=== PATIENT | female | born 1955 | race Caucasian/White ===

== ENCOUNTER → 2019-09-13 09:25 | Outpatient (BNVA) | payer MEDICARE, OTHER, SELFPAY | PROVIDERS: Family Provider Physician Assistant Medical; PCP Physician Assistant Medical; Visit Provider Internal Medicine Rheumatology | DX: M47.814 Spondylosis without myelopathy or radiculopathy, thoracic region (principal); M18.11 Unilateral primary osteoarthritis of first carpometacarpal joint, right hand; Z79.899 Other long term (current) drug therapy; I83.93 Asymptomatic varicose veins of bilateral lower extremities | CPT/HCPCS: 36415; 84550; 85651; 86140; 99213 ==

== ENCOUNTER → 2020-02-20 08:38 | Outpatient (BNVA) | payer MEDICARE, OTHER, SELFPAY | PROVIDERS: Family Provider Physician Assistant Medical; PCP Family Medicine; Visit Provider Dermatology | DX: L21.9 Seborrheic dermatitis, unspecified (principal); L82.0 Inflamed seborrheic keratosis; D18.01 Hemangioma of skin and subcutaneous tissue; L81.4 Other melanin hyperpigmentation; B35.1 Tinea unguium; I78.1 Nevus, non-neoplastic; Z12.83 Encounter for screening for malignant neoplasm of skin | CPT/HCPCS: 17000; 17110; 99203; 99204 ==

== ENCOUNTER → 2020-05-21 14:18 | Outpatient (BNVA) | payer MEDICARE, OTHER, SELFPAY | PROVIDERS: Family Provider Physician Assistant Medical; PCP Family Medicine; Visit Provider Internal Medicine Rheumatology | DX: M47.814 Spondylosis without myelopathy or radiculopathy, thoracic region (principal); M18.11 Unilateral primary osteoarthritis of first carpometacarpal joint, right hand; Z79.899 Other long term (current) drug therapy; I73.00 Raynaud's syndrome without gangrene; I83.93 Asymptomatic varicose veins of bilateral lower extremities | CPT/HCPCS: 99213 ==

== ENCOUNTER 2020-05-21 15:29 | Outpatient (CLI) | payer MEDICARE, OTHER, SELFPAY ==
[2020-05-21 15:54] LABS: Basophils # 0.1 10^3/uL (0.0-0.1); Basophils % 0.8 %; Eosinophils # 0.2 10^3/uL (0.0-0.8); Hemoglobin 13.7 g/dL (11.5-15.3); Lymphocytes # 1.8 10^3/uL (0.8-4.8); Lymphocytes % 18.7 %; Mean Corpuscular HGB Conc 32.6 g/dL (30.0-36.0); Mean Corpuscular Hemoglobin 29.3 pg (28.0-34.0); Mean Corpuscular Volume 89.9 fL (81-99); Mean Platelet Volume 9.7 fL (7.4-10.4); Monocytes # 0.8 10^3/uL (0.2-0.9); Monocytes % 8.5 %; Neutrophils # 6.84 10^3/uL (1.8-7.7); Neutrophils % 69.7 %; Nucleated Red Blood Cells % 0 %; Platelet Count 275 10^3/cmm (130-400); Red Blood Count 4.67 10^6/uL (4.1-5.3); Red Cell Distribution Width 13.2 % (12.1-15.1); White Blood Count 9.8 10^3/uL (4.0-10.0)
--- NOTE | 2020-05-21 15:54 | XRR_ITS ---
PROCEDURE INFORMATION: Exam: XR Pelvis Exam date and time: 05/21/2020 4:10 PM Age: 65 years old Clinical indication: Other: Low back pain TECHNIQUE: Imaging protocol: XR pelvis. Views: 1 or 2 view. COMPARISON: No relevant prior studies available. FINDINGS: Bones/joints: There are moderate to severe degenerative changes in the lower lumbar spine and moderate degenerative changes in both sacroiliac joints and hip joints. There is chondrocalcinosis in both hips. No acute fracture, bony destruction or avascular necrosis. No evidence of sacroiliitis. Soft tissues: Unremarkable. XR/XR pelvis 1-2V* [id number] IMPRESSION: Degenerative changes greatest in the lumbar spine. No acute bony abnormality. Calcific tendinopathy in the hips is noted.
--- NOTE | 2020-05-21 15:54 | XRR_ITS ---
PROCEDURE INFORMATION: Exam: XR Lumbosacral Spine, 2 or 3 Views Exam date and time: 05/21/2020 4:10 PM Age: 65 years old Clinical indication: Low back pain; Prior surgery; Surgery type: L4/l5 disc replacment TECHNIQUE: Imaging protocol: XR of the lumbosacral spine, 2 or 3 views. COMPARISON: No relevant prior studies available. FINDINGS: Vertebrae: There is a probable old fracture of the superior endplate of L2 involving the superior endplate without significant retropulsed bone. There are marginal osteophytes and sclerosis Severe disc space narrowing and endplate degenerative changes are noted at L4-L5 and L5-S1. There is no subluxation. Vacuum discs are noted at L4-L5 and L5-S1. Soft tissues: Unremarkable. XR/XR lumbar spine 2-3V* [id number] IMPRESSION: Probable old anterior column fracture of L2 without definite retropulsed bone. No acute fracture or subluxation. Severe degenerative changes in the lower lumbar spine are noted.
[2020-05-21 16:47] LABS: Alanine Aminotransferase 22 U/L (0-33); Albumin Level 4.4 g/dL (3.5-5.2); Aspartate Amino Transferase 22 U/L (0-32); Total Bilirubin 0.2 mg/dL (0.15-1.2); Total Protein 7.4 g/dL (6.6-8.7)
[2020-05-21 16:52] LABS: Erythrocyte Sedimentation Rate 32 mm/hr (0-15)
[2020-05-21 17:40] LABS: C Reactive Protein 6.6 mg/L (0.0-4.9)
[2020-05-21 17:57] LABS: Alkaline Phosphatase 120 IU/L (35-105); Uric Acid 6.7 mg/dL (2.4-5.7)
[2020-05-22 14:28] LABS: Anti-Nuclear Antibody Screen NEGATIVE (NEGATIVE)
== END 2020-05-21 15:30 | disposition home or self-care (01) ==
LOC: LAB 15:37
PROVIDERS: PCP Family Medicine; Visit Provider Internal Medicine Rheumatology
DX: Z79.899 Other long term (current) drug therapy (principal); M54.5 Low back pain
CPT/HCPCS: 36415; 72100; 72170; 80076; 82565; 84550; 85025; 85651; 86038; 86140

== ENCOUNTER 2020-06-16 12:21 | Outpatient (CLI) | payer MEDICARE, OTHER, SELFPAY ==
--- NOTE | 2020-06-16 12:45 | XR_ITS ---
WS: [id number] Bone mineral density performed on a [employer], 06/16/2020 Clinical data: osteoporosis screening Findings: The first 4 lumbar vertebral bodies demonstrated the bone mineral density of 1.099 g/cm2 for a young adult T score of -0.7. Measurement of the left hip reveals a bone mineral density of 0.923 g/cm2 with a young adult T score of -0.7. Measurement of the right hip reveals the bone mineral density of 0.848 g/cm2 for young adult T score of -1.3. XR/XR DEXA axial skeleton* [id number] Impression: 1. Normal bone mineral density of the lumbar spine and left hip. 2. Osteopenia of the right hip.
== END 2020-06-16 12:22 | disposition home or self-care (01) ==
LOC: RADWPI 12:24
PROVIDERS: PCP Family Medicine; Visit Provider Internal Medicine Rheumatology
DX: M81.0 Age-related osteoporosis without current pathological fracture (principal); M85.88 Other specified disorders of bone density and structure, other site
CPT/HCPCS: 77080

== ENCOUNTER → 2022-02-02 10:32 | Outpatient (BNVA) | payer MEDICARE, SELFPAY | PROVIDERS: PCP Family Medicine; Visit Provider Internal Medicine | DX: M18.11 Unilateral primary osteoarthritis of first carpometacarpal joint, right hand (principal); M47.814 Spondylosis without myelopathy or radiculopathy, thoracic region; M54.2 Cervicalgia; N18.9 Chronic kidney disease, unspecified; I73.00 Raynaud's syndrome without gangrene; R79.82 Elevated C-reactive protein (CRP); Z90.5 Acquired absence of kidney | CPT/HCPCS: 72040; 72072; 73030; 73120; 99214 ==

== ENCOUNTER → 2022-02-25 10:15 | Outpatient (BNVA) | payer MEDICARE, SELFPAY | PROVIDERS: PCP Family Medicine; Visit Provider Internal Medicine | DX: M18.11 Unilateral primary osteoarthritis of first carpometacarpal joint, right hand (principal); M47.814 Spondylosis without myelopathy or radiculopathy, thoracic region; I73.00 Raynaud's syndrome without gangrene; R79.82 Elevated C-reactive protein (CRP); I10 Essential (primary) hypertension; I83.93 Asymptomatic varicose veins of bilateral lower extremities; Z87.891 Personal history of nicotine dependence | CPT/HCPCS: 20600; 36415; 80053; 84550; 85025; 85651; 86140; 86200; 86431; 99214 ==

== ENCOUNTER 2022-03-26 11:45 | Outpatient (CLI) | payer MEDICARE, OTHER, SELFPAY ==
--- NOTE | 2022-03-26 12:00 | USCV_ITS ---
Nanette Gao Age: 67 Gender: F : 1955 Exam Date: 03/26/2022 12:26 Ordering Phys: Jack Grimaldo M.D ([email or web address]) Technologist: Mine Aceves [place]am [place] [facility] [place]: leg pain Risk Factors: previous smoker. Previous Vascular Surgery: None RIGHT LEFT BP: 135.0 / 7.00 BP: 120.0/ 70.00 0 0 Waveform Velocity (cm/s) Velocity (cm/s) Waveform Triphasic 97.4 Iliac Prox 88.0 Triphasic Triphasic 99.1 Iliac Mid 78.6 Triphasic Triphasic 70.9 Iliac Distal 74.3 Triphasic Triphasic 53.6 PHARMACOGENETICIST 73.5 Triphasic Biphasic 52.0 SFA Prox 68.4 Biphasic Biphasic SFA Mid Biphasic 50.2 51.3 Biphasic 172.5 SFA Dist 123.5 Monophasic Monophasic 32.0 POP 38.1 Biphasic Biphasic 22.7 DOCUMENT IMAGE TECHNICIAN 26.2 Monophasic Biphasic 29.5 DPA 39.4 Monophasic 0.6 AJAY 0.7 FINDINGS RT DPA- 82, RT DOCUMENT IMAGE TECHNICIAN- 82 - RT femoral artery mid/distal segments exhibit flow changes with vessel narrowing LT DPA - 88, LT DOCUMENT IMAGE TECHNICIAN- 84 - Left femoral artery mid/distal segments exhibit flow changees with vessel narrowing. A possible AV fistula noted in the mid segment of the femoral artery. Moderate dense diffuse plaques in the superficial femoral artery on both sides. CONCLUSIONS Abnormal resting AJAY of 0.6 , suggesting moderately severe peripheral artery disease involving the distal superficial femoral artery on the right side. Abnormal resting AJAY of 0.7 suggesting moderate peripheral artery disease involving the distal superficial femoral artery on the left side. Dr Sawyer Garvin MD [facility] (Electronically Signed) Final Date: 28 March 2022 18:12 S
== END 2022-03-26 11:46 | disposition home or self-care (01) ==
LOC: RAD 11:48
PROVIDERS: PCP Family Medicine; Visit Provider Internal Medicine
DX: M79.606 Pain in leg, unspecified (principal); I73.00 Raynaud's syndrome without gangrene
CPT/HCPCS: 93925

== ENCOUNTER 2022-04-23 08:19 | Outpatient (CLI) | payer MEDICARE, OTHER, SELFPAY ==
--- NOTE | 2022-04-23 08:25 | MM_ITS ---
WS: [id number] Bilateral screening 3D tomosynthesis digital mammogram, 04/23/2022 Clinical Data: SCREENING Comparison: 11/06/2020, 06/27/2019, 06/23/2018, 12/16/2016, 06/19/2015, 05/09/2014, 10/10/2012. Findings: The breast parenchymal pattern shows fat replacement. No spiculated masses or clustered calcification s are seen. There are no secondary signs of carcinoma. Mole markers are on both breasts. MM/[place] [id number] Impression: 1. Negative bilateral mammogram unchanged. 2. Recommend annual screening mammograms. BIRADS: 1-Negative FOLLOW UP: 1 Year Follow-up The CAD mold checker was used.
== END 2022-04-23 08:20 | disposition home or self-care (01) ==
LOC: RAD 08:20
PROVIDERS: PCP Family Medicine; Visit Provider Family Medicine
DX: Z12.31 Encounter for screening mammogram for malignant neoplasm of breast (principal)
CPT/HCPCS: 77063; 77067

== ENCOUNTER 2022-04-27 13:07 | Outpatient (CLI) | payer MEDICARE, OTHER, SELFPAY ==
--- NOTE | 2022-04-27 13:30 | USCV_ITS ---
Nanette Gao Age: 67 Gender: F : 1955 Exam Date: 04/27/2022 13:26 Ordering Phys: Jack Grimaldo M.D ([email or web address]) Technologist: Joe Stringer Exam Location: [facility] – [place] Indication: HISTORY: PROCEDURES: Bilateral duplex Venous Insufficiency study of the Deep and Superficial systems was carried out according to normal protocol with the patient in supine positon for deep system and dependent position for the superficial system. FINDINGS: All deep veins demonstrated compressibility without evidence of intraluminal thrombus or increased echogenicity. Spectral analysis of Doppler signals demonstrates normal response to compression maneuvers indicating patency without obstruction. Reflux determinations were made with the patient in the dependent position, the weight being on the contralateral leg. There is sinificant reflux in both leg the great saph on the lt is very shallow CONCLUSIONS 1. No evidence of DVT in the above-mentioned identifiable veins. 2. On the right side significant venous reflux of greater than 500 milliseconds were noted at the proximal, mid, distal and below-knee segments of the greater saphenous vein. The proximal, distal and below-knee segments of the greater saphenous vein were found to be less than 1 cm deep from the surface. The venous segments are of normal caliber 3. On the left side, significant venous reflux of greater than 500 ms were noted at the proximal, mid and distal segments of the greater saphenous vein. These venous segments were found to be very superficial. Proximal segment of the small saphenous vein was not visualized. No other significant reflexes were noted Dr Sawyer Garvin MD [facility] (Electronically Signed) Final Date: 01 May 2022 15:44 S
== END 2022-04-27 13:08 | disposition home or self-care (01) ==
LOC: RAD 13:07
PROVIDERS: PCP Family Medicine; Visit Provider Internal Medicine
DX: I83.93 Asymptomatic varicose veins of bilateral lower extremities (principal); I87.2 Venous insufficiency (chronic) (peripheral)
CPT/HCPCS: 93970

== ENCOUNTER → 2022-05-06 15:06 | Outpatient (BNVA) | payer MEDICARE, OTHER, SELFPAY | PROVIDERS: PCP Family Medicine; Visit Provider Internal Medicine | DX: I12.9 Hypertensive chronic kidney disease with stage 1 through stage 4 chronic kidney disease, or unspecified chronic kidney disease (principal); N18.9 Chronic kidney disease, unspecified; I73.9 Peripheral vascular disease, unspecified; Z87.891 Personal history of nicotine dependence | CPT/HCPCS: 99214 ==

== ENCOUNTER 2022-08-01 22:59 | Inpatient (IN) | payer MEDICARE, OTHER, SELFPAY ==
[2022-08-01 23:02] VITALS: BP 146/114; PULSE 159; RESP 25; TEMP 36.8; O2SAT 97; BMI 31.8
--- NOTE | 2022-08-01 23:15 | XRR_ITS ---
PROCEDURE INFORMATION: Exam: XR Chest Exam date and time: 08/01/2022 11:42 PM Age: 67 years old Clinical indication: Dyspnea and other: Tachycardia; Additional info: Palpitations TECHNIQUE: Imaging protocol: Radiologic exam of the chest. Views: 1 view. COMPARISON: CR XR chest 1V [id number] 03/14/2019 6:16 AM FINDINGS: Lungs: Unremarkable. No consolidation. Pleural spaces: Unremarkable. No pleural effusion. No pneumothorax. Heart/Mediastinum: Unremarkable. No cardiomegaly. Bones/joints: Unremarkable. XR/XR chest 1V portable [id number] IMPRESSION: No acute findings.
[2022-08-01 23:16] VITALS: BP 142/116; PULSE 162; RESP 24; O2SAT 97
--- NOTE | 2022-08-01 23:16 | ECG_ITS ---
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 Measurements Intervals [place] Rate: 159 P: 0 MD: 0 QRS: -6 QRSD: 83 T: 51 QT: 279 QTc: 454 Interpretive Statements ATRIAL FIBRILLATION WITH RAPID VENTRICULAR RESPONSE POSSIBLE RIGHT VENTRICULAR CONDUCTION DELAY [RSR (QR) IN V1/V2] PROBABLE SEPTAL MYOCARDIAL INFARCTION , OF INDETERMINATE AGE [35 ms Q WAVE IN V1/V2] ST DEPRESSION, CONSIDER SUBENDOCARDIAL INJURY Compared to ECG 03/14/2019 05:49:27 ST (T wave) deviation now present Sinus bradycardia no longer present Myocardial infarct finding still present Electronically Signed On 08-02-2022 5:52:51 HOGSHEAD FILLER by Mel Briseno M.D. [id number]
[2022-08-01 23:27] LABS: Basophils # 0.1 10^3/uL (0.0-0.1); Basophils % 0.7 %; Eosinophils # 0.4 10^3/uL (0.0-0.8); Eosinophils % 4.1 %; Hematocrit 41.9 % (37.0-47.0); Hemoglobin 13.9 g/dL (11.5-15.3); Lymphocytes # 2.5 10^3/uL (0.8-4.8); Lymphocytes % 28.9 %; Mean Corpuscular HGB Conc 33.2 g/dL (30.0-36.0); Mean Corpuscular Hemoglobin 28.8 pg (28.0-34.0); Mean Corpuscular Volume 86.9 fl (81-99); Mean Platelet Volume 10.6 fL (7.4-10.4); Monocytes # 0.9 10^3/uL (0.2-0.9); Monocytes % 10.1 %; Nucleated Red Blood Cells % 0 %; Platelet Count 243 10^3/cmm (130-400); Red Blood Count 4.82 10^6/uL (4.1-5.3); Red Cell Distribution Width 13.5 % (12.1-15.1); White Blood Count 8.8 10^3/uL (4.0-10.0)
[2022-08-01] MEDS: dilTIAZem 5 mg/mL SDV 5 mL 20 MG IVP (23:44)
[2022-08-01 23:45] VITALS: BP 131/100; PULSE 154; RESP 17; O2SAT 95
[2022-08-01] MEDS: sodium chloride 0.9% 1,000 ML 200 ML IV (23:49)
[2022-08-01 23:51] LABS: Troponin(5th) Baseline 7 ng/L (0-10)
[2022-08-01] MEDS: dilTIAZem 100 MG in sodium chloride 0.9% (add-van) 100 ML IV (23:51)
[2022-08-01 23:55] VITALS: BP 129/89; PULSE 129; RESP 17; O2SAT 95
[2022-08-02] VITALS (63 sets, daily range): BP systolic 95–132; BP diastolic 65–99; PULSE 82–147; RESP 13–34; TEMP 36.3–36.6; O2SAT 83–98; BMI 32.8
[2022-08-02 00:01] LABS: Alanine Aminotransferase 20 U/L (0-33); Albumin Level 4.2 g/dL (3.5-5.2); Alkaline Phosphatase 103 U/L (35-105); Anion Gap 14.8 (5-19); Aspartate Amino Transferase 19 U/L (0-32); Blood Urea Nitrogen 17 mg/dL (8-23); Calcium 9.8 mg/dL (8.5-10.5); Carbon Dioxide 27 mmol/L (22-29); Chloride 97 mmol/L (98-107); Creatine Phosphokinase 105 U/L (26-192); Globulin 3.3 g/dL (1.3-4.6); Glucose 136 mg/dL (65-115); NT Pro B Type Natriuretic Pept 55 pg/mL (0-125); Osmolality Calculated 286 mOsm/kg (285-295); Sodium 136 mmol/L (136-145); Thyroid Stimulating Hormone 2.11 uIU/mL (0.27-4.20); Total Bilirubin 0.2 mg/dL (0.15-1.2); Total Protein 7.5 g/dL (6.6-8.7)
[2022-08-02 00:04] LABS: Potassium 2.8 mmol/L (3.5-5.1)
--- NOTE | 2022-08-02 00:04 | ED_ITS ---
HPI - Arrhythmia/Palpitations General: Chief Complaint: ER Hold Stated Complaint: CP Time Seen by Provider: 08/01/22 23:08 Source: patient History of Present Illness: 48yo female. She presents with chest discomfort, and shortness of breath. She has had palpitations this evening as well. She has no history of atrial fibrillation. MD complaint: rapid heart beat and heart racing Onset (ago): hour(s) Duration: constant Severity: moderate Associated symptoms: Reports anxiety, nausea and short of breath; Deny vomiting Review of Systems Const: Denies: fever(s) Eyes: Denies: change in vision ENMT: Denies: throat pain Card: Reports: chest pain and palpitations Resp: Reports: dyspnea GI: Reports: nausea; Denies: vomiting Neuro: Denies: headache(s) Psych: Reports: anxiety PFSH ED PFSH: Medical History Arthritis of carpometacarpal (CMC) joint of right thumb Back pain with history of spinal surgery Cervicalgia CKD (chronic kidney disease) CRP elevated DJD (degenerative joint disease) of thoracic spine Essential hypertension Inflammatory arthritis Osteoarthritis Raynaud phenomenon Raynauds disease Varicose veins of both lower extremities Surgical History History of appendectomy History of cholecystectomy Family History Grandmother Diabetes Father Family history of CABG Denies family history of Rheumatoid arthritis Lupus Social History Smoking and tobacco status: former smoker Alcohol intake: never Physical Exam Const: GENERAL APPEARANCE: cooperative and ill appearing (mild) HENMT: COMMON NORMALS: normocephalic and Normal external nose present HEAD & SCALP: normocephalic FACE & SINUS: normal facial exam and face symmetric NOSE: Normal external nose present Eye: COMMON NORMALS: Equal, round and reactive pupils present and EOMs intact bilaterally PUPIL: Yes Equal, round and reactive pupils present Neck/C-Spine: GENERAL: Yes trachea midline Chest: CHEST: Yes Symmetrical chest wall rise Resp: COMMON NORMALS: normal respiratory effort, No use of accessory muscles and clear to auscultation bilaterally AUSCULTATION: clear to auscultation bilaterally Cardio: RATE: tachycardic RHYTHM: abnormal rhythm GI: COMMON NORMALS: Normal to inspection, nondistended, normoactive bowel sounds present and Soft to palpation PALPATION: Yes Soft to palpation Extremity: COMMON NORMALS: no pedal edema Neuro: TIAN COMA SCALE: document GCS findings Tian coma scale eye opening: Spontaneous Carver coma scale verbal response: Orientated Tian coma scale motor response: Obey commands Tian coma scale total score: 15 SPEECH: speech normal Skin: COMMON NORMALS: no rashes or lesions noted GENERAL SKIN EXAM: no rashes or lesions noted Course Vital Signs: Vital signs: Vital Signs Temperature 98.4 F 08/03/22 16:39 Pulse Rate 60 08/03/22 16:39 Respiratory Rate 16 08/03/22 16:39 Blood Pressure 141/75 08/03/22 16:39 Pulse Oximetry 96 08/03/22 16:39 Oxygen Delivery Me thod 08/03/22 15:50 MDM - Arrhythmia/Palpitations Medical Decision Making Pt found to be in atrial fibriallation with RVR. Given a bolus of diltiazem with some improvement. She is placed on a drip. Heart rate is below 100. Troponin is negative. no significant ST changes cxr was negative. she'l be a dmitted for rate control and further workup. hospitalist is notified and has accepted. Lab Data 08/01/22 23:14 08/01/22 23:14 Radiology Impressions Chest X-Ray 08/01/22 23:15 IMPRESSION: No acute findings. Laboratory Results WBC 7.3 10^3/uL (4.0-10.0) 08/02/22 07:20 RBC 4.47 10^6/uL (4.1-5.3) 08/02/22 07:20 Hgb 12.7 g/dL (11.5-15.3) 08/02/22 07:20 Hct 39.8 % (37.0-47.0) 08/02/22 07:20 MCV 89.0 fl (81-99) 08/02/22 07:20 MCH 28.4 pg (28.0-34.0) 08/02/22 07:20 MCHC 31.9 g/dL (30.0-36.0) 08/02/22 07:20 RDW 13.8 % (12.1-15.1) 08/02/22 07:20 Plt Count 252 10^3/cmm (130-400) 08/02/22 07:20 MPV 9.8 fL (7.4-10.4) 08/02/22 07:20 Neut % (Auto) 58.6 % 08/02/22 07:20 Lymph % (Auto) 25.6 % 08/02/22 07:20 [place] % (Auto) 11.5 % 08/02/22 07:20 Eos % (Auto) 3.5 % 08/02/22 07:20 Baso % (Auto) 0.7 % 08/02/22 07:20 Neut # (Auto) 4.29 10^3/uL (1.8-7.7) 08/02/22 07:20 Lymph # (Auto) 1.9 10^3/uL (0.8-4.8) 08/02/22 07:20 [place] # (Auto) 0.8 10^3/uL (0.2-0.9) 08/02/22 07:20 Eos # (Auto) 0.3 10^3/uL (0.0-0.8) 08/02/22 07:20 Baso # (Auto) 0.1 10^3/uL (0.0-0.1) 08/02/22 07:20 Nucleated RBC % (auto) 0 % 08/02/22 07:20 Nucleated RBCs # 0.0 /100WBC 08/02/22 07:20 PT 13.90 SECONDS (12.1-14.9) 08/01/22 23:48 INR 1.04 (0.8-1.2) 08/01/22 23:48 APTT 29.1 SECONDS (23.9-36.7) 08/01/22 23:48 D-Dimer 0.71 ug/mIFEU (0-0.59) H 08/01/22 23:48 Sodium 143 mmol/L (136-145) 08/02/22 07:12 Potassium 3.9 mmol/L (3.5-5.1) 08/02/22 07:12 Chloride 110 mmol/L (98-107) H 08/02/22 07:12 Carbon Dioxide 23 mmol/L (22-29) 08/02/22 07:12 Anion Gap 13.9 (5-19) 08/02/22 07:12 BUN 15 mg/dL (8-23) 08/02/22 07:12 Creatinine 0.6 mg/dL (0.5-0.9) 08/02/22 07:12 GFR Calculation 99.1 mL/min (90-130) 08/02/22 07:12 Glucose 106 mg/dL (65-115) 08/02/22 07:12 Estimat Average Glucose 114 08/02/22 07:20 Hemoglobin A1c 5.6 % (4.0-6.0) 08/02/22 07:20 Calculated Osmolality 297 mOsm/kg (285-295) H 08/02/22 07:12 Calcium 8.6 mg/dL (8.5-10.5) 08/02/22 07:12 Magnesium 2.0 mg/dL (1.7-2.3) 08/02/22 07:12 Total Bilirubin 0.2 mg/dL (0.15-1.2) 08/02/22 07:12 AST 14 U/L (0-32) 08/02/22 07:12 ALT 15 U/L (0-33) 08/02/22 07:12 Alkaline Phosphatase 87 U/L (35-105) 08/02/22 07:12 Creatine Kinase 105 U/L (26-192) 08/01/22 23:14 Troponin T Baseline 7 ng/L (0-10) 08/01/22 23:14 Troponin T Hi Sens 6Hr 24.26 ng/L (0-10) H 08/02/22 07:12 Troponin T Hi Sens 6Hr Delta 17.26 ng/L (0-12) H* 08/02/22 07:12 NT-Pro-B Natriuret Pep 55 pg/mL (0-125) 08/01/22 23:14 Total Protein 6.1 g/dL (6.6-8.7) L 08/02/22 07:12 Albumin 3.7 g/dL (3.5-5.2) 08/02/22 07:12 Globulin 2.4 g/dL (1.3-4.6) 08/02/22 07:12 Triglycerides 112 mg/dL (0-150) 08/02/22 07:12 Cholesterol 173 mg/dL (0-200) 08/02/22 07:12 LDL Cholesterol, Calc 104 mg/dL (50-129) 08/02/22 07:12 HDL Cholesterol 47 mg/dL (60-100) L 08/02/22 07:12 LDL/HDL Ratio 2.21 RATIO (0.00-3.22) 08/02/22 07:12 Cholesterol/HDL Ratio 3.68 mg/dL (0.0-4.40) 08/02/22 07:12 Procalcitonin 0.02 ng/mL (0-0.5) 08/02/22 07:12 TSH 2.11 uIU/mL (0.27-4.20) 08/01/22 23:14 Urine Color Yellow (Yellow) 08/02/22 06:58 Urine Appearance Sl hazy (CLEAR) A 08/02/22 06:58 Urine pH 6.5 (5-7) 08/02/22 06:58 Ur Specific Central 1.015 (1.005-1.030) 08/02/22 06:58 Urine Protein Neg (Negative) 08/02/22 06:58 Urine Glucose (UA) Norm (Normal) 08/02/22 06:58 Urine Ketones Negative (Negative) 08/02/22 06:58 Urine Blood Neg (Negative) 08/02/22 06:58 Urine Nitrate Negative (Negative) 08/02/22 06:58 Urine Bilirubin Neg (Negative) 08/02/22 06:58 Urine Urobilinogen Norm mg/dL (Negative) 08/02/22 06:58 Ur Leukocyte Esterase 1+ (Negative) H 08/02/22 06:58 Urine RBC 0-4 /hpf (0-2) H 08/02/22 06:58 Urine WBC 5-10 /hpf (0-5) H 08/02/22 06:58 Ur Squamous Epith Cells 0-4 /hpf (0-5) H 08/02/22 06:58 Amorphous Sediment Not Reportable 08/02/22 06:58 Urine Bacteria Trace /hpf (NONE) 08/02/22 06:58 Urine Mucus Trace /hpf 08/02/22 06:58 Nasal Influ A H1 2008 PCR Not detected (NOT DETECT) 08/01/22 23:48 Adenovirus (PCR) Not detected (NOT DETECT) 08/01/22 23:48 C. pneumoniae DNA (PCR) Not detected (NOT DETECT) 08/01/22 23:48 Coronavirus 229E (PCR) Not detected (NOT DETECT) 08/01/22 23:48 Human Metapneumovir PCR Not detected (NOT DETECT) 08/01/22 23:48 Influenza A (H1) PCR Not detected (NOT DETECT) 08/01/22 23:48 Influenza A (H3) PCR Not detected (NOT DETECT) 08/01/22 23:48 Influenza Type A (PCR) Not detected (NOT DETECT) 08/01/22 23:48 Influenza Type B (PCR) Not detected (NOT DETECT) 08/01/22 23:48 M. pneumoniae (PCR) Not detected (NOT DETECT) 08/01/22 23:48 Parainfluenza 1 (PCR) Not detected (NOT DETECT) 08/01/22 23:48 Parainfluenza 2 (PCR) Not detected (NOT DETECT) 08/01/22 23:48 Parainfluenza 3 (PCR) Not detected (NOT DETECT) 08/01/22 23:48 Parainfluenza 4 (PCR) Not detected (NOT DETECT) 08/01/22 23:48 RSV Type A (PCR) Not detected (NOT DETECT) 08/01/22 23:48 RSV Type B (PCR) Not detected (NOT DETECT) 08/01/22 23:48 Entero/Rhino (PCR) Not detected (NOT DETECT) 08/01/22 23:48 SARS-CoV-2 (PCR) Not detected (NOT DETECT) 08/01/22 23:48 Critical Care Time Critical Care Time: Critical Care Time: Yes Total Critical Care Time: 35 Attestation: This case had a high probability of a clinically significant, sudden, or life threatening deterioration of this patient's condition which required my full and direct attention, intervention and personal management. time is independent of any procedures performed. Discharge Plan Discharge Patient Disposition: Placed in Observation Admit Provider: June Ross Clinical Impression: Atrial fibrillation, Chest pain Discharge Diet: Usual diet Discharge Activity: Resume usual activity Coding Level of Care Code ED Zinc Furnace Charger for Preet Fernández
[2022-08-02 00:08] LABS: INR 1.04 (0.8-1.2)
[2022-08-02 00:10] LABS: Partial Thromboplastin Time 29.1 SECONDS (23.9-36.7)
[2022-08-02 00:12] LABS: D Dimer 0.71 ug/mIFEU (0-0.59)
[2022-08-02] MEDS: lidocaine 2% viscous 15 ML, aluminum-mag hydrox-simethicon 30 ML, sucralfate oral liq 1 GM PO (00:53)
[2022-08-02] MEDS: potassium chloride oral liq 20 mEq/15 mL UDC 40 MEQ PO (00:53)
[2022-08-02] MEDS: metoprolol tartrate 1 mg/1 mL SDV 5 mL 2.5 MG IVP (00:55)
[2022-08-02] MEDS: potassium chloride premix 100 ML 50 MEQ IV (01:01)
--- NOTE | 2022-08-02 01:16 | ECG_ITS ---
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 Measurements Intervals [place] Rate: 120 P: 0 NV: 0 QRS: -7 QRSD: 71 T: 24 QT: 316 QTc: 446 Interpretive Statements ATRIAL FIBRILLATION WITH RAPID VENTRICULAR RESPONSE LOW QRS VOLTAGE IN PRECORDIAL LEADS [QRS DEFLECTION < 1.0 mV IN CHEST LEADS] POSSIBLE RIGHT VENTRICULAR CONDUCTION DELAY [RSR (QR) IN V1/V2] POSSIBLE SEPTAL MYOCARDIAL INFARCTION , OF INDETERMINATE AGE [30 ms Q WAVE IN V1/V2] Compared to ECG 03/14/2019 05:49:27 Sinus bradycardia no longer present Myocardial infarct finding still present Electronically Signed On 08-02-2022 6:02:21 TALKING BOOKS LIBRARY CLERK by Mel Briseno M.D. [id number]
--- NOTE | 2022-08-02 01:25 | P.HP_ITS ---
Providers/Chief Complaint Primary Care Provider: Grady Felton Chief Complaint: CP History of Present Illness Nanette Gao is a 67 year old female with past medical history of degenerative joint disease, essential hypertension, osteoarthritis, Raynaud's disease, varicose veins of bilateral lower extremities, presented to ER with complaint of heart rate being too high. She states that she checked her blood pressure at home and it was in the 200s and heart rate was 159. Thereafter she presented to the ER. She also states that she has felt her right lower leg has been little bit more swollen than usual. There is no pain however. She says she may have had a few spells of this questionable high heart rate in the past however she slept it off and did not think much of it. She has never had this before. Denies a history of heart disease, shortness of breath, chest pain, abdominal pain, nausea, vomiting, diarrhea. Family present at bedside. She says she recently saw Dr. Ramsey for pain in her legs for which she was given cilostazol and then she stopped taking it after reading about the side effects. She also states she apparently has 1 kidney. 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 At this time she is comfortable when seen. Blood pressure 160/80. Heart rate 1 15-1 20. Running Cardizem drip at this time. Medications/Allergies Home Medications Medication Instructions Recorded Confirmed Last Taken Type potassium chloride 10 mEq 10 meq PO DAILY 09/12/19 05/06/22 Unknown History capsule,extended release turmeric root extract 500 mg 500 mg PO DAILY 09/12/19 05/06/22 Unknown History capsule magnesium oxide 250 mg PO DAILY 12/17/19 05/06/22 Unknown History multivitamin 1 tab PO DAILY 12/17/19 05/06/22 Unknown History hydrochlorothiazide 50 mg tablet 50 mg PO DAILY #90 tabs 06/24/20 05/06/22 Unknown Rx mupirocin 2 % topical ointment 1 applic topical BID 2 weeks #22 06/08/21 05/06/22 Unknown Rx grams fluticasone propionate 50 1 spray intranasal DAILY PRN 02/25/22 05/06/22 Unknown History mcg/actuation nasal spray,suspension (Flonase Allergy Relief) pantoprazole 40 mg tablet,delayed 40 mg PO DAILY PRN 02/25/22 05/06/22 Unknown History release (Protonix) cilostazol 50 mg tablet 50 mg PO DIRECTED #180 tabs 05/06/22 05/06/22 Unknown Rx dicyclomine 10 mg capsule 10 mg PO QID PRN 05/06/22 05/06/22 Unknown History prednisone 5 mg tablet See Rx Instructions PO DAILY PRN 05/06/22 05/06/22 Unknown History Allergies Allergy/AdvReac Type Severity Reaction Status Date / Time Penicillins Allergy Intermediate rash, hives Verified 08/01/22 23:09 sulfamethoxazole Allergy Mild nausea Verified 08/01/22 23:09 [From Bactrim] trimethoprim [From Bactrim] Allergy Mild nausea Verified 08/01/22 23:09 ciprofloxacin [From Cipro] Allergy Unknown Unknown Verified 08/01/22 23:09 clarithromycin [From Biaxin] Allergy Unknown Unknown Verified 08/01/22 23:09 metronidazole [From Flagyl] Allergy Unknown Unknown Verified 08/01/22 23:09 PFSH Acute PFSH: Medical History Arthritis of carpometacarpal (CMC) joint of right thumb Back pain with history of spinal surgery Cervicalgia CKD (chronic kidney disease) CRP elevated DJD (degenerative joint disease) of thoracic spine Essential hypertension Inflammatory arthritis Osteoarthritis Raynaud phenomenon Raynauds disease Varicose veins of both lower extremities Surgical History History of appendectomy History of cholecystectomy Family History Grandmother Diabetes Father Family history of CABG Denies family history of Rheumatoid arthritis Lupus Social History Smoking and tobacco status: former smoker Alcohol intake: never Vitals/I&O/Wt Last Vital Signs Temp 98.3 F 08/01/22 23:02 Pulse 129 H 08/01/22 23:55 Resp 17 08/01/22 23:55 BP 129/89 08/01/22 23:55 Pulse Ox 95 08/01/22 23:55 O2 Del Method 08/01/22 23:02 Weight last 48 hrs Weight 86.636 kg Physical Exam Narrative: General: Alert oriented x3, patient seen sitting up in bed appearing comfortable telemetry at bedside. HEENT: Normocephalic, atraumatic, EOMI, breathing comfortably. Cardio: irregularly irregular, tachycardic normal S1-S2, Respiratory: Clear to auscultation bilaterally no wheezes no rhonchi no crackles appreciated. GI: Abdomen soft, nontender, nondistended, bowel sounds + Behavior: Appropriate and cooperative Extremities: No bilateral lower extremity edema appreciated. Right leg does appear very very slightly larger than the other leg. Data 08/01/22 23:14 08/01/22 23:14 A&P Assessment and plan (1) Claudication: (2) Raynauds disease: (3) CKD (chronic kidney disease): (4) Essential hypertension: (5) Varicose veins of both lower extremities: Qualifiers: Varicose vein complication: asymptomatic Qualified Code(s): I83.93 - Asymptomatic varicose veins of bilateral lower extremities (6) Arthritis of carpometacarpal (CMC) joint of right thumb: (7) DJD (degenerative joint disease) of thoracic spine: Qualifiers: Spinal osteoarthritis complication: without myelopathy or radiculopathy Qualified Code(s): M47.814 - Spondylosis without myelopathy or radiculopathy, thoracic region (8) Atrial fibrillation: Plan #New onset atrial fibrillation #Hypokalemia #History of osteoarthritis #Varicose veins #Hypertension #Mild peripheral arterial disease #History of renal disease ? Check TSH ? Continue Cardizem drip ? [id number] 4. Patient is on a baby aspirin at home. ? Patient has moderate to high risk for stroke. Discussed with her regarding starting Eliquis. She says she will think about it and let us know. In the meantime I will cover her with therapeutic Lovenox 80x1 ? Replete potassium. Patient received 60 in the ER. To plan on admission ? BNP negative ? Check echo for valvular dysfunction ? Unsure about the solitary kidney. Try reaching out to primary care doctor in a.m.? ? D-dimer 0.71 which if age-adjusted is low risk for VTE ? We will check ultrasound duplex bilateral lower extremities ? Continue to replete electrolytes as needed ? We will hold hydrochlorothiazide at this time Full code DVT prophylaxis: Being covered with therapeutic Lovenox at this time Attestations Medical Necessity Statement*: Admit for observation. Anticipate discharge after heart rate stable. She may have to stay another day if heart rate remains uncontrolled and she requires multiple medications for her atrial fibrillation. Time Spent in Patient Care: 40 Coding Level of Care Code Acute Youth Support Worker for g Fwd Diagnoses Claudication I73.9 Raynauds disease I73.00 CKD (chronic kidney disease) N18.9 Essential hypertension I10 Varicose veins of both lower extremities I83.93 Varicose vein complication: asymptomatic Arthritis of carpometacarpal (CMC) joint of right thumb M18.11 DJD (degenerative joint disease) of thoracic spine M47.814 Spinal osteoarthritis complication: without myelopathy or radiculopathy Atrial fibrillation I48.91
[2022-08-02 01:31] LABS: Adenovirus Not Detected (NOT DETECT); Chlamydia Pneumoniae Not Detected (NOT DETECT); Coronavirus 229E,HKU1,NL63,OC4 Not Detected (NOT DETECT); Human Metapneumovirus Not Detected (NOT DETECT); Human Rhinovirus/Enterovirus Not Detected (NOT DETECT); Influenza A Not Detected (NOT DETECT); Influenza A H1 Not Detected (NOT DETECT); Influenza A H1-2009 Not Detected (NOT DETECT); Influenza A H3 Not Detected (NOT DETECT); Influenza B Not Detected (NOT DETECT); Mycoplasma Pneumoniae Not Detected (NOT DETECT); Parainfluenza Virus Type 1 Not Detected (NOT DETECT); Parainfluenza Virus Type 2 Not Detected (NOT DETECT); Parainfluenza Virus Type 3 Not Detected (NOT DETECT); Parainfluenza Virus Type 4 Not Detected (NOT DETECT); Respiratory Syncytial Virus A Not Detected (NOT DETECT); Respiratory Syncytial Virus B Not Detected (NOT DETECT); SARS-COV-2 Not Detected (NOT DETECT)
--- NOTE | 2022-08-02 02:08 | USCV_ITS ---
Nanette Gao Age: 67 Gender: F : 1955 Exam Date: 08/02/2022 03:01 Ordering Phys: June Ross MD Technologist: Emily Mauro Exam Location: [facility] – [place] Indication: New onset AFIB BP: 86 / 65 HR: 123 Rhythm: Sinus Technical Quality: Adequate MEASUREMENTS (Male / Female) Normal Values 2D ECHO LV Diastolic Diameter PLAX 3.0 cm 4.2 - 5.9 / 3.9 - 5.3 cm LV Systolic Diameter PLAX 2.1 cm LV Chamber Size 2.6 cm IVS Diastolic Thickness 1.1 cm 0.6 - 1.0 / 0.6 - 0.9 cm IVS Systolic Thickness 1.6 cm LVPW Diastolic Thickness 1.2 cm 0.6 - 1.0 / 0.6 - 0.9 cm LVPW Systolic Thickness 1.4 cm RV Chamber Size 2.9 cm LVOT Diameter 2.0 cm LV Ejection Fraction 2D Teich 56.3 % LV Ejection Fraction MOD 2C 70.5 % LV Ejection Fraction 2C AL 69.8 % LA Diameter 3.8 cm LA Width 2.9 cm LA Height 3.9 cm RA Width 3.6 cm RA Height 4.4 cm Aorta at Sinotubular Diameter 3.1 cm IVC Diameter 1.8 cm M-MODE Aortic Annulus Diameter 3.4 cm LA Ao Ratio MM 1.4 MV E Point Septal Separation 0.4 cm DOPPLER AV Peak Velocity 104.0 cm/s LVOT Peak Velocity 95.0 cm/s AV Area Cont Eq vti 2.7 cm squared AV Area Cont Eq pk 2.9 cm squared MV Area PHT 3.6 cm squared MV E' Velocity 44.8 cm/s Mitral E to MV E' Ratio 7.9 Mitral E to LV E' Lateral Ratio 6.5 Mitral E to LV E' Septal Ratio 10.1 TR Peak Velocity 77.5 cm/s TR Peak Gradient 2.4 mmHg TR Mean Velocity 65.7 cm/s TR Mean Gradient 1.8 mmHg TR Velocity Time Integral 20.0 cm Right Atrial Pressure 3.0 mmHg Pulmonary Artery Systolic Pressu 5.4 mmHg RV Acceleration Time 0.1 s RV Ejection Time 0.4 s RV AcT/ET 0.4 FINDINGS Left Ventricle Normal left ventricular size, systolic function and wall thickness, with no regional wall motion abnormalities. Left ventricular ejection fraction is estimated at 60 %. Rhythm precludes evaluation of diastolic function. Right Ventricle Normal right ventricular size and systolic function. RVSP could not be calculated due to incomplete tricuspid regurgitation velocity profile. Right Atrium Normal right atrial size. Left Atrium Normal left atrial size. Mitral Valve Structurally normal mitral valve. No mitral valve stenosis. No mitral valve regurgitation. Aortic Valve Structurally normal trileaflet aortic valve. No aortic valve stenosis. No aortic valve regurgitation. Tricuspid Valve Structurally normal tricuspid valve. No tricuspid valve stenosis. Trace tricuspid valve regurgitation. Pulmonic Valve Pulmonic valve not well visualized. No pulmonary valve stenosis. No pulmonary valve regurgitation. Pericardium No pericardial effusion. Aorta Normal size aortic root and proximal ascending aorta. IVC Inferior vena cava not visualized. CONCLUSIONS 1. Normal left ventricular size, systolic function and wall thickness, with no regional wall motion abnormalities. Left ventricular ejection fraction is estimated at 60 %. 2. Normal right ventricular size and systolic function. 3. No significant valvular abnormality. 4. No prior similar studies to compare. Mel Briseno MD (Electronically Signed) Final Date: 02 August 2022 15:26 S
[2022-08-02] MEDS: pantoprazole 40 mg SDV IVP (03:40)
[2022-08-02] MEDS: heparin 5,000 unit/mL INJ 1 mL 5000 UNIT SUBCUT (03:40)
--- NOTE | 2022-08-02 06:57 | ECG_ITS ---
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 Measurements Intervals [place] Rate: 118 P: 0 OR: 0 QRS: 11 QRSD: 89 T: 60 QT: 342 QTc: 479 Interpretive Statements ATRIAL FIBRILLATION WITH RAPID VENTRICULAR RESPONSE SEPTAL MYOCARDIAL INFARCTION , OF INDETERMINATE AGE [40+ ms Q WAVE IN V1/V2] Compared to ECG 08/02/2022 01:40:00 No significant changes Electronically Signed On 08-02-2022 15:33:45 MH TEACHER by Mel Briseno M.D. [id number]
[2022-08-02 07:28] LABS: Basophils # 0.1 10^3/uL (0.0-0.1); Basophils % 0.7 %; Eosinophils # 0.3 10^3/uL (0.0-0.8); Eosinophils % 3.5 %; Hematocrit 39.8 % (37.0-47.0); Hemoglobin 12.7 g/dL (11.5-15.3); Lymphocytes # 1.9 10^3/uL (0.8-4.8); Lymphocytes % 25.6 %; Mean Corpuscular HGB Conc 31.9 g/dL (30.0-36.0); Mean Corpuscular Hemoglobin 28.4 pg (28.0-34.0); Mean Platelet Volume 9.8 fL (7.4-10.4); Monocytes # 0.8 10^3/uL (0.2-0.9); Monocytes % 11.5 %; Neutrophils # 4.29 10^3/uL (1.8-7.7); Neutrophils % 58.6 %; Nucleated Red Blood Cells % 0 %; Platelet Count 252 10^3/cmm (130-400); Red Blood Count 4.47 10^6/uL (4.1-5.3); Red Cell Distribution Width 13.8 % (12.1-15.1); White Blood Count 7.3 10^3/uL (4.0-10.0)
--- NOTE | 2022-08-02 07:37 | USCV_ITS ---
Nanette Gao Age: 67 Gender: F : 1955 Exam Date: 08/02/2022 07:54 Ordering Phys: June Ross MD Technologist: Joe Stringer Exam Location: [facility] – [place]_ Indication: rt leg leg pain r/o dvt PROCEDURES: The venous duplex Doppler examination of both lower extremities was performed in the standard fashion. The following venous structures were evaluated: common femoral vein, profunda vein, proximal portion of the greater saphenous vein, superficial femoral vein, and the popliteal vein. In addition, the posterior tibial and peroneal trunk were evaluated. FINDINGS: Normal 2-D Doppler and augmentation and compressibility throughout the lower extremity venous structures. Additional imaging through the proximal calf veins also reveals no thrombus. Limited evaluation of the greater saphenous vein is patent with no thrombus.. CONCLUSIONS No evidence of right lower extremity DVT. No evidence of left lower extremity DVT. Pj Dan MD (Electronically Signed) Final Date: 02 August 2022 08:35 S
[2022-08-02 07:40] LABS: Bilirubin Urine Neg (Negative); Blood Urine Neg (Negative); Glucose Urine UA Norm (Normal); Ketones Urine Negative (Negative); Nitrate Urine Negative (Negative); Protein Urine Neg (Negative); Specific Gravity, Urine 1.015 (1.005-1.030); Urine Appearance SL Hazy (CLEAR); Urine Color Yellow (Yellow); Urobilinogen Urine Norm (Negative); pH Urine 6.5 (5-7)
[2022-08-02 07:41] LABS: Add Urine Culture? No; Add Urine Microscopic? YES; Bacteria Urine TRACE /hpf; Leukocyte Esterase Urine 1+ (Negative); Mucus Urine TRACE /hpf; RBC Urine 0-4 /hpf (0-2); Squamous Epithelial Cell Urine 0-4 /hpf (0-5)
[2022-08-02 07:42] LABS: Troponin 5 6HR 24.26 ng/L (0-10)
[2022-08-02 07:45] LABS: Estmated Average Glucose 114; Hemoglobin A1C 5.6 % (4.0-6.0)
[2022-08-02 07:46] LABS: Alanine Aminotransferase 15 U/L (0-33); Albumin Level 3.7 g/dL (3.5-5.2); Alkaline Phosphatase 87 U/L (35-105); Anion Gap 13.9 (5-19); Aspartate Amino Transferase 14 U/L (0-32); Blood Urea Nitrogen 15 mg/dL (8-23); Calcium 8.6 mg/dL (8.5-10.5); Carbon Dioxide 23 mmol/L (22-29); Chloride 110 mmol/L (98-107); Chol HDL Ratio 3.68 mg/dL (0.0-4.40); Cholesterol 173 mg/dL (0-200); Globulin 2.4 g/dL (1.3-4.6); Glomerular Filtration Rate 99.1 mL/min (90-130); Glucose 106 mg/dL (65-115); HDL Cholesterol 47 mg/dL (60-100); LDL Cholesterol Calculated 104 mg/dL (50-129); LDL HDL Ratio 2.21 RATIO (0.00-3.22); Osmolality Calculated 297 mOsm/kg (285-295); Potassium 3.9 mmol/L (3.5-5.1); Sodium 143 mmol/L (136-145); Total Bilirubin 0.2 mg/dL (0.15-1.2); Total Protein 6.1 g/dL (6.6-8.7); Triglycerides 112 mg/dL (0-150)
[2022-08-02 07:49] LABS: Troponin 5 6HR Delta 17.26 ng/L (0-12)
[2022-08-02 07:53] LABS: Procalcitonin 0.02 ng/mL (0-0.5)
[2022-08-02] MEDS: enoxaparin 80 mg/0.8 mL Syringe SUBCUT (08:49)
[2022-08-02] MEDS: sodium chloride 0.9% 1,000 ML 100 ML IV ×2 (09:19→23:24)
[2022-08-02] MEDS: dilTIAZem 100 MG in sodium chloride 0.9% (add-van) 100 ML 10 MG IV (09:24)
[2022-08-02] MEDS: acetaminophen 325 mg Tablet 650 MG PO (10:33)
--- NOTE | 2022-08-02 16:47 | PM.MISC ---
Miscellaneous Note Note: Overnight labs and H&P noted. Continues to be tachycardic with heart rate between 100-1 20, with jumps to 150. Continues to be on Cardizem drip at 10/h at this time. We will start overlap with p.o. Cardizem in an attempt to wean off the drip. Patient has not yet made up her mind about anticoagulation.
[2022-08-02] MEDS: dilTIAZem 30 mg Tablet PO ×2 (18:04→22:56)
[2022-08-03] MEDS: dilTIAZem 100 MG in sodium chloride 0.9% (add-van) 100 ML 10 MG IV (02:15)
[2022-08-03] MEDS: pantoprazole 40 mg SDV IVP (02:21)
[2022-08-03 03:03] VITALS: BP 111/83; PULSE 127; RESP 30; TEMP 36.6; O2SAT 95
[2022-08-03 03:09] LABS: Basophils # 0.1 10^3/uL (0.0-0.1); Basophils % 0.9 %; Eosinophils # 0.3 10^3/uL (0.0-0.8); Eosinophils % 4.9 %; Hematocrit 35.4 % (37.0-47.0); Hemoglobin 11.2 g/dL (11.5-15.3); Lymphocytes # 1.9 10^3/uL (0.8-4.8); Mean Corpuscular HGB Conc 31.6 g/dL (30.0-36.0); Mean Corpuscular Hemoglobin 28.4 pg (28.0-34.0); Mean Corpuscular Volume 89.6 fl (81-99); Mean Platelet Volume 10.5 fL (7.4-10.4); Monocytes # 0.6 10^3/uL (0.2-0.9); Monocytes % 10.6 %; Neutrophils # 2.88 10^3/uL (1.8-7.7); Neutrophils % 50.3 %; Nucleated Red Blood Cells % 0 %; Platelet Count 204 10^3/cmm (130-400); Red Blood Count 3.95 10^6/uL (4.1-5.3); White Blood Count 5.7 10^3/uL (4.0-10.0)
[2022-08-03 03:31] LABS: Alanine Aminotransferase 16 U/L (0-33); Albumin Level 3.3 g/dL (3.5-5.2); Alkaline Phosphatase 73 U/L (35-105); Anion Gap 12.3 (5-19); Aspartate Amino Transferase 15 U/L (0-32); Blood Urea Nitrogen 12 mg/dL (8-23); Calcium 8.1 mg/dL (8.5-10.5); Carbon Dioxide 23 mmol/L (22-29); Chloride 110 mmol/L (98-107); Globulin 2.4 g/dL (1.3-4.6); Glomerular Filtration Rate 99.1 mL/min (90-130); Glucose 95 mg/dL (65-115); Osmolality Calculated 294 mOsm/kg (285-295); Potassium 3.3 mmol/L (3.5-5.1); Sodium 142 mmol/L (136-145); Total Bilirubin 0.2 mg/dL (0.15-1.2); Total Protein 5.7 g/dL (6.6-8.7)
--- NOTE | 2022-08-03 04:36 | PC.NURSE ---
Pt HR 140s. Cardizem gtt titrated from 10mg/hr to 15mg/hr.
--- NOTE | 2022-08-03 05:06 | PC.NURSE ---
Pt converted from afib/rvr [id number] to NSR HR-60. Cardizem gtt stopped. Dr. Stanley notified. No new orders given.
[2022-08-03] MEDS: dilTIAZem 30 mg Tablet PO ×2 (05:37→11:11)
[2022-08-03 06:00] VITALS: PULSE 111
[2022-08-03 07:08] VITALS: BP 110/73; PULSE 63; RESP 25; TEMP 37.1; O2SAT 92
--- NOTE | 2022-08-03 10:59 | PC.CHAP ---
Pastoral Care Encounter/Spiritual Assessment Type of Contact [] Declined metal reed tuner visit [] Patient/Family/Request visit [] Outpatient visit [] Follow-up visit [] Physician referral [] Code/Alert [x] Routine visit [] Staff referral [] Actively dying [] Patient sleeping [] Family support [] [] Out of room [] Palliative care [] [] Receiving care in room [] Pre-surgical visit [] Trauma [] Long length of stay [] ICU visit [] Other: Relational/Emotional Strength [x] Patient feels connected with others/family/visitors/staff [] Distress [] Loneliness/isolation [] Abandonment Spirituality of Patient [x] Person of Laura [] Attends [employer] of their Laura [] Believes in Prayer [] Reads Bible or Congregation materials [] There are Spiritual issues to be addressed Rate Examiner Interventions [x] Prayer [x] Active listening [x] Non-anxious presence [] Spiritual/emotional support [] Crisis/trauma care [] Spiritual counseling [] Bereavement support [] Provided bereavement packet [] Provided Bible/devotional materials [] Provided toy/stuffed animal, coloring book to patient or family member [] Provided Communion [] Anointing/[place] [] Salvation [x] Completed spiritual assessment [] Other: Impact on Illness or Injury [] Angry [] Fearful [] Anxious [] Often cries [] Exhaustion [] Unable to work [] Unable to attend episcopal [] Unable to walk/stand [] Unable to read [] Unable to drive [] Unable to eat/drink [] Unable to sleep [] Unable to be with family [] Patient intubated [] Other: Summary patient feeling weii Time spent with patient 10 min
[2022-08-03 11:07] VITALS: BP 127/74; PULSE 66; RESP 19; TEMP 37; O2SAT 93
--- NOTE | 2022-08-03 14:58 | P.DS_ITS ---
Discharge Providers Date of Admission: 08/02/22 18:15 Date of Discharge: August 03, 2022 Attending Provider at Admission: June Ross MD Attending Provider at Discharge: Cassy Gonzalez MD Primary Care Provider: Grady Felton Diagnoses at Discharge Discharge Diagnosis (1) Claudication: Status: Acute (2) Raynauds disease: Status: Acute (3) CKD (chronic kidney disease): Status: Acute (4) Essential hypertension: Status: Acute (5) Varicose veins of both lower extremities: Status: Acute Qualifiers: Varicose vein complication: asymptomatic Qualified Code(s): I83.93 - Asymptomatic varicose veins of bilateral lower extremities (6) Arthritis of carpometacarpal (CMC) joint of right thumb: Status: Acute (7) DJD (degenerative joint disease) of thoracic spine: Status: Acute Qualifiers: Spinal osteoarthritis complication: without myelopathy or radiculopathy Qualified Code(s): M47.814 - Spondylosis without myelopathy or radiculopathy, thoracic region (8) Atrial fibrillation: Status: Acute Reason for Visit Reason for Visit: CP Hospital Course Hospital Course Nanette Gao is a 67 year old female with past medical history of degenerative joint disease, essential hypertension, osteoarthritis, Raynaud's disease, varicose veins of bilateral lower extremities, presented to ER with complaint of heart rate being too high.? She states that she checked her blood pressure at home and it was in the 200s and heart rate was 159.? Thereafter she presented to the ER.? Here she was found to have new onset A. fib with RVR. She was placed on Cardizem drip which continued until 4 AM on 08/03/2022. She was overlapped with p.o. Cardizem 30 mg every 6 hours. She converted into sinus rhythm this morning and has remained in a sinus rhythm since 4 AM today. Her Adi vas score is at 4, recommended to start anticoagulation with Eliquis, however patient is extremely hesitant to start anticoagulation and has many reservations about this. Instead she she is willing to take aspirin 325 mg p.o. daily which we will start today. Recommended follow-up with cardiology within a week's time. Echocardiogram does not show any acute abnormalities. No signs of ACS. Her hydrochlorothiazide remained on hold during this admission and her blood pressure was well controlled with the Cardizem. At the time of discharge we have cut this back to 25 mg p.o. daily. She is instructed to maintain a blood pressure chart by checking blood pressure twice a day at the same time and take it to her primary care provider for further changes. She is being discharged today in improved condition. Physical Exam Narrative: General: No acute distress, AO x3 HEENT: PERRLA, pupils bilaterally equal and reactive, pallors not present Chest: Normal vesicular breath sounds, no added sounds, equal good air entry bilaterally CVS: S1-S2 regular, no murmurs, no tachycardia, no gallops, no rubs Abdomen: Soft, nontender, no organomegaly, bowel sounds present Neuro: No focal deficits, no facial deformity, AO x3, power 5/5 in all limbs Discharge Data Studies Completed and Pending Completed Studies During Hospitalization Category Date Time Status XR chest 1V portable [id number] Stat Exams 08/01/22 23:15 Completed CV. echo complete* [id number] Stat Ultrasound 08/02/22 02:08 Completed US venous duplex lower extremity bilat [CV venous Ultrasound 08/02/22 07:37 [place] [id number]] Routine Radiology Impressions Chest X-Ray 08/01/22 23:15 IMPRESSION: No acute findings. Laboratory Results WBC 5.7 10^3/uL (4.0-10.0) 08/03/22 02:10 RBC 3.95 10^6/uL (4.1-5.3) L 08/03/22 02:10 Hgb 11.2 g/dL (11.5-15.3) L 08/03/22 02:10 Hct 35.4 % (37.0-47.0) L 08/03/22 02:10 MCV 89.6 fl (81-99) 08/03/22 02:10 MCH 28.4 pg (28.0-34.0) 08/03/22 02:10 MCHC 31.6 g/dL (30.0-36.0) 08/03/22 02:10 RDW 14.0 % (12.1-15.1) 08/03/22 02:10 Plt Count 204 10^3/cmm (130-400) 08/03/22 02:10 MPV 10.5 fL (7.4-10.4) H 08/03/22 02:10 Neut % (Auto) 50.3 % 08/03/22 02:10 Lymph % (Auto) 33.0 % 08/03/22 02:10 [place] % (Auto) 10.6 % 08/03/22 02:10 Eos % (Auto) 4.9 % 08/03/22 02:10 Baso % (Auto) 0.9 % 08/03/22 02:10 Neut # (Auto) 2.88 10^3/uL (1.8-7.7) 08/03/22 02:10 Lymph # (Auto) 1.9 10^3/uL (0.8-4.8) 08/03/22 02:10 [place] # (Auto) 0.6 10^3/uL (0.2-0.9) 08/03/22 02:10 Eos # (Auto) 0.3 10^3/uL (0.0-0.8) 08/03/22 02:10 Baso # (Auto) 0.1 10^3/uL (0.0-0.1) 08/03/22 02:10 Nucleated RBC % (auto) 0 % 08/03/22 02:10 Nucleated RBCs # 0.0 /100WBC 08/03/22 02:10 PT 13.90 SECONDS (12.1-14.9) 08/01/22 23:48 INR 1.04 (0.8-1.2) 08/01/22 23:48 APTT 29.1 SECONDS (23.9-36.7) 08/01/22 23:48 D-Dimer 0.71 ug/mIFEU (0-0.59) H 08/01/22 23:48 Sodium 142 mmol/L (136-145) 08/03/22 02:10 Potassium 3.3 mmol/L (3.5-5.1) L 08/03/22 02:10 Chloride 110 mmol/L (98-107) H 08/03/22 02:10 Carbon Dioxide 23 mmol/L (22-29) 08/03/22 02:10 Anion Gap 12.3 (5-19) 08/03/22 02:10 BUN 12 mg/dL (8-23) 08/03/22 02:10 Creatinine 0.6 mg/dL (0.5-0.9) 08/03/22 02:10 GFR Calculation 99.1 mL/min (90-130) 08/03/22 02:10 Glucose 95 mg/dL (65-115) 08/03/22 02:10 Estimat Average Glucose 114 08/02/22 07:20 Hemoglobin A1c 5.6 % (4.0-6.0) 08/02/22 07:20 Calculated Osmolality 294 mOsm/kg (285-295) 08/03/22 02:10 Calcium 8.1 mg/dL (8.5-10.5) L 08/03/22 02:10 Magnesium 2.0 mg/dL (1.7-2.3) 08/03/22 02:10 Total Bilirubin 0.2 mg/dL (0.15-1.2) 08/03/22 02:10 AST 15 U/L (0-32) 08/03/22 02:10 ALT 16 U/L (0-33) 08/03/22 02:10 Alkaline Phosphatase 73 U/L (35-105) 08/03/22 02:10 Creatine Kinase 105 U/L (26-192) 08/01/22 23:14 Troponin T Baseline 7 ng/L (0-10) 08/01/22 23:14 Troponin T Hi Sens 6Hr 24.26 ng/L (0-10) H 08/02/22 07:12 Troponin T Hi Sens 6Hr Delta 17.26 ng/L (0-12) H* 08/02/22 07:12 NT-Pro-B Natriuret Pep 55 pg/mL (0-125) 08/01/22 23:14 Total Protein 5.7 g/dL (6.6-8.7) L 08/03/22 02:10 Albumin 3.3 g/dL (3.5-5.2) L 08/03/22 02:10 Globulin 2.4 g/dL (1.3-4.6) 08/03/22 02:10 Triglycerides 112 mg/dL (0-150) 08/02/22 07:12 Cholesterol 173 mg/dL (0-200) 08/02/22 07:12 LDL Cholesterol, Calc 104 mg/dL (50-129) 08/02/22 07:12 HDL Cholesterol 47 mg/dL (60-100) L 08/02/22 07:12 LDL/HDL Ratio 2.21 RATIO (0.00-3.22) 08/02/22 07:12 Cholesterol/HDL Ratio 3.68 mg/dL (0.0-4.40) 08/02/22 07:12 Procalcitonin 0.02 ng/mL (0-0.5) 08/02/22 07:12 TSH 2.11 uIU/mL (0.27-4.20) 08/01/22 23:14 Urine Color Yellow (Yellow) 08/02/22 06:58 Urine Appearance Sl hazy (CLEAR) A 08/02/22 06:58 Urine pH 6.5 (5-7) 08/02/22 06:58 Ur Specific [place] 1.015 (1.005-1.030) 08/02/22 06:58 Urine Protein Neg (Negative) 08/02/22 06:58 Urine Glucose (UA) Norm (Normal) 08/02/22 06:58 Urine Ketones Negative (Negative) 08/02/22 06:58 Urine Blood Neg (Negative) 08/02/22 06:58 Urine Nitrate Negative (Negative) 08/02/22 06:58 Urine Bilirubin Neg (Negative) 08/02/22 06:58 Urine Urobilinogen Norm mg/dL (Negative) 08/02/22 06:58 Ur Leukocyte Esterase 1+ (Negative) H 08/02/22 06:58 Urine RBC 0-4 /hpf (0-2) H 08/02/22 06:58 Urine WBC 5-10 /hpf (0-5) H 08/02/22 06:58 Ur Squamous Epith Cells 0-4 /hpf (0-5) H 08/02/22 06:58 Amorphous Sediment Not Reportable 08/02/22 06:58 Urine Bacteria Trace /hpf (NONE) 08/02/22 06:58 Urine Mucus Trace /hpf 08/02/22 06:58 Nasal Influ A H1 2009 PCR Not detected (NOT DETECT) 08/01/22 23:48 Adenovirus (PCR) Not detected (NOT DETECT) 08/01/22 23:48 C. pneumoniae DNA (PCR) Not detected (NOT DETECT) 08/01/22 23:48 Coronavirus 229E (PCR) Not detected (NOT DETECT) 08/01/22 23:48 Human Metapneumovir PCR Not detected (NOT DETECT) 08/01/22 23:48 Influenza A (H1) PCR Not detected (NOT DETECT) 08/01/22 23:48 Influenza A (H3) PCR Not detected (NOT DETECT) 08/01/22 23:48 Influenza Type A (PCR) Not detected (NOT DETECT) 08/01/22 23:48 Influenza Type B (PCR) Not detected (NOT DETECT) 08/01/22 23:48 M. pneumoniae (PCR) Not detected (NOT DETECT) 08/01/22 23:48 Parainfluenza 1 (PCR) Not detected (NOT DETECT) 08/01/22 23:48 Parainfluenza 2 (PCR) Not detected (NOT DETECT) 08/01/22 23:48 Parainfluenza 3 (PCR) Not detected (NOT DETECT) 08/01/22 23:48 Parainfluenza 4 (PCR) Not detected (NOT DETECT) 08/01/22 23:48 RSV Type A (PCR) Not detected (NOT DETECT) 08/01/22 23:48 RSV Type B (PCR) Not detected (NOT DETECT) 08/01/22 23:48 Entero/Rhino (PCR) Not detected (NOT DETECT) 08/01/22 23:48 SARS-CoV-2 (PCR) Not detected (NOT DETECT) 08/01/22 23:48 Vitals Last Vital Signs Temp 98.6 F 08/03/22 11:07 Pulse 66 08/03/22 11:07 Resp 19 H 08/03/22 11:07 BP 127/74 08/03/22 11:07 Pulse Ox 93 08/03/22 11:07 O2 Del Method 08/03/22 11:07 Discharge Plan Discharge Patient Disposition: Home Condition: Stable Prescriptions: New diltiazem HCl 30 mg Tablet 30 mg PO Q6H 30 Days Qty: 120 0RF aspirin 325 mg capsule 325 mg PO DAILY Qty: 30 0RF Continued magnesium oxide 250 mg magnesium tablet 250 mg PO DAILY multivitamin Tablet 1 tab PO DAILY turmeric root extract 500 mg capsule 500 mg PO DAILY potassium chloride 10 mEq capsule, extended release 10 meq PO DAILY pantoprazole [Protonix] 40 mg tablet,delayed release (DR/EC) 40 mg PO DAILY mupirocin 2 % ointment 1 applic topical BID 14 Days Qty: 22 1RF albuterol sulfate 2.5 mg /3 mL (0.083 %) solution for nebulization 2.5 mg inhalation Q6H PRN (Reason: Shortness Of Breath) Changed hydrochlorothiazide 50 mg tablet 25 mg PO DAILY Qty: 90 3RF Discharge Orders: Discharge Order (Routine); Ordered 08/03/22 Ordered By: Cassy Gonzalez Referrals: Ayah Espinoza FNP [Nurse Practitioner] - 1 week Jack Grimaldo M.D [Physician] - 1 month Discharge Diet: Usual diet Discharge Activity: Resume usual activity Patient Instructions: Opioid Safety Discharge Attestations Time Spent in Discharge Care*: greater than 30 min Quality Metrics Clinical Quality Measures [ No reported AMI, CVA or VTE this stay] Coding Level of Care Code Acute [facility] note Diagnoses Claudication I73.9 Raynauds disease I73.00 CKD (chronic kidney disease) N18.9 Essential hypertension I10 Varicose veins of both lower extremities I83.93 Varicose vein complication: asymptomatic Arthritis of carpometacarpal (CMC) joint of right thumb M18.11 DJD (degenerative joint disease) of thoracic spine M47.814 Spinal osteoarthritis complication: without myelopathy or radiculopathy Atrial fibrillation I48.91
[2022-08-03 15:50] VITALS: BP 141/75; PULSE 60; RESP 16; TEMP 36.9; O2SAT 96
[2022-08-03 16:39] VITALS: BP 141/75; PULSE 60; RESP 16; TEMP 36.9; O2SAT 96
--- NOTE | 2022-08-03 17:15 | PC.NURSE ---
Discharge Note Patient discharged to home via ambulation accompanied by family. Discharge instructions reviewed with patient and/or wireless sales representative. Mobile pharmacy medications and/or prescriptions provided. Belongings/home medications returned.
== END 2022-08-03 17:16 | disposition home or self-care (01) | DRG 310 ==
LOC: ER 23:14 → ER IP 08-02 02:27 → CSU 08-02 09:36
PROVIDERS: Admitting Provider Internal Medicine; Emergency Provider Emergency Medicine; PCP Family Medicine; Visit Provider Student in an Organized Health Care Education/Training Program
DX: I48.91 Unspecified atrial fibrillation (principal); I12.9 Hypertensive chronic kidney disease with stage 1 through stage 4 chronic kidney disease, or unspecified chronic kidney disease; N18.9 Chronic kidney disease, unspecified; I73.00 Raynaud's syndrome without gangrene; I83.93 Asymptomatic varicose veins of bilateral lower extremities; Z90.5 Acquired absence of kidney; Z87.891 Personal history of nicotine dependence; E87.6 Hypokalemia; I73.9 Peripheral vascular disease, unspecified
CPT/HCPCS: 36415; 71045; 80053; 80061; 81001; 82550; 83036; 83735; 83880; 84145; 84443; 84484; 85025; 85378; 85610; 85730; 87486; 87581; 87633; 93005; 93306; 93970; 96365; 96366; 96367; 96372; 96375; 99291; C9113; G0378; J1644; J1650; J3480; J3490; J7030

== ENCOUNTER → 2022-08-17 14:05 | Outpatient (BNVA) | payer MEDICARE, OTHER, SELFPAY | PROVIDERS: PCP Family Medicine; Visit Provider Nurse Practitioner Family | DX: I48.91 Unspecified atrial fibrillation (principal); Z87.891 Personal history of nicotine dependence | CPT/HCPCS: 93005; 99214 ==

== ENCOUNTER 2022-11-08 15:34 | Outpatient (CLI) | payer MEDICARE, OTHER, SELFPAY ==
[2022-11-08 16:20] LABS: Basophils # 0.1 10^3/uL (0.0-0.1); Basophils % 0.7 %; Eosinophils # 0.2 10^3/uL (0.0-0.8); Eosinophils % 2.5 %; Hematocrit 39.7 % (37.0-47.0); Lymphocytes # 1.6 10^3/uL (0.8-4.8); Mean Corpuscular HGB Conc 32.7 g/dL (30.0-36.0); Mean Corpuscular Hemoglobin 28.2 pg (28.0-34.0); Mean Corpuscular Volume 86.1 fl (81-99); Mean Platelet Volume 9.8 fL (7.4-10.4); Monocytes # 0.6 10^3/uL (0.2-0.9); Monocytes % 8.6 %; Neutrophils # 4.93 10^3/uL (1.8-7.7); Neutrophils % 65.9 %; Nucleated Red Blood Cells % 0 %; Platelet Count 255 10^3/cmm (130-400); Red Blood Count 4.61 10^6/uL (4.1-5.3); Red Cell Distribution Width 14.1 % (12.1-15.1); White Blood Count 7.5 10^3/uL (4.0-10.0)
[2022-11-08 16:30] LABS: INR 1.01 (0.83-1.21); Prothrombin Time (Patient) 13.6 Seconds (12.0-15.1)
[2022-11-08 16:37] LABS: Blood Urea Nitrogen 14 mg/dL (8-23); Calcium 9.3 mg/dL (8.5-10.5); Carbon Dioxide 23 mmol/L (22-29); Chloride 97 mmol/L (98-107); Glucose 92 mg/dL (65-115); Osmolality Calculated 278 mOsm/kg (285-295); Sodium 134 mmol/L (136-145)
== END 2022-11-08 15:35 | disposition home or self-care (01) ==
LOC: LAB 15:39
PROVIDERS: PCP Family Medicine; Visit Provider Internal Medicine
DX: R06.02 Shortness of breath (principal); I10 Essential (primary) hypertension; R07.9 Chest pain, unspecified; I73.9 Peripheral vascular disease, unspecified; I20.0 Unstable angina; Z87.891 Personal history of nicotine dependence
CPT/HCPCS: 36415; 80048; 85025; 85610; 99214

== ENCOUNTER 2022-11-12 08:33 | Observation (INO) | payer MEDICARE, OTHER, SELFPAY ==
--- NOTE | 2022-11-12 06:00 | XACV_ITS ---
Exam Room: [facility] Ht: 165 cm Wt: 92 kg BSA: 2.09 m2 Gender: Female : 1955 Any Known Allergies: Other Exam Priority: Routine Procedure(s): Procedure Description: Diagnostic procedure Procedure Description: Left Heart Catheterization Procedure Description: Right Heart Catheterization Procedure Description: O2 saturation Procedure Description: Coronary Angiography Diagnostic Cath Status: Elective Diagnostic Findings * INDICATION: Worsening angina / Dyspnea on exertion. * No significant disease noted in the Left Main, Left Anterior Descending, Right, or Circumflex coronary arteries. * Elevated right and left sided cardiac pressure. * Coronary angiography shows right dominance. Conclusions 1. No significant disease noted in the Left Main, Left Anterior Descending, Right, or Circumflex coronary arteries. 2. Elevated right and left sided cardiac pressures. Recommendations * Aggressive risk factor modification. * Will need diuresis as has elevated pressures. * Outpatient cardiology follow up in 4 weeks. Interventional RX Recommendation: medical therapy and/or counseling Diagnostic RX Recommendation: medical therapy and/or counseling Anticoagulation: Heparin Pressures Phase:Rest AO : 138 / 68 ( 96 ) @ 8:51:00 AM 139 / 69 ( 97 ) @ 8:52:00 AM LV : 144 / 7 / 28 @ 8:49:00 AM 145 / 6 / 28 @ 8:51:00 AM RV : 40 / 5 / 25 @ 8:31:00 AM PA : 37 / 17 ( 26 ) @ 8:30:00 AM RA : a wave = 17 v wave = 17 mean = 16 @ 8:31:00 AM PCW : a wave = 20 v wave = 19 mean = 17 @ 8:29:00 AM O2 Content Phase:Rest PA : O2 Content O2: 61.3 @ 8:52:00 AM Saturations Phase:Rest AO : 95 @ 8:51:00 AM PA : 61 @ 8:52:00 AM Cardiac Output Phase:Rest Zoe : 3 @ 9:07:34 AM Zoe Cardiac Index: 1 @ :07:34 AM Flow Phase:Rest Qp : 3 @ 9:07:34 AM Qs : 3 @ 9:07:34 AM Valves Phase:DefaultPhase AV : 5.0 @ 9:07:34 AM 5.0 @ 9:07:34 AM AV Mean Gradient: 9.0 @ 9:07:34 AM 9.0 @ 9:07:34 AM AV Flow: 146 @ :07:34 AM AV Area: 1.1 @ 9:07:34 AM AV Area Index: 0.55 @ 9:07:34 AM Clinical Evaluation EBL: 5mL-10mL Procedural Details Procedure Consent Obtained. Admit Source: Out Patient. Pre-Procedure Time Out. Identified patient by full name and date of as verbalized by the patient/guarantor. Does the consent match the physician's order: Yes. Accurate & Complete Informed Consent: Yes. Inpatient/Outpatient History & Physical on Chart: Yes. If H&P is completed, is and addenduem needed: No; If yes, is the addendum complete: N/A. Visualize and Verify Site with Patient/Guarantor: N/A. Relevant Radiology Images available: N/A. Pre-op teaching completed and patient verbalized understanding. The risks, benefits, and alternatives of sedation and/or procedure were discussed by physician. The patient agrees to continue. Procedure started. [facility] Clinical Fraility Score: 3: Managing Well. Tin Worker Indications: Worsening Angina. Chest Pain Symptom Assessment: Typical Angina Symptoms. Correct patient, site and procedure confirmed by cath team. Current diagnosis: Chest Pain. PERRLA. Strong, equal hand printing equipment mechanic bilaterally. Lungs clear x 5 lobes. IV Site on Arrival: 18 gauge in the left forearm. IV Site on Arrival: 20 gauge in the right anticubital. IV Fluids: 0.9% NaCl at KVO. 0 mL infused prior to label printing machinist. Pre Procedural Pulses: right radial was 3+. Pre Procedural Pulses: bilateral dorsalis pedis was Doppled. Oxygen started at 2liters/min via nasal canula. right groin was prepped with chloroprep then draped in the usual sterile fashion. right radial was prepped with chloroprep then draped in the usual sterile fashion. Physician notified. Baseline sample Acquired. HR: 49 BPM. Physician arrived. Physician scrubbed in. Immediate Pre-Procedure Time Out. Correct Patient: Yes; Correct Procedure: Yes; Correct Site: Yes; Correct Patient Position: Yes; Correct Supplies: Yes; Dried Flammable Prep: Yes; Blood Products Available: N/A;. Lidocaine 1% infiltrated to the right brachial. 18g IV catheter exchanged for 6 Fr sheath in R brachial vein. Ball in. Oximetry samples were obtained. Normal venous range: 60-85%. Normal arterial range: 95-100%. Pressure measurements obtained. ABG drawn and sent with respiratory therapy. Ball-Angle out. Freya Fontaine RN was relieved by Sherri Donald RN, [facility] as monitoring person. Equipment: 6F - Radial. Cardiac Cath Pack. ACIST Manifold Kit Model BT 2000. Heparinized Saline (2 units/mL), 1000 mL bag. Arterial access obtained. A 5 qatari TIG catheter in over the standard J wire. Standard J Wire unable to advance. Standard J wire out. Hand injection of the right upper extremity performed. 0.035 x 260 Stiff Angled Glidewrie in. Multiple views taken of left coronary artery. Exchange glidewire out. Catheter redirected to the RCA. Multiple views taken of right coronary artery. Catheter removed over the exchange J wire. A 5 qatari Angled Pig catheter in over the excchange J wire. EDP Sample taken: LV 144/7,28; HR: 55 BPM; SpO2: 98%. Pullback taken: LV 145/6,28; AO 138/68(96); Mean: 9mmHg, Peak to Peak: 5mmHg, SEP: 20sec/min; HR: 55 BPM; SpO2: 98%. Catheter removed over the exchange glidewire. Dr. Grimaldo scrubbed out. A Manual Compression was successful obtaining hemostatsis at the Right Brachial Vein insertion site. A TR Band was successful obtaining hemostatsis at the Right Radial artery insertion site. TR band placed. Hemostasis obtained. Right brachial Sheath removed and manual pressure held until hemostasis was achieved. Sterile 4x4 and Op-site applied to the puncture site. No oozing or hematoma noted. Post sheath removal instructions were given and the patient verbalized understanding. Post Procedure: Pulses reassessed and unchanged. PERRLA. Strong, equal hand printing equipment mechanic bilaterally. No VTE prophylaxis required. Medication's Wasted: Lidocaine 1% = 1 mL. Medication's Wasted: Nitro = 49.8 mg. Medication's Wasted: Heparin = 1000 units. Medication's Wasted: Other = Versed 1 mg. Medication's Wasted: Other = Fentanyl 75 mcg. Total IV fluids: 55 mL. Post-op diagnosis: Non obstructive CAD/Elevataed right and left sided heart pressures. Complications: none. Estimated blood loss: 5mL-10mL. Responsiveness - Normal response to verbal stimuli; alert and oriented, PERRLA. Airway - Unaffected, no intervention required; spontaneous ventilation. Circulation: W/N/L, pulses unchanged. Nausea/Vomiting: No. Procedure completed. Patient transferred by wheelchair to 1st floor. Vital chart was stopped. Access Site Site: Right Brachial Vein Sheath Size: 6 Fr Hemostasis Method: Manual Compression Hemostasis Success: Successful Site: Right Radial artery Sheath Size: 6 Fr Hemostasis Method: TR Band Hemostasis Success: Successful Procedure Medications Start: 7:21 AM Stop: 7:21 AM Medication: Versed Amount: 1 mg Route: I.V. Start: 7:21 AM Stop: 7:21 AM Medication: Fentanyl Amount: 25 mcg Route: I.V. Start: 7:39 AM Stop: 7:39 AM Medication: Heparin Amount: 5000 units Route: I.V. Start: 7:36 AM Stop: 7:36 AM Medication: Nitrogylcerin Amount: 200 mcg Route: I.A. I, the attending physician, have reviewed and verified all procedure medications. Yes, all medications given per verbal order History/Risk Factors Hypertension: Yes Dyslipidemia: No Peripheral Arterial Disease (PAD): No Myocardial Infarction (MD): No Obesity: Yes Renal Disease: No Tobacco Use: Former Prior Interventions PCI: No CABG: No Valve Surgery: No Report Signatures Finalized by Jack Grimaldo MD on 11/24/2022 12:11 PM
[2022-11-12] MEDS: aspirin 325 mg Tablet PO (06:10)
[2022-11-12] MEDS: diphenhydrAMINE 50 mg Capsule PO (06:10)
[2022-11-12 06:55] VITALS: BP 147/83; PULSE 53; RESP 16; TEMP 37; O2SAT 96; BMI 33.7
--- NOTE | 2022-11-12 07:13 | P.HPUD_ITS ---
Surgery/Procedure H&P Update DATE OF PROCEDURE: November 12, 2022 DATE H&P PERFORMED: 11/08/22 H&P UPDATE INFORMATION: I have reviewed H&P completed within last 30 days, I have examined patient prior to procedure and No changes to prior documentation PREOP DIAGNOSIS: Worsening angina / Dyspnea on exertion PRIMARY INDICATION FOR PROCEDURE: Worsening angina / Dyspnea on exertion PLANNED PROCEDURE: Operation Date: 11/12/22 07:00 Proposed Procedures p [facility] CATH 45405,RO7.9 RO6.02(Bilateral) - Jack Grimaldo M.D Possible percutaneous coronary intervention PATIENT REASSESSED PRIOR TO SEDATION, WITH NO CHANGE NOTED: Yes PHYSICAL EXAM: alert, oriented x 3, clear to auscultation bilaterally and regular rate & rhythm AIRWAY EVAL/ANESTHESIA PLAN: normal airway, ASA III, Local Anesthesia, Risks, benefits & alternatives of sedation and/or procedure discussed and Patient agrees to continue as planned
[2022-11-12 07:45] LABS: Alveolar-Arterial Oxygen Gradi 2.5 mmHg (5-10); Arterial Blood Gas Hematocrit 38.7 % (37-47); Carboxyhemoglobin 0.3 %THgb (0.4-20.1); HGB O2 Sat 93.6 % (95-100); Methemoglobin 0.8 % (0.4-1.5); Total Hemoglobin 12.6 g/dL (12-16)
[2022-11-12 07:46] LABS: Blood Gas Operator Identificat AO; Blood Gas Sample Site Not specified; Blood Gas Sample Type Not specified
[2022-11-12 07:48] LABS: Arterial Blood Gas Hematocrit 35.8 % (37-47); Blood Gas Allen Test Pos; Blood Gas Operator Identificat PA; Blood Gas Sample Type Not specified; Carboxyhemoglobin 1.2 %THgb (0.4-20.1); HGB O2 Sat 60.1 % (95-100); Methemoglobin 0.9 % (0.4-1.5); Total Hemoglobin 11.7 g/dL (12-16)
--- NOTE | 2022-11-12 12:00 | PC.NURSE ---
TR band removed per protocol. No hematoma present. Dressing in place. Patient educated regarding activity restrictions.
[2022-11-12 12:49] VITALS: BP 147/83; PULSE 53; RESP 16; TEMP 37; O2SAT 96
--- NOTE | 2022-11-12 12:51 | PC.NURSE ---
Discharge Note Patient discharged to home via POV accompanied by sister. Discharge instructions reviewed with patient and/or outbound sales representative. Mobile pharmacy medications and/or prescriptions provided. Belongings/home medications returned.
== END 2022-11-12 12:51 | disposition home or self-care (01) ==
LOC: CSU 08:33
PROVIDERS: Admitting Provider Internal Medicine; PCP Family Medicine; Visit Provider Internal Medicine
DX: I20.9 Angina pectoris, unspecified (principal); I10 Essential (primary) hypertension; I73.9 Peripheral vascular disease, unspecified; Z87.891 Personal history of nicotine dependence; Z88.0 Allergy status to penicillin; Z88.2 Allergy status to sulfonamides
CPT/HCPCS: 36415; 82810; 93460; 96365; 99152; 99153; C1751; C1769; C1887; C1894; G0378; J1644; J2250; J3010; J3490; J7030; Q0163; Q9967

== ENCOUNTER → 2022-11-23 09:52 | Outpatient (BNVA) | payer MEDICARE, OTHER, SELFPAY | PROVIDERS: PCP Family Medicine; Visit Provider Nurse Practitioner Family | DX: I12.9 Hypertensive chronic kidney disease with stage 1 through stage 4 chronic kidney disease, or unspecified chronic kidney disease (principal); N18.9 Chronic kidney disease, unspecified; R07.9 Chest pain, unspecified; I48.91 Unspecified atrial fibrillation; Z87.891 Personal history of nicotine dependence; Z79.01 Long term (current) use of anticoagulants | CPT/HCPCS: 36415; 80048; 99214 ==

== ENCOUNTER 2022-12-03 06:34 | Outpatient (CLI) | payer MEDICARE, OTHER, SELFPAY ==
--- NOTE | 2022-12-03 07:30 | USCV_ITS ---
Nanette Gao Age: 67 Gender: F : 1955 Exam Date: 12/03/2022 07:14 Ordering Phys: Jack Grimaldo M.D ([email or web address]) Technologist: CT Exam Location: [facility] [place] Indication: screening aaa HISTORY: Diameter (cm) AP x Transverse x Length Velocity (cm/s) Waveform Prox Aorta: 2.45 x 2.26 x 73.50 Mid Aorta: 1.47 x 1.58 x 95.60 Distal Aorta: 1.24 x 1.41 x 91.50 Right Iliac Prox: 0.99 x 1.14 x 137.20 Left Iliac Prox: 0.94 x 1.01 x 112.30 Stent Prox Landing x x Aneurysmal Sac Max x x Lt Lat Sac Dim Rt Lat Sac Dim Stent Dist Landing x x Right Iliac Stent x x Left Iliac Stent x x Right Renal Art Left Renal Art FINDINGS: normal us CONCLUSIONS No evidence of abdominal aortic or bilateral iliac aneurysm. Pj Dan MD (Electronically Signed) Final Date: 03 December 2022 11:56 S
== END 2022-12-03 06:35 | disposition home or self-care (01) ==
LOC: RAD 06:36
PROVIDERS: PCP Family Medicine; Visit Provider Internal Medicine
DX: Z13.6 Encounter for screening for cardiovascular disorders (principal)
CPT/HCPCS: 76706

== ENCOUNTER 2022-12-15 14:20 | Outpatient (CLI) | payer MEDICARE, OTHER, SELFPAY ==
--- NOTE | 2022-12-15 14:54 | XR_ITS ---
WS: [id number] Left ankle, AP and lateral views, 12/15/2022 Clinical Data: I73.00 - Raynaud's syndrome without gangrene Comparison: None. Findings: No fractures or dislocations are seen. The ankle mortise is normal. The talus and calcaneus are unrem arkable. No soft tissue swelling over the medial or lateral malleolus is seen. There are small fragments adjacent to the medial aspect of the talus seen only on the AP view which m ay be from old trauma or infection. There are small fragments adjacent to the lateral talus and dista l left fibular tip which may be from prior trauma or infection. XR/XR ankle LT 2V [id number] Impression: 1. Negative for fracture or dislocation. 2. Small fragments adjacent to the medial and lateral talus which may be from i nfection and/or trauma.
[2022-12-15 15:19] LABS: Basophils # 0.1 10^3/uL (0.0-0.1); Basophils % 0.8 %; Eosinophils # 0.3 10^3/uL (0.0-0.8); Eosinophils % 3.2 %; Hematocrit 38.9 % (37.0-47.0); Hemoglobin 13.1 g/dL (11.5-15.3); Lymphocytes # 1.8 10^3/uL (0.8-4.8); Mean Corpuscular HGB Conc 33.7 g/dL (30.0-36.0); Mean Corpuscular Hemoglobin 29.9 pg (28.0-34.0); Mean Corpuscular Volume 88.8 fl (81-99); Monocytes # 0.7 10^3/uL (0.2-0.9); Monocytes % 9.4 %; Neutrophils # 4.94 10^3/uL (1.8-7.7); Neutrophils % 63.3 %; Nucleated Red Blood Cells % 0 %; Platelet Count 240 10^3/cmm (130-400); Red Blood Count 4.38 10^6/uL (4.1-5.3); Red Cell Distribution Width 13.6 % (12.1-15.1); White Blood Count 7.8 10^3/uL (4.0-10.0)
[2022-12-15 15:24] LABS: Erythrocyte Sedimentation Rate 27 mm/hr (0-15)
[2022-12-15 15:30] LABS: Alanine Aminotransferase 18 U/L (0-33); Alkaline Phosphatase 113 U/L (35-105); Anion Gap 17.1 (5-19); Aspartate Amino Transferase 19 U/L (0-32); Blood Urea Nitrogen 18 mg/dL (8-23); Calcium 9.4 mg/dL (8.5-10.5); Carbon Dioxide 25 mmol/L (22-29); Chloride 101 mmol/L (98-107); Creatine Phosphokinase 109 U/L (26-192); Globulin 3.1 g/dL (1.3-4.6); Glucose 111 mg/dL (65-115); Osmolality Calculated 293 mOsm/kg (285-295); Phosphorus 3.1 mg/dL (2.5-4.5); Potassium 3.1 mmol/L (3.5-5.1); Sodium 140 mmol/L (136-145); Total Bilirubin 0.2 mg/dL (0.15-1.2); Total Protein 7.1 g/dL (6.6-8.7)
== END 2022-12-15 14:21 | disposition home or self-care (01) ==
LOC: LAB 14:25
PROVIDERS: PCP Family Medicine; Visit Provider Internal Medicine
DX: I73.00 Raynaud's syndrome without gangrene (principal)
CPT/HCPCS: 36415; 73600; 80053; 82550; 83735; 84100; 84550; 85025; 85651; 86140

== ENCOUNTER 2022-12-30 07:21 | Outpatient (CLI) | payer MEDICARE, OTHER, SELFPAY ==
--- NOTE | 2022-12-30 07:30 | FL_ITS ---
WS: [id number] Barium swallow and esophagram, 12/30/2022 Clinical Data: NONTOXIC SINGLE THYROID NODULE/GERD W/O ESOPHAGITIS Comparison: None. Fluoroscopy time: 1min [id number] # of spot films: 20 Findings: The patient swallowed the thick and thin barium, and it flowed through the hypopharynx without hesita tion. No stricture, mass, polyp or erosion was seen. There is minimal posterior indentation by osteoa rthritic arthritic spurring at C5-C6. The barium entered the esophagus and there was normal motility throughout. No polyp, mass, erosion, s tricture or ulceration was seen. There was reflux to the level of the thoracic inlet with a small hia zak hernia. The barium then entered the stomach. FL/FL barium swallow [id number] Impression: 1. Gastroesophageal she'll reflux to the level of the thoracic inlet. 2. Small hiatal hernia.
--- NOTE | 2022-12-30 07:30 | CT_ITS ---
WS: [id number] CT NECK TECHNIQUE: Contrast-enhanced CT of the neck with coronal and sagittal reformatted images. CLINICAL INFORMATION: NONTOXIC SINGLE THYROID NODULE/GERD W/O ESOPHAGITIS COMPARISON: None. DLP: 305.[address] scans at [facility] use at least one of these dose optimization techniques: automated e xposure control; mA and/or kV adjustment per patient size (includes targeted exams where dose is matc hed to clinical indication); or iterative reconstruction. FINDINGS: Tiny 3.5 mm low-attenuation nodule RIGHT thyroid. Heterogeneous isthmus nodule measuring 1.3 x 1.7 CM . Parotid glands are normal. Normal submandibular glands. Normal posterior nasopharynx and parapharyn geal fat. No evidence of supraglottic or glottic mass. Normal subglottic airway. Lung apices are well aerated. Mild spondylitic changes cervical spine. CT/CT neck w con* [id number] IMPRESSION: 1. No evidence of supraglottic or glottic mass. 2. Normal salivary glands. 3. Heterogeneous isthmus nodule measuring 1.7 x 1.3 CM. 4. Tiny RIGHT thyroid nodule measuring 3.5 mm. 5. No other suspicious findings.
[2022-12-30] MEDS: iohexol 350 mg/mL 500 mL Btl (per mL) IV (08:01)
== END 2022-12-30 07:22 | disposition home or self-care (01) ==
LOC: RAD 07:22
PROVIDERS: PCP Family Medicine; Visit Provider Specialist
DX: E04.1 Nontoxic single thyroid nodule (principal); K21.9 Gastro-esophageal reflux disease without esophagitis; K44.9 Diaphragmatic hernia without obstruction or gangrene
CPT/HCPCS: 70491; 74220; Q9967

== ENCOUNTER 2022-12-31 08:11 | Outpatient (CLI) | payer MEDICARE, OTHER, SELFPAY ==
--- NOTE | 2022-12-31 08:45 | MR_ITS ---
WS: [id number] MRI LEFT ANKLE without CONTRAST. COMPARISON: Radiographs 12/15/2022 Multiplanar, multisequence imaging is performed without contrast. Marker is placed along the medial distal ankle at the site of the radiographically visualized small o sseous or calcific densities. No loose bodies are identified. There is no marrow edema or significant soft tissue edema in this location. There is a small amount of increased T2 signal in the subtalar r egion of the calcaneus. There are a few very small erosions or subchondral cysts involving several of the tarsal bones including the navicular, 3 cuneiforms. The alignment is normal. Normal Lisfranc lig ament. 6 mm osteochondral lesion in the lateralmost talar dome. There is no joint effusion. The Achilles tendon is normal. No significant plantar fasciitis. There is no increased fluid within the tendon sheath. MR/MR ankle LT wo con* [id number] IMPRESSION: 1. No signal abnormality noted along the medial ankle at the site of the previ ously described soft tissue erythema. 2. Mild degenerative changes in the tarsal bones in the form of subchondral cy sts or erosions. No fractures or displacement. 3. Mild edema in the subcutaneous talar portion of the calcaneus. 4. 6 mm osteochondral lesion lateral talar dome.
== END 2022-12-31 08:12 | disposition home or self-care (01) ==
LOC: RAD 08:15
PROVIDERS: PCP Family Medicine; Visit Provider Internal Medicine
DX: M25.579 Pain in unspecified ankle and joints of unspecified foot (principal); M19.072 Primary osteoarthritis, left ankle and foot; R60.0 Localized edema; R79.82 Elevated C-reactive protein (CRP); M47.814 Spondylosis without myelopathy or radiculopathy, thoracic region
CPT/HCPCS: 73721

== ENCOUNTER 2023-01-07 08:26 | Outpatient (CLI) | payer MEDICARE, OTHER, SELFPAY ==
--- NOTE | 2023-01-07 08:40 | FL_ITS ---
WS: [id number] Exam: FL barium swallow modifd [id number] Date/Time of Exam: 01/07/2023 8:43 AM Reason For Exam: Other dysphagia Fluoroscopy time: 2min 2.841048fhm minutes # of spot films: Modified barium swallow was performed in conjunction with the speech therapy service. Swallowing function at the level of the oropharynx was normal. The patient tolerated thin liquid, thi ck liquid, nectar consistency, pudding consistency and solid barium mixture foodstuffs without aspira tion or penetration. The patient ingested a barium tablet without complication. FL/FL barium swallow modifd [id number] IMPRESSION: 1. No sign of aspiration or penetration into the laryngeal inlet. A separate report and recommendations will follow from the speech therapy servi ce.
== END 2023-01-07 08:27 | disposition home or self-care (01) ==
LOC: RAD 08:31
PROVIDERS: PCP Family Medicine; Visit Provider Specialist
DX: R13.19 Other dysphagia (principal); E04.1 Nontoxic single thyroid nodule; K21.9 Gastro-esophageal reflux disease without esophagitis
CPT/HCPCS: 74230; 92611

== ENCOUNTER → 2023-01-11 13:02 | Outpatient (BNVA) | payer MEDICARE, OTHER, SELFPAY | PROVIDERS: PCP Family Medicine; Visit Provider Dermatology | DX: L40.8 Other psoriasis (principal); L57.0 Actinic keratosis; L81.4 Other melanin hyperpigmentation; L82.1 Other seborrheic keratosis; D18.01 Hemangioma of skin and subcutaneous tissue | CPT/HCPCS: 17000; 99213 ==

== ENCOUNTER 2023-01-17 08:28 | Outpatient (CLI) | payer MEDICARE, OTHER, SELFPAY ==
[2023-01-17 09:46] LABS: Free T4 Free Thyroxine 1.04 ng/dL (0.82-1.77); Thyroid Stimulating Hormone 0.94 uIU/mL (0.27-4.20)
== END 2023-01-17 08:29 | disposition home or self-care (01) ==
LOC: LAB 08:32
PROVIDERS: PCP Family Medicine; Visit Provider Specialist
DX: E04.1 Nontoxic single thyroid nodule (principal)
CPT/HCPCS: 36415; 84439; 84443

== ENCOUNTER → 2023-01-25 09:48 | Outpatient (BNVA) | payer MEDICARE, OTHER, SELFPAY | PROVIDERS: PCP Family Medicine; Visit Provider Internal Medicine | DX: I10 Essential (primary) hypertension (principal); I48.91 Unspecified atrial fibrillation | CPT/HCPCS: 80048; 83880 ==

== ENCOUNTER → 2023-02-09 12:35 | Outpatient (BNVA) | payer MEDICARE, OTHER, SELFPAY | PROVIDERS: PCP Family Medicine; Visit Provider Internal Medicine | DX: I48.91 Unspecified atrial fibrillation (principal); I73.9 Peripheral vascular disease, unspecified; Z87.891 Personal history of nicotine dependence; I12.9 Hypertensive chronic kidney disease with stage 1 through stage 4 chronic kidney disease, or unspecified chronic kidney disease; N18.9 Chronic kidney disease, unspecified; Z79.01 Long term (current) use of anticoagulants | CPT/HCPCS: 99214 ==

== ENCOUNTER → 2023-04-14 15:42 | Outpatient (BNVA) | payer MEDICARE, OTHER, SELFPAY | PROVIDERS: PCP Family Medicine; Visit Provider Podiatrist Foot & Ankle Surgery | DX: M95.8 Other specified acquired deformities of musculoskeletal system; M65.872 Other synovitis and tenosynovitis, left ankle and foot | CPT/HCPCS: 99213 ==

== ENCOUNTER → 2023-05-20 09:28 | Outpatient (BNVA) | payer MEDICARE, OTHER, SELFPAY | PROVIDERS: PCP Family Medicine; Visit Provider Internal Medicine | DX: R79.82 Elevated C-reactive protein (CRP) (principal); I73.00 Raynaud's syndrome without gangrene; M25.572 Pain in left ankle and joints of left foot; Z79.899 Other long term (current) drug therapy | CPT/HCPCS: 99214 ==

== ENCOUNTER → 2023-08-10 15:23 | Outpatient (BNVA) | payer MEDICARE, OTHER, SELFPAY | PROVIDERS: PCP Family Medicine; Visit Provider Internal Medicine | DX: I10 Essential (primary) hypertension (principal) | CPT/HCPCS: 36415; 80048; 99214 ==

== ENCOUNTER → 2024-01-12 10:26 | Outpatient (BNVA) | payer MEDICARE, OTHER, SELFPAY | PROVIDERS: PCP Family Medicine; Visit Provider Nurse Practitioner Family | DX: L40.8 Other psoriasis (principal); L82.1 Other seborrheic keratosis; D18.01 Hemangioma of skin and subcutaneous tissue; L82.0 Inflamed seborrheic keratosis; L91.8 Other hypertrophic disorders of the skin | CPT/HCPCS: 17110; 99213 ==

== ENCOUNTER → 2024-02-14 08:59 | Outpatient (BNVA) | payer MEDICARE, OTHER, SELFPAY | PROVIDERS: PCP Family Medicine; Visit Provider Nurse Practitioner Family | DX: I12.9 Hypertensive chronic kidney disease with stage 1 through stage 4 chronic kidney disease, or unspecified chronic kidney disease (principal); N18.9 Chronic kidney disease, unspecified; I48.0 Paroxysmal atrial fibrillation; I73.9 Peripheral vascular disease, unspecified; Z87.891 Personal history of nicotine dependence; Z79.01 Long term (current) use of anticoagulants | CPT/HCPCS: 99214 ==

== ENCOUNTER 2024-05-23 00:26 | Inpatient (IN) | payer MEDICARE, OTHER, SELFPAY ==
[2024-05-23] VITALS (45 sets, daily range): BP systolic 81–139; BP diastolic 50–99; PULSE 52–147; RESP 11–37; TEMP 36.1–36.7; O2SAT 12–99; BMI 33.5
--- NOTE | 2024-05-23 00:27 | ECG_ITS ---
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 Measurements Intervals [place] Rate: 107 P: 0 OR: 0 QRS: -8 QRSD: 90 T: 56 QT: 361 QTc: 482 Interpretive Statements ATRIAL FIBRILLATION WITH RAPID VENTRICULAR RESPONSE PROBABLE SEPTAL MYOCARDIAL INFARCTION , PROBABLY OLD [35 ms Q WAVE IN V1/V2] Compared to ECG 08/02/2022 06:57:05 No significant changes Electronically Signed On 05-23-2024 01:14:10 CDT by Sawyer Garvin M.D. [id number]
--- NOTE | 2024-05-23 00:28 | XRR_ITS ---
PROCEDURE INFORMATION: Exam: XR Chest Exam date and time: 05/23/2024 12:40 AM Age: 69 years old Clinical indication: Pain; Chest pressure; Additional info: Chest pain TECHNIQUE: Imaging protocol: Radiologic exam of the chest. Views: 1 view. COMPARISON: CR XR chest 1V portable [id number] 08/01/2022 11:42 PM FINDINGS: Lungs: Clear, symmetrically inflated lungs. Pleural spaces: No pleural effusion. No pneumothorax. Heart/Mediastinum: Cardiac silhouette is normal in size for technique. Diaphragm: Unchanged elevation of the left hemidiaphragm. Bones/joints: Age appropriate. XR/XR chest 1V portable [id number] IMPRESSION: No acute cardiopulmonary abnormality.
[2024-05-23 00:39] LABS: Basophils # 0.1 10^3/uL (0.0-0.1); Basophils % 0.6 %; Eosinophils # 0.3 10^3/uL (0.0-0.8); Eosinophils % 2.7 %; Hematocrit 44.5 % (36-47); Lymphocytes # 2.1 10^3/uL (0.8-4.8); Lymphocytes % 22.9 %; Mean Corpuscular Hemoglobin 28.5 pg (27-33); Mean Corpuscular Volume 86.4 fl (85-98); Mean Platelet Volume 10.8 fL (7.4-10.4); Monocytes # 1.1 10^3/uL (0.2-0.9); Monocytes % 11.9 %; Neutrophils # 5.73 10^3/uL (1.8-7.7); Neutrophils % 61.7 %; Nucleated Red Blood Cells % 0 %; Platelet Count 266 10^3/cmm (157-399); Red Blood Count 5.15 10^6/uL (3.85-5.65); Red Cell Distribution Width 13.8 % (12.1-15.1)
[2024-05-23 00:41] LABS: Bilirubin Urine Negative (Negative); Blood Urine Negative (Negative); Glucose Urine UA Negative (Normal); Ketones Urine Trace (Negative); Leukocyte Esterase Urine Negative (Negative); Nitrate Urine Negative (Negative); Protein Urine Negative (Negative); Specific Gravity, Urine 1.004 (1.005-1.030); Urine Appearance Clear (CLEAR); Urine Color Yellow (Yellow); Urobilinogen Urine 0.2 mg/dL (Negative); pH Urine 7.5 (5-7)
[2024-05-23 00:46] LABS: Bacteria Urine None Seen /hpf; Hyaline Casts Urine 0-4 /lpf; RBC Urine 0-2 /hpf (0-2); Squamous Epithelial Cell Urine 0-5 /hpf (0-5); WBC Urine 0-5 /hpf (0-5)
[2024-05-23 00:58] LABS: Troponin(5th) Baseline 9 ng/L (0-10)
--- NOTE | 2024-05-23 01:03 | W.ED.ARRPALP ---
HPI - Arrhythmia/Palpitations General: Chief Complaint: Arrhythmia/Palpitations Stated Complaint: afib Time Seen by Provider: 05/23/24 00:26 History of Present Illness: 69-year-old female with a history of atrial fibrillation on diltiazem and Eliquis who presents emergency room with palpitations and tachycardia. She had some discomfort into her left jaw. Said this started just couple of hours ago. EMS reports her heart rate was in the 140s to 170s on their arrival. She received some diltiazem. On arrival here heart rate is 129. 6 had an episode of bradycardia a few days back that had finally resolved. She said she was in the 40s for over an hour. She has an appointment with Dr. Grimaldo tomorrow morning but then today she became tachycardic and had to come to the emergency room. No recent fevers. No malaise. No abdominal pain. She says she is been feeling fine otherwise. Related Data Home Medications Medication Instructions Recorded Confirmed turmeric root extract 500 mg 500 mg PO DAILY 09/12/19 02/14/24 capsule magnesium oxide 250 mg PO DAILY 12/17/19 02/14/24 multivitamin 1 tab PO DAILY 12/17/19 02/14/24 albuterol sulfate 2.5 mg/3 mL 2.5 mg inhalation Q6H PRN 08/02/22 02/14/24 (0.083 %) solution for nebulization Shortness Of Breath cetirizine 10 mg capsule (Zyrtec) 10 mg PO DAILY PRN Allergy Symptoms 08/17/22 02/14/24 cholecalciferol (vitamin D3) 125 125 mcg PO DAILY 11/08/22 02/14/24 mcg (5,000 unit) capsule fluticasone propionate 50 1 spray intranasal DAILY 11/08/22 02/14/24 mcg/actuation nasal spray,suspension (Flonase Allergy Relief) famotidine 20 mg tablet (Pepcid) 20 mg PO BEDTIME 02/09/23 02/14/24 Previous Rx's Medication Instructions Recorded mupirocin 2 % topical ointment 1 applic topical BID 2 weeks #22 06/08/21 grams apixaban 5 mg tablet 5 mg PO BID #180 tabs 07/13/23 diltiazem HCl 180 mg 180 mg PO QAM #90 caps 07/25/23 capsule,extended release 24 hr (Cardizem CD) furosemide 20 mg tablet 20 mg PO DAILY PRN edema #90 tabs 02/14/24 hydrochlorothiazide 50 mg tablet 50 mg PO DAILY #90 tabs 02/14/24 potassium chloride 20 mEq 20 meq PO DAILY #180 tabs 02/14/24 tablet,extended release(part/cryst) (Klor-Con M) Allergies Allergy/AdvReac Type Severity Reaction Status Date / Time Penicillins Allergy Intermediate rash, hives Verified 05/23/24 00:54 sulfamethoxazole Allergy Mild nausea Verified 05/23/24 00:54 [From Bactrim] trimethoprim [From Bactrim] Allergy Mild nausea Verified 05/23/24 00:54 ciprofloxacin [From Cipro] Allergy Unknown Unknown Verified 05/23/24 00:54 clarithromycin [From Biaxin] Allergy Unknown Unknown Verified 05/23/24 00:54 metronidazole [From Flagyl] Allergy Unknown Unknown Verified 05/23/24 00:54 Review of Systems Narrative: Constitutional symptoms: Negative except as documented in HPI. Skin symptoms: Negative except as documented in HPI. Eye symptoms: Negative except as documented in HPI. ENMT symptoms: Negative except as documented in HPI. Respiratory symptoms: Negative except as documented in HPI. Cardiovascular symptoms: Negative except as documented in HPI. Gastrointestinal symptoms: Negative except as documented in HPI. Genitourinary symptoms: Negative except as documented in HPI. Musculoskeletal symptoms: Negative except as documented in HPI. Neurologic symptoms: Negative except as documented in HPI. Psychiatric symptoms: Negative except as documented in HPI. Endocrine symptoms: Negative except as documented in HPI. [facility] ED PFSH: Medical History (Updated 05/23/24 @ 02:32 by Julia Zamora MD) PAD (peripheral artery disease) Atrial fibrillation CRP elevated Raynauds disease CKD (chronic kidney disease) Cervicalgia Inflammatory arthritis Back pain with history of spinal surgery Raynaud phenomenon Essential hypertension Varicose veins of both lower extremities Arthritis of carpometacarpal (CMC) joint of right thumb DJD (degenerative joint disease) of thoracic spine Osteoarthritis Surgical History History of appendectomy History of cholecystectomy Family History Grandmother Diabetes Father Family history of CABG Denies family history of Rheumatoid arthritis Lupus Social History Smoking and tobacco/nicotine status: former use of tobacco/nicotine Alcohol intake: never Substance/Drug Use: never Physical Exam Narrative: EXAM NARRATIVE: General: Alert, no acute distress. Skin: Warm, dry. Head: Normocephalic, atraumatic. Neck: Supple, trachea midline. Eye: Extraocular movements are intact. Ears, nose, mouth and throat: mucosa moist. Cardiovascular: Irregularly irregular, tachycardic, Normal peripheral perfusion. Respiratory: Lungs are clear to auscultation, respirations are non-labored, breath sounds are equal, Symmetrical chest wall expansion. Gastrointestinal: Soft, Nontender, Non distended Musculoskeletal: Normal ROM, no deformity. Neurological: Alert and oriented, No focal neurological deficit observed. Psychiatric: Cooperative, appropriate mood & affect. Course Vital Signs: Vital signs: Vital Signs Temperature 98.1 F 05/23/24 00:42 Pulse Rate 95 05/23/24 02:30 Respiratory Rate 15 05/23/24 02:30 Blood Pressure 108/67 05/23/24 02:30 Pulse Oximetry 12 L 05/23/24 02:30 Oxygen Delivery Me thod Room Air 05/23/24 02:15 MDM - Arrhythmia/Palpitations Medical Decision Making Medical decision making: Differential diagnosis including but not limited to and based on the above HPI, review of systems and physical exam: for patient with palpitations: atrial fibrillation with rapid ventricular response. ventricular tachycardia. sinus tachycardia. PVCs. also concern for underlying issues causing tachycardia. Infection, electrolyte abnormalities and thyroid issues Orders placed to evaluate differential diagnosis based on the above differential, HPI and physical exam EKG: Time 0027. Rate 107. Atrial fibrillation with rapid ventricular response, No ST-T changes, no ectopy, This was reviewed and interpreted by myself the ER physician at 0030 Chest x-ray: No acute process. No infiltrate. No pneumothorax. This was reviewed and interpreted by myself the ER physician. Lab Review: Laboratory results were reviewed and interpreted by myself the emergency room physician. No leukocytosis. No anemia. No renal failure. Urinalysis is clear I reviewed the patient's medical record. Reexamination: Patient remained stable. No increased work of breathing. No altered mental status. No focal motor deficits. Heart rate on a diltiazem drip after bolus is now ranging between the 80s and 110. Consultation: I spoke with Dr. Gonzalez who is on-call for the hospitalist group and she is admitting the patient to cardiac stepdown Assessment and plan: A-fib with RVR ?IV diltiazem bolus and diltiazem drip initiated -I discussed the patient with the hospitalist on-call who is admitting the patient. - Discussed findings and plan with patient. Answered any questions. - All laboratory values were reviewed and interpreted personally by myself, the ER physician - All imaging was reviewed and interpreted personally by myself, the ER physician. - Evaluation and treatment of this problem were appropriate in the emergency setting Lab Data 05/23/24 00:01 05/23/24 01:44 Laboratory Results WBC 9.30 10^3/uL (3.29-11.43) 05/23/24 00:01 RBC 5.15 10^6/uL (3.85-5.65) 05/23/24 00:01 Hgb 14.70 g/dL (11.27-16.99) 05/23/24 00:01 Hct 44.5 % (36-47) 05/23/24 00:01 MCV 86.4 fl (85-98) 05/23/24 00:01 MCH 28.5 pg (27-33) 05/23/24 00:01 MCHC 33.0 g/dL (30-55) 05/23/24 00:01 RDW 13.8 % (12.1-15.1) 05/23/24 00:01 Plt Count 266 10^3/cmm (157-399) 05/23/24 00:01 MPV 10.8 fL (7.4-10.4) H 05/23/24 00:01 Neut % (Auto) 61.7 % 05/23/24 00:01 Lymph % (Auto) 22.9 % 05/23/24 00:01 [place] % (Auto) 11.9 % 05/23/24 00:01 Eos % (Auto) 2.7 % 05/23/24 00:01 Baso % (Auto) 0.6 % 05/23/24 00:01 Neut # (Auto) 5.73 10^3/uL (1.8-7.7) 05/23/24 00:01 Lymph # (Auto) 2.1 10^3/uL (0.8-4.8) 05/23/24 00:01 [place] # (Auto) 1.1 10^3/uL (0.2-0.9) H 05/23/24 00:01 Eos # (Auto) 0.3 10^3/uL (0.0-0.8) 05/23/24 00:01 Baso # (Auto) 0.1 10^3/uL (0.0-0.1) 05/23/24 00:01 Nucleated RBC % (auto) 0 % 05/23/24 00:01 Nucleated RBCs # 0.0 /100WBC 05/23/24 00:01 Sodium 140 mmol/L (136-145) 05/23/24 01:44 Potassium Cancelled 05/23/24 01:14 Chloride 101 mmol/L (98-107) 05/23/24 01:44 Carbon Dioxide 27 mmol/L (22-29) 05/23/24 01:44 Anion Gap 15.2 (5-19) 05/23/24 01:44 BUN 15 mg/dL (8-23) 05/23/24 01:44 Creatinine 0.8 mg/dL (0.5-0.9) 05/23/24 01:44 GFR Calculation Not Reportable 05/23/24 01:44 Glucose Cancelled 05/23/24 01:14 Calculated Osmolality 290 mOsm/kg (285-295) 05/23/24 01:44 Calcium 9.1 mg/dL (8.5-10.5) 05/23/24 01:44 Magnesium 2.2 mg/dL (1.7-2.3) 05/23/24 01:44 Total Bilirubin 0.3 mg/dL (0.15-1.2) 05/23/24 01:44 AST 17 U/L (0-32) 05/23/24 01:44 ALT 19 U/L (0-33) 05/23/24 01:44 Alkaline Phosphatase Cancelled 05/23/24 01:14 Troponin T Baseline 9 ng/L (0-10) 05/23/24 00:01 Troponin T 120 Minute 13.01 ng/L (0-10) H 05/23/24 01:44 Delta Troponin T 4.01 ABS# (0-10) 05/23/24 01:44 Total Protein 7.4 g/dL (6.6-8.7) 05/23/24 01:44 Albumin 4.3 g/dL (3.5-5.2) 05/23/24 01:44 Globulin 3.2 g/dL (1.3-4.6) 05/23/24 01:44 TSH 1.66 uIU/mL (0.27-4.20) 05/23/24 01:44 Urine Color Yellow (Yellow) 05/23/24 00:01 Urine Appearance Clear (CLEAR) 05/23/24 00:01 Urine pH 7.5 (5-7) 05/23/24 00:01 Ur Specific [place] 1.004 (1.005-1.030) L 05/23/24 00:01 Urine Protein Negative (Negative) 05/23/24 00:01 Urine Glucose (UA) Negative (Normal) 05/23/24 00:01 Urine Ketones Trace (Negative) 05/23/24 00:01 Urine Blood Negative (Negative) 05/23/24 00:01 Urine Nitrate Negative (Negative) 05/23/24 00:01 Urine Bilirubin Negative (Negative) 05/23/24 00:01 Urine Urobilinogen 0.2 mg/dL (Negative) 05/23/24 00:01 Ur Leukocyte Esterase Negative (Negative) 05/23/24 00:01 Urine RBC 0-2 /hpf (0-2) 05/23/24 00:01 Urine WBC 0-5 /hpf (0-5) 05/23/24 00:01 Ur Squamous Epith Cells 0-5 /hpf (0-5) 05/23/24 00:01 Amorphous Sediment Not Reportable 05/23/24 00:01 Urine Bacteria None seen /hpf (NONE) 05/23/24 00:01 Hyaline Casts 0-4 /lpf H 05/23/24 00:01 All radiology interpretation(s) finalized by discharge Discharge Plan Discharge Patient Disposition: Admitted As Inpatient Clinical Impression: Atrial fibrillation with rapid ventricular response Condition: Stable Coding Level of Care Code ED Experimental Worker for Preet Fernández
[2024-05-23] MEDS: dilTIAZem 5 mg/mL SDV 5 mL 20 MG IVP (01:32)
[2024-05-23] MEDS: dilTIAZem 100 MG in sodium chloride 0.9% (add-van) 100 ML IV ×2 (01:34→08:48)
[2024-05-23 02:10] LABS: Alanine Aminotransferase 19 U/L (0-33)
[2024-05-23 02:11] LABS: Troponin 5 2HR 13.01 ng/L (0-10); Troponin 5 2HR Delta 4.01 ABS# (0-10)
[2024-05-23 02:25] LABS: Alkaline Phosphatase 128 U/L (35-105); Anion Gap 15.2 (5-19); Aspartate Amino Transferase 17 U/L (0-32); Blood Urea Nitrogen 15 mg/dL (8-23); Calcium 9.1 mg/dL (8.5-10.5); Carbon Dioxide 27 mmol/L (22-29); Creatinine Clr Calc Pharmacy 69.4436; Globulin 3.2 g/dL (1.3-4.6); Glucose 118 mg/dL (65-115); Magnesium 2.2 mg/dL (1.7-2.3); Osmolality Calculated 290 mOsm/kg (285-295); Potassium 3.2 mmol/L (3.5-5.1); Thyroid Stimulating Hormone 1.66 uIU/mL (0.27-4.20); Total Bilirubin 0.3 mg/dL (0.15-1.2); Total Protein 7.4 g/dL (6.6-8.7)
--- NOTE | 2024-05-23 02:28 | ECG_ITS ---
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 Measurements Intervals [place] Rate: 94 P: 0 MA: 0 QRS: -4 QRSD: 103 T: 38 QT: 396 QTc: 496 Interpretive Statements ATRIAL FIBRILLATION LOW QRS VOLTAGE IN PRECORDIAL LEADS [QRS DEFLECTION < 1.0 mV IN CHEST LEADS] PATTERN CONSISTENT WITH PULMONARY DISEASE INCOMPLETE RIGHT BUNDLE BRANCH BLOCK [90+ ms QRS DURATION, TERMINAL R IN V1/V2, 40+ ms S IN I/aVL/V4/V5/V6] SEPTAL MYOCARDIAL INFARCTION , PROBABLY OLD [40+ ms Q WAVE IN V1/V2] Compared to ECG 05/23/2024 00:27:38 Low QRS voltage now present Incomplete right bundle-branch block now present Myocardial infarct finding still present Electronically Signed On 05-24-2024 01:03:42 CDT by Sawyer Garvin M.D. [id number]
[2024-05-23 02:41] LABS: Albumin Level 4.2 g/dL (3.5-5.2); Chloride 100 mmol/L (98-107); Sodium 139 mmol/L (136-145)
--- NOTE | 2024-05-23 05:15 | P.HP_ITS ---
Providers/Chief Complaint 2 Admitting Physician: Cassy Gonzalez MD Primary Care Provider: Grady Felton Chief Complaint: afib History of Present Illness Nanette Gao is a 69 year old female with past medical history of degenerative joint disease, essential hypertension, osteoarthritis, Raynaud's disease, varicose veins of bilateral lower extremities, A fib on Cardizem and Eliquis as outpatient. She presents to the emergency room today complaining of palpitations and left-sided chest discomfort that started at around 10 PM. No obvious trigger. She noted her heart rate to be very high and presented into the emergency room. Here she was found to be in A-fib with RVR with heart rate running between 1 40-1 50. She has been started on a Cardizem infusion after receiving a 20 mg IV push. She has not had any recent changes in her Cardizem dosing. On she noticed that she was feeling slightly dizzy and took her heart rate at home which was ranging between 38-40. She did not change her Cardizem dose at the time and it appears the bradycardia resolved. She was supposed to follow-up with Dr. Ramsey today, however presented to the emergency room for A-fib as mentioned above. There has been no recent change in any other medication dosing About 3 weeks ago she suffered from acute sinusitis and was taking oral decongestants including Zyrtec and Sudafed. She took these medications 2 weeks ago and has not taken any recently. Sinusitis symptoms are currently improving. Review of Systems 2 General: Reports: 10 or more systems reviewed and unremarkable except in HPI and below Const: Denies: fever(s), chills or body aches Eyes: Denies: change in vision, blurry vision or photophobia ENMT: Reports: hoarseness; Denies: throat pain, enlarged tonsils, odynophagia or nasal congestion Card: Denies: chest pain, palpitations, irregular heart rhythm, edema, swelling of feet/ankles, lightheadedness, pre-syncope, dyspnea on exertion or orthopnea Resp: Denies: dyspnea, productive cough, non-productive cough, wheezing, stridor, pain on inspiration, change in phlegm color, hemoptysis or chest congestion GI: Denies: abdominal pain, nausea, vomiting, hematemesis, coffee ground emesis, dysphagia, heartburn, diarrhea, constipation, GI cramping, change in stool character, hematochezia or melena : Denies: flank pain, difficulty voiding, dysuria, urinary frequency, urinary urgency, urinary hesitancy or hematuria Musc: Denies: neck pain, back pain, extremity pain, joint swelling, joint warmth or deformity Neuro: Denies: headache(s), numbness in extremities, weakness in extremities, sensory changes, difficulty walking, frequent falls, dizziness, vertigo, behavioral changes, Slurred speech present or seizure-like activity Psych: Denies: anxiety, depression, suicidal ideation or homicidal ideation Endo: Denies: polyuria, polydipsia, tired all the time, cold intolerance or hot flashes Itz/Lymph: Denies: easy bruising or easy bleeding Medications/Allergies Home Medications Medication Instructions Recorded Confirmed Last Taken Type turmeric root extract 500 mg 500 mg PO DAILY 09/12/19 02/14/24 11/11/22 08:00 History capsule magnesium oxide 250 mg PO DAILY 12/17/19 02/14/24 11/11/22 08:00 History multivitamin 1 tab PO DAILY 12/17/19 02/14/24 11/11/22 08:00 History mupirocin 2 % topical ointment 1 applic topical BID 2 weeks #22 06/08/21 02/14/24 11/11/22 08:00 Rx grams albuterol sulfate 2.5 mg/3 mL 2.5 mg inhalation Q6H PRN 08/02/22 02/14/24 Unknown History (0.083 %) solution for nebulization Shortness Of Breath cetirizine 10 mg capsule (Zyrtec) 10 mg PO DAILY PRN Allergy Symptoms 08/17/22 02/14/24 11/11/22 08:00 History cholecalciferol (vitamin D3) 125 125 mcg PO DAILY 11/08/22 02/14/24 11/11/22 08:00 History mcg (5,000 unit) capsule fluticasone propionate 50 1 spray intranasal DAILY 11/08/22 02/14/24 11/11/22 08:00 History mcg/actuation nasal spray,suspension (Flonase Allergy Relief) famotidine 20 mg tablet (Pepcid) 20 mg PO BEDTIME 02/09/23 02/14/24 Unknown History apixaban 5 mg tablet 5 mg PO BID #180 tabs 07/13/23 02/14/24 Unknown Rx diltiazem HCl 180 mg 180 mg PO QAM #90 caps 07/25/23 02/14/24 Unknown Rx capsule,extended release 24 hr (Cardizem CD) furosemide 20 mg tablet 20 mg PO DAILY PRN edema #90 tabs 02/14/24 02/14/24 Unknown Rx hydrochlorothiazide 50 mg tablet 50 mg PO DAILY #90 tabs 02/14/24 02/14/24 Unknown Rx potassium chloride 20 mEq 20 meq PO BID 05/23/24 Unknown History tablet,extended release(part/cryst) (Klor-Con M) Allergies Allergy/AdvReac Type Severity Reaction Status Date / Time Penicillins Allergy Intermediate rash, hives Verified 05/23/24 00:54 sulfamethoxazole Allergy Mild nausea Verified 05/23/24 00:54 [From Bactrim] trimethoprim [From Bactrim] Allergy Mild nausea Verified 05/23/24 00:54 ciprofloxacin [From Cipro] Allergy Unknown Unknown Verified 05/23/24 00:54 clarithromycin [From Biaxin] Allergy Unknown Unknown Verified 05/23/24 00:54 metronidazole [From Flagyl] Allergy Unknown Unknown Verified 05/23/24 00:54 PFSH Acute 2 PFSH: Medical History PAD (peripheral artery disease) Atrial fibrillation CRP elevated Raynauds disease CKD (chronic kidney disease) Cervicalgia Inflammatory arthritis Back pain with history of spinal surgery Raynaud phenomenon Essential hypertension Varicose veins of both lower extremities Arthritis of carpometacarpal (CMC) joint of right thumb DJD (degenerative joint disease) of thoracic spine Osteoarthritis Surgical History History of appendectomy History of cholecystectomy Family History Grandmother Diabetes Father Family history of CABG Denies family history of Rheumatoid arthritis Lupus Social History Smoking and tobacco/nicotine status: former use of tobacco/nicotine Alcohol intake: never Substance/Drug Use: never Vitals/I&O/Wt Last Vital Signs Temp 98.1 F 05/23/24 00:42 Pulse 95 05/23/24 04:09 Resp 17 05/23/24 04:09 BP 109/65 05/23/24 04:09 Pulse Ox 95 05/23/24 04:09 O2 Del Method Room Air 05/23/24 04:07 05/22/24 05/22/24 05/23/24 14:59 22:59 06:59 Intake Total 7.458 / 7.458 Balance 7.458 / 7.458 Weight last 48 hrs Weight 88.5 kg Weight 88.451 kg Physical Exam 2 Narrative: General: No acute distress, AO x3 HEENT: PERRLA, pupils bilaterally equal and reactive, pallors not present Chest: Normal vesicular breath sounds, no added sounds, equal good air entry bilaterally CVS: S1-S2 regular, no murmurs, no tachycardia, no gallops, no rubs Abdomen: Soft, nontender, no organomegaly, bowel sounds present Neuro: No focal deficits, no facial deformity, AO x3, power 5/5 in all limbs Extremities: no edema, clubbing or cyanosis Data 05/23/24 00:01 05/23/24 01:44 A&P Assessment and plan (1) Atrial fibrillation with rapid ventricular response: 69-year-old lady with a known history of A-fib on anticoagulation chronically presenting to the emergency room tonight with A-fib with RVR. Received 20 mg IV push of Cardizem in the emergency room and has now been placed on a drip. At the time of this assessment she is running the drip at 10 mg/h Patient has reported few episodes of bradycardia at home recently, we will closely monitor her on CSU and telemetry to assess for any other wide variations in heart rate. Continue anticoagulation with Eliquis 5 mg twice daily Overlap with oral Cardizem in an attempt to titrate off the drip. Complained of chest discomfort at the time of palpitations. Baseline troponin currently at 13. No acute ST-T wave changes, less likely ACS. Will check troponin series at 2 hours and then again at 6 hours. (2) Hypokalemia: Hypokalemia with potassium currently at 3.2. Replete with 40 mEq oral potassium. Goal to keep potassium level at 4 Plan DVT prophylaxis: Currently on Eliquis Full code Attestations 2 Medical Necessity Statement*: Greater than 2 midnight stay is anticipated Coding Level of Care Code Acute Code for Chg Fwd Moderate MDM includes number and complexity of problems actively addressed during encounter, amount and/or complexity of data reviewed/ordered and described risk of complication, morbidity or mortality of management as documented Diagnoses Atrial fibrillation with rapid ventricular response I48.91 Hypokalemia E87.6
[2024-05-23] MEDS: dilTIAZem 30 mg Tablet PO (05:40)
[2024-05-23] MEDS: potassium chloride ER 20 mEq Tablet 40 MEQ PO ×2 (05:40→09:52)
--- NOTE | 2024-05-23 06:28 | ECG_ITS ---
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 Measurements Intervals [place] Rate: 78 P: 60 [place]: 190 QRS: 44 QRSD: 151 T: 118 QT: 437 QTc: 499 Interpretive Statements SINUS RHYTHM LEFT BUNDLE BRANCH BLOCK [120+ ms QRS DURATION, 80+ ms Q/S IN V1/V2, 85+ ms R IN I/aVL/V5/V6] Compared to ECG 05/23/2024 02:38:45 Left bundle-branch block now present Atrial fibrillation no longer present Incomplete right bundle-branch block no longer present Myocardial infarct finding no longer present Electronically Signed On 05-24-2024 01:03:34 CDT by Sawyer Garvin M.D. [id number]
[2024-05-23 06:30] LABS: Troponin 5 6HR 21.13 ng/L (0-10)
[2024-05-23 06:42] LABS: Troponin 5 6HR Delta 12.13 ng/L (0-12)
[2024-05-23] MEDS: hydroCHLOROthiazide 25 mg Tablet 50 MG PO (08:56)
[2024-05-23] MEDS: pantoprazole DR 40 mg Tablet PO (08:56)
[2024-05-23] MEDS: apixaban 5 mg Tablet PO (08:56)
--- NOTE | 2024-05-23 09:19 | USCV_ITS ---
Nanette Gao Age: 69 Gender: F : 1955 Exam Date: 05/23/2024 13:46 Ordering Phys: Braden Cruz MD Technologist: CT [place] [facility] [place]: afib BP: 113 / 59 HR: 55 Rhythm: Sinus Technical Quality: Adequate MEASUREMENTS (Male / Female) Normal Values 2D ECHO LVOT Diameter 2.1 cm LV Ejection Fraction MOD 4C 72.7 % LV Ejection Fraction MOD 2C 60.6 % LV Ejection Fraction 2C AL 61.6 % LA Diameter 3.9 cm RA Systolic Volume 4C AL 24.4 ml RA Systolic Volume 4C MOD 23.5 ml LA Sys Volume AL 48.8 cm cubed LA Sys Volume Index AL 23.8 cm cubed/m squared Aorta at Sinotubular Diameter 2.1 cm M-MODE LA Ao Ratio MM 1.5 AV Cusp Separation MM 2.0 cm DOPPLER AV Peak Velocity 101.0 cm/s LVOT Peak Velocity 108.0 cm/s AV Area Cont Eq vti 4.3 cm squared AV Area Cont Eq pk 3.6 cm squared MV Peak Velocity 85.0 cm/s MV Area PHT 3.2 cm squared Mitral E to A Ratio 0.9 TV Peak Velocity 115.5 cm/s TR Peak Velocity 117.0 cm/s TR Peak Gradient 5.5 mmHg TV Peak E Velocity 72.0 cm/s Right Atrial Pressure 3.0 mmHg Pulmonary Artery Systolic Pressu 8.5 mmHg PV Peak Velocity 101.0 cm/s FINDINGS Left Ventricle Left ventricle is normal in size. LV systolic function is normal with EF 55 to 60%. No regional wall motion abnormalities are seen. Grade 1 diastolic dysfunction Right Ventricle Normal in size and function Right Atrium Normal in size Left Atrium Normal in size Mitral Valve Structurally normal mitral valve. Trace mitral regurgitation Aortic Valve Structurally normal aortic valve. No significant stenosis or regurgitation. Tricuspid Valve Mild tricuspid regurgitation. Insufficient TR jet to calculate RVSP. Pulmonic Valve Not well visualized. Pericardium Normal Aorta Normal in size IVC Appears to be normal CONCLUSIONS LV systolic function is normal with EF of 55 to 60%. Grade 1 diastolic dysfunction Trace mitral regurgitation Mild tricuspid regurgitation Compared to prior echo from 2021, no significant changes are seen Jakc Grimaldo MD (Electronically Signed) Final Date: 24 May 2024 10:52 S
[2024-05-23] MEDS: dilTIAZem 30 mg Tablet 60 MG PO (09:52)
[2024-05-23 09:56] LABS: Estmated Average Glucose 126
[2024-05-23 10:07] LABS: D Dimer 0.51 ug/mLFEU (0-0.59)
[2024-05-23 10:14] LABS: Iron 34 ug/dL (37-145); Percent Saturation 12.3 % (20-50); Total Iron Binding Capacity 276 mcg/dl; Unsaturated Iron Binding 242 ug/dL (112-347)
[2024-05-23 11:43] LABS: Vitamin B12 > 2000 pg/mL (232-1245)
--- NOTE | 2024-05-23 12:24 | P.DS_ITS ---
Discharge Providers Date of Admission: 05/23/24 03:43 Date of Discharge: May 23, 2024 Attending Provider at Admission: Cassy Gonzalez MD Attending Provider at Discharge: Braden Cruz MD Primary Care Provider: Grady Felton Diagnoses at Discharge Discharge Diagnosis (1) Atrial fibrillation with rapid ventricular response: Status: Acute (2) Hypokalemia: Status: Acute Reason for Visit Reason for Visit: afib Brief History: Nanette Gao is a 69 year old female with past medical history of degenerative joint disease, essential hypertension, osteoarthritis, Raynaud's disease, varicose veins of bilateral lower extremities, A fib on Cardizem and Eliquis as outpatient. She presents to the emergency room today complaining of palpitations and left-sided chest discomfort that started at around 10 PM. No obvious trigger. She noted her heart rate to be very high and presented into the emergency room. Here she was found to be in A-fib with RVR with heart rate running between 1 40-1 50. She has been started on a Cardizem infusion after receiving a 20 mg IV push. She has not had any recent changes in her Cardizem dosing. On she noticed that she was feeling slightly dizzy and took her heart rate at home which was ranging between 38-40. She did not change her Cardizem dose at the time and it appears the bradycardia resolved. She was supposed to follow-up with Dr. Grimaldo today, however presented to the emergency room for A-fib as mentioned above. There has been no recent change in any other medication dosing About 3 weeks ago she suffered from acute sinusitis and was taking oral deconges tants including Zyrtec and Sudafed. She took these medications 2 weeks ago and has not taken any recently. Sinusitis symptoms are currently improving. Hospital Course Hospital Course Patient was admitted to the hospital further evaluation and management of atrial fibrillation with rapid ventricular response. She was started on Cardizem drip. While being on Cardizem drip oral Cardizem was initiated. Once the heart rate was improved she denied any symptoms or nausea or vomiting, headache or chest pain. While being on Cardizem drip she converted back to normal sinus rhythm. Echocardiogram was done and the results are still awaited. She has been discharged in hemodynamically stable condition on oral Cardizem as before. She is also being discharged on Cardizem 30 mg as needed for heart rate of more than 110 bpm. Discharge instructions were discussed in detail with the patient and she verbalized understanding. She is advised to follow-up with a primary care provider for possible further evaluation for sleep apnea. Physical Exam Narrative: General: No acute distress, AO x3 HEENT: PERRLA, pupils bilaterally equal and reactive, pallors not present Chest: Normal vesicular breath sounds, no added sounds, equal good air entry bilaterally CVS: S1-S2 regular, no murmurs, no tachycardia, no gallops, no rubs Abdomen: Soft, nontender, no organomegaly, bowel sounds present Neuro: No focal deficits, no facial deformity, AO x3, power 5/5 in all limbs Extremities: no edema, clubbing or cyanosis Discharge Data Studies Completed and Pending Completed Studies During Hospitalization Category Date Time Status XR chest 1V portable [id number] Stat Exams 05/23/24 00:28 Completed Pending at discharge Category Date Time Status Complete Blood Count w/Auto AM LABS Lab 05/24/24 04:00 Ordered Comprehensive Metabolic Panel AM LABS Lab 05/24/24 04:00 Ordered Folate Level AM LABS Lab 05/24/24 04:00 Ordered MAG [Magnesium] AM LABS Lab 05/24/24 04:00 Ordered MAG [Magnesium] AM LABS Lab 05/25/24 04:00 Ordered MAG [Magnesium] AM LABS Lab 05/26/24 04:00 Ordered Magnesium AM LABS Lab 05/24/24 04:00 Ordered CV. echo complete* [id number] Routine Ultrasound 05/23/24 09:19 Ordered Radiology Impressions Chest X-Ray 05/23/24 00:28 IMPRESSION: No acute cardiopulmonary abnormality. Laboratory Results WBC 9.30 10^3/uL (3.29-11.43) 05/23/24 00:01 RBC 5.15 10^6/uL (3.85-5.65) 05/23/24 00:01 Hgb 14.70 g/dL (11.27-16.99) 05/23/24 00:01 Hct 44.5 % (36-47) 05/23/24 00:01 MCV 86.4 fl (85-98) 05/23/24 00:01 MCH 28.5 pg (27-33) 05/23/24 00:01 MCHC 33.0 g/dL (30-55) 05/23/24 00:01 RDW 13.8 % (12.1-15.1) 05/23/24 00:01 Plt Count 266 10^3/cmm (157-399) 05/23/24 00:01 MPV 10.8 fL (7.4-10.4) H 05/23/24 00:01 Neut % (Auto) 61.7 % 05/23/24 00:01 Lymph % (Auto) 22.9 % 05/23/24 00:01 [place] % (Auto) 11.9 % 05/23/24 00:01 Eos % (Auto) 2.7 % 05/23/24 00:01 Baso % (Auto) 0.6 % 05/23/24 00:01 Neut # (Auto) 5.73 10^3/uL (1.8-7.7) 05/23/24 00:01 Lymph # (Auto) 2.1 10^3/uL (0.8-4.8) 05/23/24 00:01 [place] # (Auto) 1.1 10^3/uL (0.2-0.9) H 05/23/24 00:01 Eos # (Auto) 0.3 10^3/uL (0.0-0.8) 05/23/24 00:01 Baso # (Auto) 0.1 10^3/uL (0.0-0.1) 05/23/24 00:01 Nucleated RBC % (auto) 0 % 05/23/24 00:01 Nucleated RBCs # 0.0 /100WBC 05/23/24 00:01 D-Dimer 0.51 ug/mLFEU (0-0.59) 05/23/24 01:14 Sodium 139 mmol/L (136-145) 05/23/24 01:44 Potassium 3.2 mmol/L (3.5-5.1) L 05/23/24 01:44 Chloride 100 mmol/L (98-107) 05/23/24 01:44 Carbon Dioxide 27 mmol/L (22-29) 05/23/24 01:44 Anion Gap 15.2 (5-19) 05/23/24 01:44 BUN 15 mg/dL (8-23) 05/23/24 01:44 Creatinine 0.8 mg/dL (0.5-0.9) 05/23/24 01:44 GFR Calculation Not Reportable 05/23/24 01:44 Glucose 118 mg/dL (65-115) H 05/23/24 01:44 Estimat Average Glucose 126 05/23/24 00:01 Hemoglobin A1c 6.0 % (4.0-6.0) 05/23/24 00:01 Calculated Osmolality 290 mOsm/kg (285-295) 05/23/24 01:44 Calcium 9.1 mg/dL (8.5-10.5) 05/23/24 01:44 Magnesium 2.2 mg/dL (1.7-2.3) 05/23/24 01:44 Iron 34 ug/dL (37-145) L 05/23/24 01:44 TIBC 276 mcg/dl 05/23/24 01:44 % Saturation 12.3 % (20-50) L 05/23/24 01:44 Unsat Iron Binding 242 ug/dL (112-347) 05/23/24 01:44 Total Bilirubin 0.3 mg/dL (0.15-1.2) 05/23/24 01:44 AST 17 U/L (0-32) 05/23/24 01:44 ALT 19 U/L (0-33) 05/23/24 01:44 Alkaline Phosphatase 128 U/L (35-105) H 05/23/24 01:44 Troponin T Baseline 9 ng/L (0-10) 05/23/24 00:01 Troponin T 120 Minute 13.01 ng/L (0-10) H 05/23/24 01:44 Delta Troponin T 4.01 ABS# (0-10) 05/23/24 01:44 Troponin T Hi Sens 6Hr 21.13 ng/L (0-10) H 05/23/24 06:03 Troponin T Hi Sens 6Hr Delta 12.13 ng/L (0-12) H* 05/23/24 06:03 Total Protein 7.4 g/dL (6.6-8.7) 05/23/24 01:44 Albumin 4.2 g/dL (3.5-5.2) 05/23/24 01:44 Globulin 3.2 g/dL (1.3-4.6) 05/23/24 01:44 Vitamin B12 > 2000 pg/mL (232-1245) H 05/23/24 01:44 TSH 1.66 uIU/mL (0.27-4.20) 05/23/24 01:44 Urine Color Yellow (Yellow) 05/23/24 00:01 Urine Appearance Clear (CLEAR) 05/23/24 00:01 Urine pH 7.5 (5-7) 05/23/24 00:01 Ur Specific [place] 1.004 (1.005-1.030) L 05/23/24 00:01 Urine Protein Negative (Negative) 05/23/24 00:01 Urine Glucose (UA) Negative (Normal) 05/23/24 00:01 Urine Ketones Trace (Negative) 05/23/24 00:01 Urine Blood Negative (Negative) 05/23/24 00:01 Urine Nitrate Negative (Negative) 05/23/24 00:01 Urine Bilirubin Negative (Negative) 05/23/24 00:01 Urine Urobilinogen 0.2 mg/dL (Negative) 05/23/24 00:01 Ur Leukocyte Esterase Negative (Negative) 05/23/24 00:01 Urine RBC 0-2 /hpf (0-2) 05/23/24 00:01 Urine WBC 0-5 /hpf (0-5) 05/23/24 00:01 Ur Squamous Epith Cells 0-5 /hpf (0-5) 05/23/24 00:01 Amorphous Sediment Not Reportable 05/23/24 00:01 Urine Bacteria None seen /hpf (NONE) 05/23/24 00:01 Hyaline Casts 0-4 /lpf H 05/23/24 00:01 Vitals Last Vital Signs Temp 97.2 F L 05/23/24 10:00 Pulse 56 L 05/23/24 10:15 Resp 18 05/23/24 10:15 BP 117/68 05/23/24 10:00 Pulse Ox 98 05/23/24 10:15 O2 Del Method Room Air 05/23/24 10:15 Discharge Plan Discharge Patient Disposition: Home Condition: Stable Prescriptions: New diltiazem HCl [Cardizem] 30 mg tablet 30 mg PO Q8H PRN (Reason: HR more than 110 bpm) Qty: 20 0RF Continued magnesium oxide 250 mg magnesium tablet 250 mg PO DAILY multivitamin Tablet 1 tab PO DAILY turmeric root extract 500 mg capsule 500 mg PO DAILY Zyrtec 10 mg capsule 10 mg PO DAILY PRN (Reason: Allergy Symptoms) hydrochlorothiazide 50 mg tablet 50 mg PO DAILY Qty: 90 3RF furosemide 20 mg tablet 20 mg PO DAILY PRN (Reason: edema) Qty: 90 3RF apixaban 5 mg tablet 5 mg PO BID Qty: 180 3RF diltiazem HCl [Cardizem CD] 180 mg capsule,extended release 24hr 180 mg PO QAM Qty: 90 3RF potassium chloride [Klor-Con M20] 20 mEq tablet,ER particles/crystals 20 meq PO BID Rx Instructions: Alternate with 2 tablets every other day Discharge Orders: Discharge Order (Routine); Ordered 05/23/24 Ordered By: Braden Cruz Referrals: Grady Felton [Primary Care Provider] - (FOLLOW UP APPOINTMENT WITH NIKKO ON TuesdayMay AT 3:30PM ) Discharge Diet: Cardiac Discharge Activity: Resume usual activity and Increase activity as tolerated Patient Instructions: A-fib (Atrial Fibrillation) (DC), Opioid Safety, Pain Management Activity Restrictions/Additional Instructions: Continue medications as before. Follow-up with a primary care provider within next 1 week. Take Cardizem 30 mg oral daily as needed for heart rate of more than 110 bpm. He should get a sleep study done as an outpatient. Please discuss with the primary care provider regarding the same. Discharge Attestations Time Spent in Discharge Care*: greater than 30 min Specific Discharge Activities: educating patient, educating and/or supporting family/caregiver, discussing with pcp/other providers, discussing with supportive employment case manager/social workers/dc planners, documenting/other paperwork and evaluating patient/reviewing data Status at Discharge: Cognitive status at discharge: cognitively intact , Behavioral status at discharge: cooperative , Functional status at discharge: independent ambulation , Overall status at discharge: patient is back to baseline Quality Metrics Clinical Quality Measures [ No reported AMI, CVA or VTE this stay] Coding Level of Care Code 27502 Total time (in minutes) for Discharge: 60 Diagnoses Atrial fibrillation with rapid ventricular response I48.91 Hypokalemia E87.6
--- NOTE | 2024-05-23 14:36 | PC.NURSE ---
Patient was discharged with all follow ups and new medication instructions. Patient's IV was taken out and patient was stable before leaving the unit.
== END 2024-05-23 15:30 | disposition home or self-care (01) | DRG 310 ==
LOC: ER 02:50 → ICU 03:43
PROVIDERS: Admitting Provider Student in an Organized Health Care Education/Training Program; Emergency Provider Emergency Medicine; PCP Family Medicine; Visit Provider Student in an Organized Health Care Education/Training Program
DX: I48.91 Unspecified atrial fibrillation (principal); E87.6 Hypokalemia; I12.9 Hypertensive chronic kidney disease with stage 1 through stage 4 chronic kidney disease, or unspecified chronic kidney disease; N18.9 Chronic kidney disease, unspecified; Z87.891 Personal history of nicotine dependence; Z79.01 Long term (current) use of anticoagulants
CPT/HCPCS: 36415; 71045; 80053; 81001; 82607; 83036; 83540; 83550; 83735; 84443; 84484; 85025; 85378; 93005; 93306; 96365; 96366; 96367; 96375; 99285; J3490

== ENCOUNTER → 2024-08-15 14:00 | Outpatient (BNVA) | payer MEDICARE, OTHER, SELFPAY | PROVIDERS: PCP Family Medicine; Visit Provider Internal Medicine | DX: I48.0 Paroxysmal atrial fibrillation (principal); I73.9 Peripheral vascular disease, unspecified; Z87.891 Personal history of nicotine dependence; I12.9 Hypertensive chronic kidney disease with stage 1 through stage 4 chronic kidney disease, or unspecified chronic kidney disease; N18.9 Chronic kidney disease, unspecified; Z79.01 Long term (current) use of anticoagulants | CPT/HCPCS: 99214 ==

== ENCOUNTER → 2024-09-11 13:22 | Outpatient (BNVA) | payer MEDICARE, OTHER, SELFPAY | PROVIDERS: PCP Family Medicine; Visit Provider Internal Medicine Rheumatology | DX: I73.00 Raynaud's syndrome without gangrene (principal); M25.572 Pain in left ankle and joints of left foot; M06.042 Rheumatoid arthritis without rheumatoid factor, left hand; M06.041 Rheumatoid arthritis without rheumatoid factor, right hand; Z79.899 Other long term (current) drug therapy; Z71.85 Encounter for immunization safety counseling | CPT/HCPCS: 36415; 80076; 82565; 84550; 85025; 85651; 86140; 99214 ==

== ENCOUNTER → 2024-10-15 14:03 | Outpatient (BNVA) | payer MEDICARE, OTHER, SELFPAY | PROVIDERS: PCP Family Medicine; Visit Provider Internal Medicine Rheumatology | DX: M25.511 Pain in right shoulder (principal); I73.00 Raynaud's syndrome without gangrene; M06.041 Rheumatoid arthritis without rheumatoid factor, right hand; M06.042 Rheumatoid arthritis without rheumatoid factor, left hand; Z79.899 Other long term (current) drug therapy; Z71.89 Other specified counseling | CPT/HCPCS: 20610; J1010 ==

== ENCOUNTER → 2024-12-18 13:02 | Outpatient (BNVA) | payer MEDICARE, OTHER, SELFPAY | PROVIDERS: PCP Family Medicine; Visit Provider Internal Medicine Rheumatology | DX: Z71.89 Other specified counseling (principal); I73.00 Raynaud's syndrome without gangrene; M06.041 Rheumatoid arthritis without rheumatoid factor, right hand; M06.042 Rheumatoid arthritis without rheumatoid factor, left hand; Z79.899 Other long term (current) drug therapy; Z71.85 Encounter for immunization safety counseling; M25.572 Pain in left ankle and joints of left foot | CPT/HCPCS: 99214 ==

== ENCOUNTER → 2025-01-09 10:15 | Outpatient (BNVA) | payer MEDICARE, OTHER, SELFPAY | PROVIDERS: PCP Family Medicine; Visit Provider Nurse Practitioner Family | DX: L72.0 Epidermal cyst (principal); L82.1 Other seborrheic keratosis; L81.4 Other melanin hyperpigmentation; D18.01 Hemangioma of skin and subcutaneous tissue | CPT/HCPCS: 99213 ==

== ENCOUNTER → 2025-02-18 13:47 | Outpatient (BNVA) | payer MEDICARE, OTHER, SELFPAY | PROVIDERS: PCP Family Medicine; Visit Provider Nurse Practitioner Family | DX: I48.91 Unspecified atrial fibrillation (principal); Z79.01 Long term (current) use of anticoagulants; I12.9 Hypertensive chronic kidney disease with stage 1 through stage 4 chronic kidney disease, or unspecified chronic kidney disease; N18.9 Chronic kidney disease, unspecified; I73.9 Peripheral vascular disease, unspecified; Z87.891 Personal history of nicotine dependence | CPT/HCPCS: 99214 ==

== ENCOUNTER → 2025-05-01 14:04 | Outpatient (BNVA) | payer MEDICARE, OTHER, SELFPAY | PROVIDERS: PCP Family Medicine; Visit Provider Internal Medicine Rheumatology | DX: Z71.89 Other specified counseling (principal); I73.00 Raynaud's syndrome without gangrene; M06.041 Rheumatoid arthritis without rheumatoid factor, right hand; M06.042 Rheumatoid arthritis without rheumatoid factor, left hand; Z79.899 Other long term (current) drug therapy; Z71.85 Encounter for immunization safety counseling; M25.572 Pain in left ankle and joints of left foot; I48.91 Unspecified atrial fibrillation; Z79.01 Long term (current) use of anticoagulants | CPT/HCPCS: 99214 ==

== ENCOUNTER 2025-05-20 23:24 | Emergency (ER) | payer MEDICARE, OTHER, SELFPAY ==
[2025-05-20 23:26] VITALS: BP 141/87; PULSE 83; RESP 18; TEMP 36.6; O2SAT 95; BMI 32.5
--- NOTE | 2025-05-20 23:28 | W.ED.GENADLT ---
HPI - General Adult General: Chief complaint: Chest Pain Stated complaint: high hr Time Seen by Provider: 05/20/25 23:25 History of Present Illness: Patient is a 70yo F w/pmhx of paroxysmal atrial fibrillation on Eliquis, HTN, osteoarthritis w/cc of palpitations. Patient states that she started feeling fluttering in her chest and felt weak and when she measured her heart rate it was 155. She states that usually, these episodes terminate with putting a wet cloth on her face, bearing down as though she is about to have a bowel movement or holding her breath. Today, those maneuvers did not help and she took an additional dose of diltiazem 30 mg. When this did not resolve her symptoms, she called EMS. She received another dose via IV in ambulance and at this time, her symptoms have resolved. Patient has not been ill with a fever, cough, denies chest pain, shortness of breath, syncope, abdominal pain, nausea, vomiting, diarrhea, dysuria, leg swelling or leg asymmetry. She states that she has been working in her yard today and has not been eating and drinking as well as she should have. She states that previously, her episode of atrial fibrillation was last year and she had a low potassium at that time. Patient states that she had lab work done in April, TSH was normal at that time. Related Data Home Medications ?Medication ?Instructions ?Recorded ?Confirmed turmeric root extract 500 mg 500 mg PO DAILY 09/12/19 05/01/25 capsule magnesium oxide 250 mg PO DAILY 12/17/19 05/01/25 multivitamin 1 tab PO DAILY 12/17/19 05/01/25 cetirizine 10 mg capsule (Zyrtec) 10 mg PO DAILY PRN Allergy Symptoms 08/17/22 05/01/25 acetaminophen 500 mg capsule 1,000 mg PO BID 02/18/25 05/01/25 antiarthritic combination no.2 900 mg PO 02/18/25 05/01/25 mg tablet (glucosamine-chondroitin) Previous Rx's ?Medication ?Instructions ?Recorded diltiazem HCl 30 mg tablet 30 mg PO Q8H PRN HR more than 110 05/23/24 (Cardizem) bpm #20 tabs apixaban 5 mg tablet 5 mg PO BID #180 tabs 06/28/24 diltiazem HCl 180 mg See Rx Instructions .Route 07/13/24 capsule,extended release 24 hr .COMPLEX #90 caps prednisone 20 mg tablet See Rx Instructions PO .COMPLEX 12/18/24 PRN joint pain flare #30 tabs potassium chloride 20 mEq 20 meq PO BID #180 tabs 01/01/25 tablet,extended release(part/cryst) (Klor-Con M) furosemide 20 mg tablet See Rx Instructions .Route 02/25/25 .COMPLEX #90 tabs hydrochlorothiazide 50 mg tablet See Rx Instructions .Route 02/25/25 .COMPLEX #90 tabs tramadol 50 mg tablet 50 mg PO BID PRN pain (scale score 04/09/25 7-10) #60 tabs Allergies Allergy/AdvReac Type Severity Reaction Status Date / Time Penicillins Allergy Intermediate rash, hives Verified 05/20/25 23:32 sulfamethoxazole (From Allergy Mild nausea Verified 05/20/25 23:32 Bactrim) trimethoprim (From Bactrim) Allergy Mild nausea Verified 05/20/25 23:32 ciprofloxacin (From Cipro) Allergy Unknown Unknown Verified 05/20/25 23:32 clarithromycin (From Biaxin) Allergy Unknown Unknown Verified 05/20/25 23:32 metronidazole (From Flagyl) Allergy Unknown Unknown Verified 05/20/25 23:32 hydroxychloroquine AdvReac Intermediate mouth sores Verified 05/20/25 23:32 leflunomide AdvReac Intermediate ADR-Depression Verified 05/20/25 23:32 and increased pain PFSH ED PFSH: Medical History (Updated 05/21/25 @ 01:40 by Sarita Pruitt MD) Immunization counseling High risk medication use Seronegative rheumatoid arthritis of both hands PAD (peripheral artery disease) Atrial fibrillation CRP elevated Raynauds disease CKD (chronic kidney disease) Cervicalgia Inflammatory arthritis Back pain with history of spinal surgery Raynaud phenomenon Essential hypertension Varicose veins of both lower extremities Arthritis of carpometacarpal (CMC) joint of right thumb DJD (degenerative joint disease) of thoracic spine Osteoarthritis Surgical History History of appendectomy History of cholecystectomy Family History Grandmother Diabetes Father Family history of CABG Denies family history of Rheumatoid arthritis Lupus Social History (Reviewed 05/01/25 @ 14:47 by JANNETTE Andrade Smoking and tobacco/nicotine status: former use of tobacco/nicotine Alcohol intake: never Substance/Drug Use: never Physical Exam Narrative: EXAM NARRATIVE: Vitals were reviewed. Patient is alert, oriented and hemodynamically stable. Patient is afebrile. Patient has clear lung sounds bilaterally, normal heart sounds. She has a nontender, nondistended abdomen. No lower extremity swelling or asymmetry. Course Vital Signs: Vital signs: Vital Signs Temperature 97.8 F 05/20/25 23:26 Pulse Rate 65 05/21/25 00:16 Respiratory Rate 22 H 05/21/25 00:16 Blood Pressure 133/58 05/21/25 00:16 Pulse Oximetry 95 05/21/25 00:16 [facility] - General Adult Medical Decision Making 70-year-old female with a history of paroxysmal atrial fibrillation on Eliquis presents with a chief complaint of weakness and palpitations that have now resolved after receiving Cardizem in the ambulance and taking an extra dose at home. She states this is similar to previous episode of atrial fibrillation. Differential diagnosis includes but is limited to, atrial fibrillation, A-fib with RVR, electrolyte normality such as hypokalemia, hypomagnesemia, dehydration, underlying infection, other. Initial exam she cynically stable. Patient has not been feeling ill. She was screened with CBC, BMP, magnesium, EKG. EKG shows normal sinus rhythm with occasional PAC, normal axis, normal intervals, no STEMI. Patient has a normal white blood cell count and is not anemic. She has mild hypokalemia, potassium was replaced orally. She has minimally elevated anion gap and does admit to poor p.o. intake today and has not eaten and drink fluids as usual due to yard work. Magnesium is within normal limits. It appears that patient had an episode of paroxysmal afib w/RVR which has now resolved and not recurred after treatment [employer]. Patient is quite comfortable going home at this time. Patient was counseled on strict return precautions, advised to follow-up with her primary care physician and supervisor operations on an outpatient basis. Lab Data 05/20/25 23:30 05/20/25 23:30 Laboratory Results WBC 9.21 10^3/uL (3.29-11.43) 05/20/25 23:30 RBC 4.79 10^6/uL (3.85-5.65) 05/20/25 23:30 Hgb 14.40 g/dL (11.27-16.99) 05/20/25 23: Hct 43.0 % (36-47) 05/20/25 23:30 MCV 89.8 fl (85-98) 05/20/25 23: MCH 30.1 pg (27-33) 05/20/25: MCHC 33.5 g/dL (30-55) 05/20/25 23: RDW 13.2 % (12.1-15.1) 05/20/25 23: Plt Count 257 10^3/cmm (157-399) 05/20/25: MPV 10.0 fL (7.4-10.4) 05/20/25 23:30 Neut % (Auto) 62.5 % 05/20/25 23: Lymph % (Auto) 24.4 % 05/20/25 23: [place] % (Auto) 9.9 % 05/20/25: Eos % (Auto) 2.3 % 05/20/25 23: Baso % (Auto) 0.8 % 05/20/25 23: Neut # (Auto) 5.76 10^3/uL (1.8-7.7) 05/20/25 23: Lymph # (Auto) 2.3 10^3/uL (0.8-4.8) 05/20/25 23:30 [place] # (Auto) 0.9 10^3/uL (0.2-0.9) 05/20/25: Eos # (Auto) 0.2 10^3/uL (0.0-0.8) 05/20/25 23:30 Baso # (Auto) 0.1 10^3/uL (0.0-0.1) 05/20/25: Nucleated RBC % (auto) 0 % 05/20/25 23: Nucleated RBCs # 0.0 /100WBC 05/20/25 23:30 Sodium 139 mmol/L (136-145) 05/20/25 23: Potassium 3.2 mmol/L (3.5-5.1) L 05/20/25 23:30 Chloride 100 mmol/L (98-107) 05/20/25 23:30 Carbon Dioxide 23 mmol/L (22-29) 05/20/25 23:30 Anion Gap 19.2 (5-19) H 05/20/25 23:30 BUN 16 mg/dL (8-23) 05/20/25 23:30 Creatinine 0.7 mg/dL (0.5-0.9) 05/20/25 23:30 GFR Calculation Not Reportable 05/20/25 23:30 Glucose 118 mg/dL (65-115) H 05/20/25 23:30 Calculated Osmolality 290 mOsm/kg (285-295) 05/20/25 23:30 Calcium 9.4 mg/dL (8.5-10.5) 05/20/25 23:30 Magnesium 2.1 mg/dL (1.7-2.3) 05/20/25 23:30 No radiology studies performed this visit EKG Data EKG 1: Interpretation: Normal sinus rhythm with occasional PAC, normal axis, normal intervals, no STEMI Discharge Plan Discharge Patient Disposition: Home Clinical Impression: AF (paroxysmal atrial fibrillation) Condition: Stable Prescriptions: No Action magnesium oxide 250 mg magnesium tablet 250 mg PO DAILY multivitamin Tablet 1 tab PO DAILY turmeric root extract 500 mg capsule 500 mg PO DAILY acetaminophen 500 mg capsule 1,000 mg PO BID glucosamine-chondroitin 900 mg tablet PO prednisone 20 mg tablet See Rx Instructions PO .COMPLEX PRN (Reason: joint pain flare) Qty: 30 1RF Rx Instructions: take 1 daily for up to 7 days for joint pain flare. Zyrtec 10 mg capsule 10 mg PO DAILY PRN (Reason: Allergy Symptoms) apixaban 5 mg tablet 5 mg PO BID Qty: 180 3RF diltiazem HCl 180 mg capsule,extended release 24hr See Rx Instructions .ROUTE .COMPLEX Qty: 90 3RF Dose Instruction: TAKE 1 CAPSULE BY MOUTH EVERY MORNING Rx Instructions: TAKE 1 CAPSULE BY MOUTH EVERY MORNING potassium chloride [Klor-Con M20] 20 mEq tablet,ER particles/crystals 20 meq PO BID Qty: 180 3RF furosemide 20 mg tablet See Rx Instructions .ROUTE .COMPLEX Qty: 90 0RF Dose Instruction: TAKE 1 TABLET BY MOUTH DAILY NEEDED FOR SWELLING Rx Instructions: TAKE 1 TABLET BY MOUTH DAILY NEEDED FOR SWELLING hydrochlorothiazide 50 mg tablet See Rx Instructions .ROUTE .COMPLEX Qty: 90 0RF Dose Instruction: TAKE 1 TABLET BY MOUTH DAILY Rx Instructions: TAKE 1 TABLET BY MOUTH DAILY tramadol 50 mg tablet 50 mg PO BID PRN (Reason: pain (scale score 7-10)) Qty: 60 0RF diltiazem HCl [Cardizem] 30 mg tablet 30 mg PO Q8H PRN (Reason: HR more than 110 bpm) Qty: 20 0RF Discharge Orders: Discharge ED (Routine); Ordered 05/21/25 Ordered By: Sarita Pruitt Referrals: Grady Felton [Primary Care Provider, Family Practice] Patient Instructions: Opioid Safety, Pain Management, Patient Portal & López Instructions, Atrial Fibrillation Activity Restrictions/Additional Instructions: Continue to monitor your condition closely at home. If your condition worsens or additional concerns arise, please return to the emergency department for reassessment. Please follow-up with your primary care physician and supervisor operations on an outpatient basis. I recommend keeping a symptom diary of these episodes; if they become more frequent you may need a change in dose of your medications. Print Language: Salvadorean Coding Level of Care Code ED [place] for Preet Fernández
--- OUTSIDE RECORDS SUMMARY | 2025-05-20 23:37 | XMS_ITS | Encounter Summary ---
Author Organization [facility] Address [address] [place] [address] Care Team Providers Care Salesperson Flying Squad Name Role Phone Grady Felton MD Primary Care Provider +1 -[phone] Encounter Details Date Type Department Care Team ([facility] st Contact Info) Description 11/20/2008 Ancillary Orders [facility] [address] [place] [address] Melida Archibald MD [address] [place] [address] Other Screening Mammogram Social History Tobacco Use Types Packs/Day Years Used Date Smoking Tobacco: Never Assessed Comments Unknown Sex and Gender Information Value Date Recorded Sex Assigned at Not on file 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 This examination was reviewed with the aid of a computer-aided detection system(CAD). The breast tissue density is average. No significant new findings since the prior mammogram(s). Procedure Note Mine Bermudez MD - 01/23/2009 Bilateral Mammogram Reason for Exam: Screening Comparison: Comparison is made with the prior exam(s) dated 11.26.03 Findings: Bilateral CC and MLO views were obtained. This examination was reviewed with the aid of a computer-aided detectionsystem(CAD). The breast tissue density is average. No significant new findings since the prior mammogram(s). Melida Archibald MD MAMMO ORDERABLES Final Result documented in this encounter Visit Diagnoses Diagnosis Other screening mammogram Other screening mammogram documented in this encounter Care Teams Salesperson Flying Squad Relationship Specialty Start Date End Date Grady Felton MD [address] [phone] PCP - General Family Practice 03/03/20 documented as of this encounter
--- OUTSIDE RECORDS SUMMARY | 2025-05-20 23:37 | XMS_ITS | Encounter Summary ---
Author Organization [facility] Address [address] [place] [address] Care Team Providers Care Sprayer Hand Name Role Phone Grady Felton MD Primary Care Provider +1 -[phone] Encounter Details Date Type Department Care Team (Late st Contact Info) Description 03/21/2000 Outpatient Historical [facility] [place] [address] [place] [address] Vic Gregory MD [address] [facility] [address] [place] [address] Gynecologic examination (Primary Dx) Social History Tobacco Use Types Packs/Day Years Used Date Smoking Tobacco: Never Assessed Comments Unknown Sex and Gender Information Value Date Recorded Sex Assigned at Not on file 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
--- OUTSIDE RECORDS SUMMARY | 2025-05-20 23:37 | XMS_ITS | Encounter Summary ---
Author Organization [facility] Address [address] [place] [address] Care Team Providers Care Trust Manager Name Role Phone Grady Felton MD Primary Care Provider +1 -[phone] Encounter Details Date Type Department Care Team (Latest Contact Info) Description 06/01/1999 Outpatient Historical [facility] [address] [facility] [address] [place] [address] Compa Cameron MD NO ADDRESS ON FILE Family history of malignant neoplasm of breast (Primary Dx); Other specified personal history presenting hazards to health(V15.89) Social History Tobacco Use Types Packs/Day Years Used Date Smoking Tobacco: Never Assessed Comments Unknown Sex and Gender Information Value Date Recorded Sex Assigned at Not on file 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
--- OUTSIDE RECORDS SUMMARY | 2025-05-20 23:37 | XMS_ITS | Encounter Summary ---
Author Organization [facility] Address [address] [place] [address] Care Team Providers Care Records Management Technician Name Role Phone Grady Felton MD Primary Care Provider +1 -[phone] Encounter Details Date Type Department Care Team ([facility] st Contact Info) Description 08/05/1998 Outpatient Historical [facility] [address] [place] [address] Josue Mackey MD [address] [place] [address] Abdominal pain, unspecified site (Primary Dx) Social History Tobacco Use Types Packs/Day Years Used Date Smoking Tobacco: Never Assessed Comments Unknown Sex and Gender Information Value Date Recorded Sex Assigned at Not on file 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
--- OUTSIDE RECORDS SUMMARY | 2025-05-20 23:37 | XMS_ITS | Encounter Summary ---
Author Organization [facility] Address [address] [facility] Attn: [place] [address] Care Team Providers Care Yarder Puncher Name Role Phone Grady Felton MD Primary Care Provider +1 -[phone] Encounter Details Date Type Department Care Team (Late st Contact Info) Description 09/28/2006 Outpatient Historical Cr Marina DO NO ADDRESS ON FILE Social History Tobacco Use Types Packs/Day Years Used Date Smoking Tobacco: Never Assessed Comments Unknown Sex and Gender Information Value Date Recorded Sex Assigned at Not on file Legal Sex Female 4:52 AM ELECT EQUIP MAINT ENG Gender Identity Not on file Sexual Orientation Not on file documented as of this encounter Plan of Treatment Not on file documented as of this encounter Procedures Procedure Name Priority Date/Time Associated Diagnosis Comments IMMUNOFIXATION Routine 09/28/2006 7:37 AM ELECT EQUIP MAINT ENG PROTEIN ELECTROPHORESIS W/REFLEX,SERUM Routine 09/28/2006 7:37 AM ELECT EQUIP MAINT ENG documented in this encounter Results * (ABNORMAL) PROTEIN ELECTROPHORESIS, SERUM (09/28/2006 7:37 AM ELECT EQUIP MAINT ENG) SPE INTERP INTERFACE SYSTEM Comment: Normal serum protein electrophoresis. No monoclonal gammopathy detected. See immunofixation report. Interpreted by Laith Reddy M.D., Ph.D. PROTEIN TOTAL, SPE 6.90 6.10 - 7.80 g/dL INTERFACE SYSTEM ALBUMIN SPE 4.31 3.50 - 5.30 g/dL INTERFACE SYSTEM ALPHA 1 GLOBULIN SPE .21 0.11 - 0.31 INTERFACE SYSTEM ALPHA 2 GLOBULIN SPE .75 0.58 - 1.16 g/dL INTERFACE SYSTEM BETA GLOBULIN .61 0.59 - 0.88 g/dL INTERFACE SYSTEM GAMMA GLOBULIN 1.01 0.50 - 1.35 g/dL INTERFACE SYSTEM ALBUMIN %, 62.5 57.4 - 65.5 % INTERFACE SYSTEM % ALPHA 1 GLOBULIN 3.0 1.8 - 3.8 % INTERFACE SYSTEM % ALPHA 2 GLOBULIN 10.9 9.5 - 14.3 % INTERFACE SYSTEM % Beta Globulin 8.8(L) 9.1 - 10.9 % INTERFACE SYSTEM % GAMMA GLOBULIN 14.6 8.2 - 16.7 % INTERFACE SYSTEM ALBUMIN/GLOBULI N RATIO 1.66 g/dL INTERFACE SYSTEM 09/28/2006 7:37 AM ELECT EQUIP MAINT ENG Cr Marina DO CHEMISTRY ORDERABLES Edited Performing Organization Address City/[facility] Co de Phone Number INTERFACE SYSTEM Refer to clinic/hospital department * IMMUNOFIXATION (09/28/2006 7:37 AM ELECT EQUIP MAINT ENG) [facility] IMMUNOFIXATION INTER FACE SYSTEM Comment: No M Band identified. Normal polyclonal immunoglobulins demonstrated. Interpreted by: Easton Enriquez, Ph.D. 09/28/2006 7:37 AM ELECT EQUIP MAINT ENG Cr Marina DO CHEMISTRY ORDERABLES Edited Performing Organization Address City/[facility] Co de Phone Number INTERFACE SYSTEM Refer to clinic/hospital department documented in this encounter Visit Diagnoses Not on filedocumented in this encounter Care Teams Yarder Puncher Relationship Specialty Start Date End Date Grady Felton MD [address] [phone] PCP - General Family Practice 03/03/20 documented as of this encounter
--- OUTSIDE RECORDS SUMMARY | 2025-05-20 23:37 | XMS_ITS | Encounter Summary ---
Author Organization [facility] Address [address] [place] [address] Care Team Providers Care Power Press Supervisor Name Role Phone Grady Felton MD Primary Care Provider +1 -[phone] Encounter Details Date Type Department Care Team (Latest Contact Info) Description 11/07/1998 Outpatient Historical [facility] Family Medicine- [address] [place] [address] Fatmata Chase NO ADDRESS ON FILE Tobacco use disorder (Primary Dx); Sprain of neck; Nonallopathic lesion of thoracic region, not elsewhere classified; Nonallopathic lesion of pelvic region, not elsewhere classified Social History Tobacco Use Types Packs/Day Years Used Date Smoking Tobacco: Never Assessed Comments Unknown Sex and Gender Information Value Date Recorded Sex Assigned at Not on file Legal 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 Gender Identity Not on file Sexual Orientation Not on file documented as of this encounter Plan of Treatment Not on file documented as of this encounter Visit Diagnoses Diagnosis Tobacco use disorder- Primary Sprain of neck Neck sprain and strain Nonallopathic lesion of thoracic region, not elsewhere classified Nonallopathic lesion of pelvic region, not elsewhere classified documented in this encounter Care Teams Power Press Supervisor Relationship Specialty Start Date End Date Grady Felton MD [address] [facility] [address] [place] [address] PCP - General Family Practice 03/03/20 documented as of this encounter
--- OUTSIDE RECORDS SUMMARY | 2025-05-20 23:37 | XMS_ITS | Encounter Summary ---
Author Organization [facility] Address [address] [place] [address] Care Team Providers Care Striper Machine Name Role Phone Grady Felton MD Primary Care Provider +1 -[phone] Encounter Details Date Type Department Care Team (Latest Contact Info) Description 04/28/2007 Outpatient Historical [facility] Operating Room [address] [place] [address] Juan Carlos Price MD [address] [address] Polyp of Corpus Uteri (Primary Dx) Social History Tobacco Use Types Packs/Day Years Used Date Smoking Tobacco: Never Assessed Comments Unknown Sex and Gender Information Value Date Recorded Sex Assigned at Not on file 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 HCG ranges during normal , as reported by the chip crusher operator, are summarized as follows: Gestational Age Expected hCG Values (mIU/ml) 0.2-1 Weeks 5 - 50 1-2 Weeks 50 - 500 2-3 Weeks 100 - 5,000 3-4 Weeks 1,000 - 50,000 5-6 Weeks 10,000 - 100,000 6-8 Weeks 15,000 - 200,000 2-3 Months 10,000 - 100,000 04/28/2007 6:30 AM CDT us Juan Carlos Price MD CHEMISTRY ORDERABLES Edited Performing Organization Address City/State/[facility] Co de Phone Number INTERFACE SYSTEM Refer to clinic/hospital department documented in this encounter Visit Diagnoses Diagnosis Polyp of corpus uteri- Primary documented in this encounter Care Teams Striper Machine Relationship Specialty Start Date End Date Grady Felton MD [address] [address] PCP - General Family Practice 03/03/20 documented as of this encounter
--- OUTSIDE RECORDS SUMMARY | 2025-05-20 23:37 | XMS_ITS | Encounter Summary ---
Author Organization [facility] Address [address] [place] [address] Care Team Providers Care Cleat Feeder Name Role Phone Grady Felton MD Primary Care Provider +1 -[phone] Encounter Details Date Type Department Care Team (Latest Contact Info) Description 09/26/2006 Outpatient Historical [facility] Cook [address] [place] [address] [address] Cr Marina DO NO ADDRESS ON FILE Abdominal Pain, Unspecified Site (Primary Dx); Unspecified Chest Pain Social History Tobacco Use Types Packs/Day Years Used Date Smoking Tobacco: Never Assessed Comments Unknown Sex and Gender Information Value Date Recorded Sex Assigned at Not on file 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
--- OUTSIDE RECORDS SUMMARY | 2025-05-20 23:37 | XMS_ITS | Encounter Summary ---
Author Organization [facility] Address [address] [place] [address] Care Team Providers Care Chute Worker Name Role Phone Grady Felton MD Primary Care Provider +1 -[phone] Reason for Referral * Outpatient Services (Routine) - Closed Specialty Diagnoses / Procedures Referred By Daniel t Referred To Contact Radiology Diagnoses Encounter for screening mammogram for breast cancer Procedures MAMMO SCREEN BILAT W OR WO CAD Melida Archibald MD [address] [address] Phone: tel: fax: [facility] [address] [facility] [address] [place] [address] Phone: tel: fax: Referral ID Status Reason Start Date Expiration Date Visits Re quested Visits Authorized [id number] Closed 11/02/2016 12/03/2017 1 1 Encounter Details Date Type Department Care Team (Latest Contact Info) Description 11/02/2016 Ancillary Orders [facility] Pre-Registration [place] CALL TO MAKE APPOINTMENT ONLY [address] [place] [address] Melida Archibald MD [address] [address] Encounter for screening mammogram for breast cancer Social History Tobacco Use Types Packs/Day Years Used Date Smoking Tobacco: Former Cigarettes 0.5 20 0 11/06/1994 - 11/06/2014 Smokeless Tobacco: Never Comments:chews nicorite gum Alcohol Use Standard Drinks/Week Comments No 0 (1 standard drink = 0.6 oz pur e alcohol) Comments No Sex and Gender Information Value Date Recorded Sex Assigned at Not on file 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 Gender Identity Not on file Sexual Orientation Not on file Occupation Industry Job Start Date Job End Date Not on file Not on file Not on file Not on file documented as of this encounter Plan of Treatment Not on file documented as of this encounter Results * MAMMO SCREEN BILAT W OR WO CAD (12/16/2016 8:24 AM CDT) Anatomical Region Laterality Modality Breast Bilateral Mammography Narrative 12/17/2016 12:01 PM CDT Bilateral Mammogram Reason for Exam: Screening Comparison: Compared to: 06/19/2015 MAMMO DIGITAL SCREEN BILAT, 05/09/2014 MAMMO DIGITAL SCREEN BILAT, 10/10/2012 MAMMO DIGITAL SCREEN BILAT, and 04/22/2010 MAMMO DIGITAL SCREEN BILAT Findings: Bilateral CC and MLO views were obtained. This examination was reviewed with the aid of a computer-aided detection system(CAD). Breast Composition: The breasts are almost entirely fatty. The fibroglandular pattern is stable. No suspicious abnormality is identified. No significant new findings since the prior mammogram(s). Melida Archibald MD MAMMO ORDERABLES Final Result documented in this encounter Visit Diagnoses Diagnosis Encounter for screening mammogram for breast cancer Encounter for screening mammogram for breast cancer documented in this encounter Care Teams Chute Worker Relationship Specialty Start Date End Date Grady Felton MD [address] [address] PCP - General Family Practice 03/03/20 documented as of this encounter
--- OUTSIDE RECORDS SUMMARY | 2025-05-20 23:37 | XMS_ITS | Encounter Summary ---
Author Organization [facility] Address [address] [place] [address] Care Team Providers Care Senior Sql Server Developer Name Role Phone Grady Felton MD Primary Care Provider +1 -[phone] Reason for Referral * Radiology Services (Routine) - Closed Specialty Diagnoses / Procedures Referred By Contac t Referred To Contact Diagnoses Visit for screening mammogram Procedures MAMMO SCRN BILAT 3D JOHN W OR WO CAD MAMMO SCRN BILAT 3D JOHN W OR WO CAD CHG SCREENING MAMMOGRAPHY BI 2-VIEW BREAST INC CAD CHG SCREENING DIGITAL BREAST TOMOSYNTHESIS BI CHG SCREENING MAMMOGRAPHY BI 2-VIEW BREAST INC CAD CHG SCREENING DIGITAL BREAST TOMOSYNTHESIS BI Grady Felton MD [address] [address] Phone: tel: fax: Referral ID Status Reason Start Date Expiration Date Visits Re quested Visits Authorized [id number] Closed 05/02/2019 06/01/2020 1 1 Encounter Details Date Type Department Care Team (Late st Contact Info) Description 06/27/[address] 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 Gender Identity Not on file Sexual Orientation Not on file Occupation Industry Job Start Date Job End Date Not on file Not on file Not on file Not on file documented as of this encounter Plan of Treatment Not on file documented as of this encounter Results * MAMMO SCRN BILAT 3D JOHN W OR WO CAD (06/27/2019 10:13 AM PLASTIC SURGEON) Anatomical Region Laterality Modality Breast Bilateral Mammography Narrative 07/01/2019 5:03 PM PLASTIC SURGEON Bilateral Digital Mammogram with CAD and 3D Tomography Reason for Exam: Screening Comparison: Compared to: 06/23/2018 MAMMO SCRN BILAT 3D JOHN W OR WO CAD, 12/16/2016 MAMMO SCREEN BILAT W OR WO CAD, 06/19/2015 MAMMO DIGITAL SCREEN BILAT, 05/09/2014 MAMMO DIGITAL SCREEN BILAT, and 10/10/2012 MAMMO DIGITAL SCREEN BILAT Technique: 3D MLO and CC digital tomosynthesis images were acquired and synthesized 2D images (C view) were generated. This digital mammogram was also analyzed by the Computer Aided Detection System CAD). Breast Composition: The breasts are almost entirely fatty. There are no suspicious masses, areas of architectural distortions, or microcalcifications to suggest malignancy. No significant new findings since the prior mammogram(s). Grady Felton MD MAMMO ORDERABLES Final Re sult documented in this encounter Visit Diagnoses Diagnosis Visit for screening mammogram Other screening mammogram Visit for screening mammogram Other screening mammogram documented in this encounter Care Teams Senior Sql Server Developer Relationship Specialty Start Date End Date Grady Felton MD [address] [facility] [address] [place] [address] PCP - General Family Practice 03/03/20 documented as of this encounter
--- OUTSIDE RECORDS SUMMARY | 2025-05-20 23:37 | XMS_ITS | Encounter Summary ---
Author Organization [facility] Address [address] [place] [address] Care Team Providers Care Command And Control Specialist Name Role Phone Grady Felton MD Primary Care Provider +1 -[phone] Encounter Details Date Type Department Care Team (Latest Contact Info) Description 06/01/1999 Outpatient Historical [facility] Khoi III, Mango Urias MD [address] [address] Need vaccination-viral disease (Primary Dx); Need for prophylactic vaccination against Streptococcus pneumoniae (pneumococcus) Social History Tobacco Use Types Packs/Day Years Used Date Smoking Tobacco: Never Assessed Comments Unknown Sex and Gender Information Value Date Recorded Sex Assigned at Not on file Legal Sex Female 4: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 DAIRY 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 Gender Identity Not on file Sexual Orientation Not on file documented as of this encounter Plan of Treatment Not on file documented as of this encounter Visit Diagnoses Diagnosis Need vaccination-viral disease- Primary Need for prophylactic vaccination and inoculation against other viral diseases Need for prophylactic vaccination against Streptococcus pneumoniae (pneumococcus) Need for prophylactic vaccination against streptococcus pneumoniae (pneumococcus) documented in this encounter Care Teams Command And Control Specialist Relationship Specialty Start Date End Date Grady Felton MD [address] [facility] [address] [place] [address] PCP - General Family Practice 03/03/20 documented as of this encounter
--- OUTSIDE RECORDS SUMMARY | 2025-05-20 23:37 | XMS_ITS | Encounter Summary ---
Author Organization [facility] Address [address] [place] [address] Care Team Providers Care Mac Operator Name Role Phone Grady Felton MD Primary Care Provider +1 -[phone] Encounter Details Date Type Department Care Team (Latest Contact Info) Description 09/01/1998 Outpatient Historical [facility]-[address] [place] [address] Abdominal pain, right upper quadrant (Primary Dx); Nonspecific (abnormal) findings on radiological and other examination of biliary tract Social History Tobacco Use Types Packs/Day Years Used Date Smoking Tobacco: Never Assessed Comments Unknown Sex and Gender Information Value Date Recorded Sex Assigned at Not on file Legal 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 [address] [place] [address] PCP - General Family Practice 03/03/20 documented as of this encounter
--- OUTSIDE RECORDS SUMMARY | 2025-05-20 23:37 | XMS_ITS | Encounter Summary ---
Author Organization [facility] Address [address] [place] [address] Care Team Providers Care Atomizer Assembler Name Role Phone Grady Felton MD Primary Care Provider +1 -[phone] Encounter Details Date Type Department Care Team (Late st Contact Info) Description 06/09/1998 Outpatient Historical [facility] Social History Tobacco Use Types Packs/Day Years Used Date Smoking Tobacco: Never Assessed Comments Unknown Sex and Gender Information Value Date Recorded Sex Assigned at Not on file Legal Sex Female 4:52 AM MOBILE APPLICATION TESTER Gender Identity Not on file Sexual Orientation Not on file documented as of this encounter Plan of Treatment Not on file documented as of this encounter Visit Diagnoses Not on filedocumented in this encounter Care Teams Atomizer Assembler Relationship Specialty Start Date End Date Grady Felton MD [address] [facility] [address] [place] [phone] PCP - General Family Practice 03/03/20 documented as of this encounter
--- OUTSIDE RECORDS SUMMARY | 2025-05-20 23:37 | XMS_ITS | Encounter Summary ---
Author Organization [facility] Address [address] [place] [address] Care Team Providers Care Physicist Solid Earth Name Role Phone Grady Felton MD Primary Care Provider +1 -[phone] Encounter Details Date Type Department Care Team (Latest Contact Info) Description 03/28/[address] 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
--- OUTSIDE RECORDS SUMMARY | 2025-05-20 23:37 | XMS_ITS | Encounter Summary ---
Author Organization [facility] Address [address] [place] [address] Care Team Providers Care Social Media Marketer Name Role Phone Grady Felton MD Primary Care Provider +1 -[phone] Encounter Details Date Type Department Care Team (Latest Contact Info) Description 10/05/1999 Outpatient Historical [facility] Medicine [place] [address] [phone] Raman Alejandre MD [address] [phone] Acute sinusitis, unspecified (Primary Dx); Dysfunct eustachian tube Social History Tobacco Use Types Packs/Day Years Used Date Smoking Tobacco: Never Assessed Comments Unknown Sex and Gender Information Value Date Recorded Sex Assigned at Not on file Legal 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
--- OUTSIDE RECORDS SUMMARY | 2025-05-20 23:37 | XMS_ITS | Encounter Summary ---
Author Organization [facility] Address [address] [place] [address] Care Team Providers Care Branch Associate Name Role Phone Grady Felton MD Primary Care Provider +1 [phone] Encounter Details Date Type Department Care Team (Latest Contact Info) Description 08/05/1998 Outpatient Historical [facility] General and Trauma Surgery-[address] [place] [address] Yaron Ford MD [address] [place] [address] [address] [place] [address] Chronic cholecystitis (Primary Dx) Social History Tobacco Use Types Packs/Day Years Used Date Smoking Tobacco: Never Assessed Comments Unknown Sex and Gender Information Value Date Recorded Sex Assigned at Not on file 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
--- OUTSIDE RECORDS SUMMARY | 2025-05-20 23:38 | XMS_ITS | Encounter Summary ---
Author Organization [facility] Address [address] [place] [address] Care Team Providers Care Network Control Operators Supervisor Name Role Phone Grady Felton MD Primary Care Provider +1 -[phone] Encounter Details Date Type Department Care Team ([facility] st Contact Info) Description 05/08/2014 Ancillary Orders [facility] Medicine [place] [address] [address] Aye Flores MD [address] [address] Other screening mammogram (Primary Dx) Social History Tobacco Use Types Packs/Day Years Used Date Smoking Tobacco: Every Day Cigarettes 0.5 20 Smokeless Tobacco: Never Alcohol Use Standard Drinks/Week Comments No 0 (1 standard drink = 0.6 oz pur e alcohol) Comments No Sex and Gender Information Value Date Recorded Sex Assigned at Not on file 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 Exam was auto-finalized. Procedure Note Loraine White, RT - 05/08/2014 Order information only. Exam was auto-finalized. us Aye Flores MD DIAGNOSTIC IMAGING ORDERABL ES Final Result documented in this encounter Visit Diagnoses Diagnosis Other screening mammogram- Primary Other screening mammogram documented in this encounter Care Teams Network Control Operators Supervisor Relationship Specialty Start Date End Date Grady Felton MD [address] [phone] PCP - General Family Practice 03/03/20 documented as of this encounter
--- OUTSIDE RECORDS SUMMARY | 2025-05-20 23:38 | XMS_ITS | Encounter Summary ---
Author Organization [facility] Address [address] [place] [address] Care Team Providers Care Advertising Manager Name Role Phone Grady Felton MD Primary Care Provider +1 [phone] Encounter Details Date Type Department Care Team (Latest Contact Info) Description 07/10/2002 Outpatient Historical [facility] [address] [place] [address] Cr Marina DO NO ADDRESS ON FILE CHEST PAIN NOS (Primary Dx) Social History Tobacco Use Types Packs/Day Years Used Date Smoking Tobacco: Never Assessed Comments Unknown Sex and Gender Information Value Date Recorded Sex Assigned at Not on file 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
--- OUTSIDE RECORDS SUMMARY | 2025-05-20 23:38 | XMS_ITS | Encounter Summary ---
Author Organization [facility] Address [address] [place] [address] Care Team Providers Care Skilled Labor Name Role Phone Grady Felton MD Primary Care Provider +1 [phone] Encounter Details Date Type Department Care Team ([facility] st Contact Info) Description 11/14/2014 Lab Requisition [facility] Laboratory Services [place] [address] [phone] Aye Flores MD [address] [place] [phone] Social History Tobacco Use Types Packs/Day Years Used Date Smoking Tobacco: Former Cigarettes 0.5 20 0 11/06/1994 - 11/06/2014 Smokeless Tobacco: Never Alcohol Use Standard Drinks/Week Comments No 0 (1 standard drink = 0.6 oz pur e alcohol) Comments No Sex and Gender Information Value Date Recorded Sex Assigned at Not on file Legal Sex Female 4: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 AND 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 Gender Identity Not on file Sexual Orientation Not on file Occupation Industry Job Start Date Job End Date Not on file Not on file Not on file Not on file documented as of this encounter Plan of Treatment Not on file documented as of this encounter Procedures Procedure Name Priority Date/Time Associated Diagnosis Comments CBC WITH DIFFERENTIAL Routine 11/14/2014 7:00 AM CDT LIPID PANEL Routine 11/14/2014 7:00 AM CDT COMPREHENSIVE METABOLIC PANEL Routine 11/14/2014 7:00 AM CDT documented in this encounter Results * (ABNORMAL) CBC WITH DIFFERENTIAL (11/14/2014 7:00 AM CDT) WBC 6.4 4.0 - 10.0 K/uL 11/14/2014 8:57 AM CDT [facility] [place] RBC 5.06 3.93 - 5.22 M/uL 11/14/2014 8:57 AM CDT [facility] HEMOGLOBIN 15.3 11.2 - 15.7 g/dL 11/14/2014 8:57 AM CDT [facility] HEMATOCRIT 44.0 34.1 - 44.9 % 11/14/2014 8:57 AM CDT [facility] MCV 87.0 79.4 - 94.8 fL 11/14/2014 8:57 AM CDT [facility] MCH 30.2 25.6 - 32.2 pg 11/14/2014 8:57 AM CDT [facility] MCHC 34.8 32.2 - 35.5 g/dL 11/14/2014 8:57 AM CDT [facility] RDW 13.3 11.0 - 14.5 % 11/14/2014 8:57 AM CDT [facility] RDW-STDEV 42.1 36.9 - 56.9 fL 11/14/2014 8:57 AM CDT [facility] PLATELETS 202 163 - 337 K/uL 11/14/2014 8:57 AM CDT [facility] MPV 11.0 10.0 - 14.8 fL 11/14/2014 8:57 AM CDT [facility] NEUTROPHILS 74(H) 34 - 71 % 11/14/2014 8:57 AM CDT [facility] [place] LYMPHOCYTES 10(L) 19 - 52 % 11/14/2014 8:57 AM CDT [employer] [facility] [place] MONOCYTES 12 5 - 13 % 11/14/2014 8:57 AM CDT [facility] [place] EOSINOPHILS 3 1 - 6 % 11/14/2014 8:57 AM CDT [facility] [place] [place] BASOPHILS 1 0 - 1 % 11/14/2014 8:57 AM CDT [facility] [place] NEUTROPHIL ABSOLUTE 4.77 1.56 - 6.13 K/uL 11/14/2014 8:57 AM CDT [facility] [place] LYMPHOCYTE ABSOLUTE 0.66(L) 1.20 - 3.40 K/uL 11/14/2014 8:57 AM CDT [facility] [place] MONOCYTE ABSOLUTE 0.74(H) 0.24 - 0.36 K/uL 11/14/2014 8:57 AM CDT [facility] [place] EOSINOPHIL ABSOLUTE 0.21 0.04 - 0.36 K/uL 11/14/2014 8:57 AM CDT [facility] [place] BASOPHILS ABSOLUTE 0.03 0.01 - 0.08 K/uL 11/14/2014 8:57 AM CDT [facility] [place] IMMATURE GRANULOCYTES 0 % 11/14/2014 8:57 AM CDT [facility] [place] IMMATURE GRANULOCYTES ABSOLUTE 0.02 K/uL 11/14/2014 8:57 AM CDT [facility] Blood Venipuncture - L ab Collect / Unknown 11/14/2014 7:00 AM CDT 11/14/2014 7:30 AM CDT Aye Flores MD HEMATOLOGY ORDERABLES Final Result [facility] - [facility] # [id number] [address] [place] [id number] * (ABNORMAL) LIPID PANEL (11/14/2014 7:00 AM CDT) CHOLESTEROL 138 130 - 200 mg/dL 11/14/2014 9:19 AM CDT [employer] [facility] [place] TRIGLYCERIDE 83 30 - 200 mg/dL 11/14/2014 9:19 AM CDT [facility] [place] HDL 34(L) 35 - 80 mg/dL 11/14/2014 9:19 AM CDT [facility] [place] LDL CALCULATED 87 0 - 100 mg/dL 11/14/2014 9:19 AM CDT [facility] [place] NON-HDL CHOLESTEROL 104 mg/dL 11/14/2014 9:19 AM [facility] code-[facility]ation [facility] Blood Venipuncture - L ab Collect / Unknown 11/14/2014 7:00 AM CDT 11/14/2014 7:30 AM CDT [facility]AT[facility] - 11/14/2014 9:19 AM CDT TOTAL CHOLESTEROL mg/dL Desirable <200 Borderline high 200-239 High >=240 TRIGLYCERIDES mg/dL Normal <150 Borderline high 150-199 High 200-499 Very high >=500 HDL CHOLESTEROL mg/dL Low <40 Normal 40-60 Desirable >60 LDL CHOLESTEROL mg/dL Optimal <100 Low risk 100-129 Borderline high 130-159 High 160-189 Very high >=190 NON HDL CHOLESTEROL mg/dL Desirable <130 Borderline high 130-159 High 160-189 Very high >=190 Based on AHA/NCEP Guidelines Aye Flores MD CHEMISTRY ORDERABLES Final Result [facility] code-laboration [facility] CLIA # [id number] [address] [place] [address] * (ABNORMAL) COMPREHENSIVE METABOLIC PANEL (11/14/2014 7:00 AM CDT) SODIUM 139 136 - 145 mmol/L 11/14/2014 9:19 AM [facility] [employer] code-laboration [facility] POTASSIUM 4.1 3.5 - 5.1 mmol/L 11/14/2014 9:19 AM [facility] code-laboration [facility] CHLORIDE 103 98 - 107 mmol/L 11/14/2014 9:19 AM [facility] code-laboration [facility] CO2 25 21 - 32 mmol/L 11/14/2014 9:19 AM [facility] code-laboration [facility] CALCIUM 9.0 8.5 - 10.1 mg/dL 11/14/2014 9:19 AM [facility] code-laboration [facility] BUN 13 7 - 18 mg/dL 11/14/2014 9:19 AM [facility] code-laboration [facility] CREATININE 0.97 0.60 - 1.30 mg/dL 11/14/2014 9:19 AM [facility] code-laboration [facility] GLUCOSE 102 74 - 106 mg/dL 11/14/2014 9:19 AM [facility] code-laboration [facility] TOTAL PROTEIN 7.4 6.4 - 8.2 g/dL 11/14/2014 9:19 AM [facility] code-laboration [facility] ALBUMIN 3.6 3.4 - 5.0 g/dL 11/14/2014 9:19 AM [facility] code-laboration [facility] BILIRUBIN TOTAL 0.4 0.2 - 1.0 mg/dL 11/14/2014 9:19 AM [facility] code-laboration [facility] ALKALINE PHOSPHATASE 131(H) 46 - 116 U/L 11/14/2014 9:19 AM [facility] code-laboration [facility] AST 35 15 - 37 U/L 11/14/2014 9:19 AM [facility] code-laboration [facility] ALT 32 30 - 65 U/L 11/14/2014 9:19 AM [facility] code-laboration [facility] GFR 58(L) >=60 mL/min/1.7 3 sq meter 11/14/2014 9:19 AM [facility] code-laboration [facility] Comment: eGFR has not been validated for use in the elderly (> 70 years of age), women, patients with serious co-morbid conditions, or persons with extremes of body size or muscle mass and should also be interpreted with caution in patients with acute kidney failure, dialysis dependent patients, patients reporting exceptional dietary intake (e.g. vegetarian diet, high protein diets, creatine supplementation), and patients with severe liver disease. Based on National Kidney Disease Education Program If patient is , please refer to the GFR result. GFR, >60 >=60 mL/min/1.7 3 sq meter 11/14/2014 9:19 AM [facility] [employer] [facility] ANION GAP 11(L) 12 - 20 mmol/L 11/14/2014 9:19 AM [facility] Blood Venipuncture - L ab Collect / Unknown 11/14/2014 7:00 AM CDT 11/14/2014 7:30 AM T [facility] [employer] [facility] - 11/14/2014 9:19 AM CDT Effective 04/11/2014, the Alkaline Phosphatase test method and reference range have changed. Please take this into consideration when interpreting results prior to or after this date. us Aye Flores MD CHEMISTRY ORDERABLES Final Result [facility] [place] [facility] CLIA # [id number] [address] [address] documented in this encounter Visit Diagnoses Not on filedocumented in this encounter Care Teams Skilled Labor Relationship Specialty Start Date End Date Grady Felton MD [address] [phone] PCP - General Family Practice 03/03/20 documented as of this encounter
--- OUTSIDE RECORDS SUMMARY | 2025-05-20 23:38 | XMS_ITS | Encounter Summary ---
Author Organization [facility] Address [address] [place] [address] Care Team Providers Care Mincemeat Maker Name Role Phone Grady Felton MD Primary Care Provider +1 -[phone] Encounter Details Date Type Department Care Team (Latest Contact Info) Description 08/13/2004 Outpatient Historical [facility] Medicine [place] [address] [address] Kanchan Romo MD NO ADDRESS ON FILE ACUTE URI NOS (Primary Dx); ACUTE BRONCHITIS; HYPERTENSION NOS Social History Tobacco Use Types Packs/Day Years Used Date Smoking Tobacco: Never Assessed Comments Unknown Sex and Gender Information Value Date Recorded Sex Assigned at Not on file 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
--- OUTSIDE RECORDS SUMMARY | 2025-05-20 23:38 | XMS_ITS | Encounter Summary ---
Author Organization [facility] Address [address] [place] [address] Care Team Providers Care Ripper Operator Name Role Phone Grady Felton MD Primary Care Provider +1 -[phone] Encounter Details Date Type Department Care Team (Latest Contact Info) Description 07/16/2002 Outpatient Historical [facility] Cardiac Dental Hygiene Administrative Assistant [address] [place] [address] Noah Peralta MD NO ADDRESS ON FILE ABNORMAL CARDIOVASC STUDY NEC (Primary Dx) Social History Tobacco Use Types Packs/Day Years Used Date Smoking Tobacco: Never Assessed Comments Unknown Sex and Gender Information Value Date Recorded Sex Assigned at Not on file 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
--- OUTSIDE RECORDS SUMMARY | 2025-05-20 23:38 | XMS_ITS | Encounter Summary ---
Author Organization [facility] Address [address] [place] [address] Care Team Providers Care Director Learning Name Role Phone Grady Felton MD Primary Care Provider +1 -[phone] Encounter Details Date Type Department Care Team (Late st Contact Info) Description 04/23/2005 Outpatient Historical [facility] Tayler Mccrarynn [place] [address] [place] [phone] Vic Gregory MD [address] [facility] [address] [place] [address] UTERINE LEIOMYOMA NOS (Primary Dx); Issue repeat prescript Social History Tobacco Use Types Packs/Day Years Used Date Smoking Tobacco: Never Assessed Comments Unknown Sex and Gender Information Value Date Recorded Sex Assigned at Not on file 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
--- OUTSIDE RECORDS SUMMARY | 2025-05-20 23:38 | XMS_ITS | Encounter Summary ---
Author Organization [email or web address] Address [address] [place] [address] Care Team Providers Care Marketing Assistant Manager Name Role Phone Grady Felton MD Primary Care Provider +1 -[phone] Encounter Details Date Type Department Care Team (Latest Contact Info) Description 11/26/[address] 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
--- OUTSIDE RECORDS SUMMARY | 2025-05-20 23:38 | XMS_ITS | Encounter Summary ---
Author Organization [facility] Address [address] [place] [address] Care Team Providers Care Scrap Handler Name Role Phone Grady Felton MD Primary Care Provider +1 -[phone] Encounter Details Date Type Department Care Team (Latest Contact Info) Description 11/26/2003 Outpatient Historical [facility] [address] [facility] 120 [place] [address] Erendira Fam MD NO ADDRESS ON FILE SCREENING MAMM-MAILG NEOPL-OTHER (Primary Dx) Social History Tobacco Use Types Packs/Day Years Used Date Smoking Tobacco: Never Assessed Comments Unknown Sex and Gender Information Value Date Recorded Sex Assigned at Not on file Legal Sex Female 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
--- OUTSIDE RECORDS SUMMARY | 2025-05-20 23:38 | XMS_ITS | Encounter Summary ---
Author Organization [facility] Address [address] [place] [address] Care Team Providers Care Enterprise Resource Analyst Name Role Phone Grady Felton MD Primary Care Provider +1 -[phone] Encounter Details Date Type Department Care Team ([facility] st Contact Info) Description 02/22/2005 Outpatient [facility] [address] [place] [address] Vic Gregory MD [address] [address] SCREENING MAMM-MAILG NEOPL-OTHER (Primary Dx) Social History Tobacco Use Types Packs/Day Years Used Date Smoking Tobacco: Never Assessed Comments Unknown Sex and Gender Information Value Date Recorded Sex Assigned at Not on file Legal Sex Female 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
--- OUTSIDE RECORDS SUMMARY | 2025-05-20 23:38 | XMS_ITS | Encounter Summary ---
Author Organization [facility] Address [address] [facility] [place] [place] [address] Care Team Providers Care Vice President Commercial Bank Name Role Phone Grady Felton MD Primary Care Provider +1 -[phone] Encounter Details Date Type Department Care Team (Latest Contact Info) Description 02/22/2005 Outpatient [facility] [address] 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
--- OUTSIDE RECORDS SUMMARY | 2025-05-20 23:38 | XMS_ITS | Encounter Summary ---
Author Organization [facility] Address [address] [place] [address] Care Team Providers Care Fish Dressing Machine Feeder Name Role Phone Grady Felton MD Primary Care Provider +1 [phone] Encounter Details Date Type Department Care Team (Latest Contact Info) Description 03/22/2006 Outpatient Historical [facility] [place] [address] [address] Cr Marina DO NO ADDRESS ON FILE Abdominal Pain, Unspecified Site (Primary Dx); Abdominal Tenderness, Unspecified Site Social History Tobacco Use Types Packs/Day Years Used Date Smoking Tobacco: Never Assessed Comments Unknown Sex and Gender Information Value Date Recorded Sex Assigned at Not on file Legal Sex Female 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
--- OUTSIDE RECORDS SUMMARY | 2025-05-20 23:38 | XMS_ITS | Encounter Summary ---
Author Organization [facility] Address [address] [place] [address] Care Team Providers Care Custom Tailor Apprentice Name Role Phone Grady Felton MD Primary Care Provider +1 [phone] Encounter Details Date Type Department Care Team (Latest Contact Info) Description 12/11/2003 Outpatient Historical [facility] [place] [address] [address] Cr Marina DO NO ADDRESS ON FILE CERVICALGIA (Primary Dx); Pain in limb; HYPERTENSION NOS Social History Tobacco Use Types Packs/Day Years Used Date Smoking Tobacco: Never Assessed Comments Unknown Sex and Gender Information Value Date Recorded Sex Assigned at Not on file Legal Sex Female 4:52 AM SUPERVISORY AIDE Gender Identity Not on file Sexual Orientation Not on file documented as of this encounter Plan of Treatment Not on file documented as of this encounter Visit Diagnoses Diagnosis Cervicalgia- Primary Pain in limb Pain in soft tissues of limb Unspecified essential hypertension documented in this encounter Care Teams Custom Tailor Apprentice Relationship Specialty Start Date End Date Grady Felton MD [address] [phone] PCP - General Family Practice 03/03/20 documented as of this encounter
--- OUTSIDE RECORDS SUMMARY | 2025-05-20 23:38 | XMS_ITS | Encounter Summary ---
Author Organization [facility] Address [address] [place] [address] Care Team Providers Care Technical Support 1 Software Engineer Name Role Phone Grady Felton MD Primary Care Provider +1 [phone] Encounter Details Date Type Department Care Team (Late st Contact Info) Description 06/25/2002 Outpatient Historical [facility] [address] [place] [phone] Vic Gregory MD [address] [facility] 120 [place] [address] Routine medical exam (Primary Dx); Gynecologic examination; SYMPTOMATIC FEMALE CLIMACTERIC STATE; Irregular menstruation Social History Tobacco Use Types Packs/Day Years Used Date Smoking Tobacco: Never Assessed Comments Unknown Sex and Gender Information Value Date Recorded Sex Assigned at Not on file Legal Sex Female 4:52 AM GAS ENGINE OPERATOR GENERATORS Gender Identity Not on file Sexual Orientation Not on file documented as of this encounter Plan of Treatment Not on file documented as of this encounter Visit Diagnoses Diagnosis Routine medical exam- Primary Routine general medical examination at a health care facility Gynecologic examination Gynecological examination Symptomatic menopausal or female climacteric states Irregular menstruation Irregular menstrual cycle documented in this encounter Care Teams Technical Support 1 Software Engineer Relationship Specialty Start Date End Date Grady Felton MD [address] [facility] 60 [place] [phone] PCP - General Family Practice 03/03/20 documented as of this encounter
--- OUTSIDE RECORDS SUMMARY | 2025-05-20 23:38 | XMS_ITS | Encounter Summary ---
Author Organization [facility] Address [address] [place] [address] Care Team Providers Care Nurse Ldr Name Role Phone Grady Felton MD Primary Care Provider +1 -[phone] Encounter Details Date Type Department Care Team (Latest Contact Info) Description 07/19/2006 Outpatient Historical [facility] Medicine [place] [address] [phone] Ines Lynn, LAND EXAMINER [address] [place] [address] Herpes Zoster without Mention of Complication (Primary Dx) Social History Tobacco Use Types Packs/Day Years Used Date Smoking Tobacco: Never Assessed Comments Unknown Sex and Gender Information Value Date Recorded Sex Assigned at Not on file Legal Sex Female 4:52 AM BRAKE REPAIRER AIR Gender Identity Not on file Sexual Orientation Not on file documented as of this encounter Plan of Treatment Not on file documented as of this encounter Visit Diagnoses Diagnosis Herpes zoster without mention of complication- Primary documented in this encounter Care Teams Nurse Ldr Relationship Specialty Start Date End Date Grady Felton MD [address] [address] PCP - General Family Practice 03/03/20 documented as of this encounter
--- OUTSIDE RECORDS SUMMARY | 2025-05-20 23:38 | XMS_ITS | Encounter Summary ---
Author Organization [facility] Address [address] [place] [address] Care Team Providers Care Round Cutter Operator Name Role Phone Grady Felton MD Primary Care Provider +1 -[phone] Encounter Details Date Type Department Care Team (Latest Contact Info) Description 08/29/2001 Outpatient Historical [facility] Family Medicine- [address] [place] [address] Cr Marina, NO ADDRESS ON FILE ACUTE BRONCHITIS (Primary Dx) Social History Tobacco Use Types Packs/Day Years Used Date Smoking Tobacco: Never Assessed Comments Unknown Sex and Gender Information Value Date Recorded Sex Assigned at Not on file Legal Sex Female 4:52 AM BIOMECHANICAL ENGINEER Gender Identity Not on file Sexual Orientation Not on file documented as of this encounter Plan of Treatment Not on file documented as of this encounter Visit Diagnoses Diagnosis Acute bronchitis- Primary documented in this encounter Care Teams Round Cutter Operator Relationship Specialty Start Date End Date Grady Felton MD [address] [facility] [address] [place] [address] PCP - General Family Practice 03/03/20 documented as of this encounter
--- OUTSIDE RECORDS SUMMARY | 2025-05-20 23:38 | XMS_ITS | Encounter Summary ---
Author Organization [facility] Address [address] [place] [address] Care Team Providers Care Band Head Saw Operator Name Role Phone Grady Felton MD Primary Care Provider +1 -[phone] Encounter Details Date Type Department Care Team (Latest Contact Info) Description 07/23/2005 Outpatient Historical [facility] Medicine [place] [address] [phone] Dung Pérez NP NO ADDRESS ON FILE ACUTE SINUSITIS NOS (Primary Dx) Social History Tobacco Use Types Packs/Day Years Used Date Smoking Tobacco: Never Assessed Comments Unknown Sex and Gender Information Value Date Recorded Sex Assigned at Not on file Legal Sex Female 4:52 AM CLINICAL SOCIAL WORK THERAPIST Gender Identity Not on file Sexual Orientation Not on file documented as of this encounter Plan of Treatment Not on file documented as of this encounter Visit Diagnoses Diagnosis Acute sinusitis, unspecified- Primary documented in this encounter Care Teams Band Head Saw Operator Relationship Specialty Start Date End Date Grady Felton MD [address] [phone] PCP - General Family Practice 03/03/20 documented as of this encounter
--- OUTSIDE RECORDS SUMMARY | 2025-05-20 23:38 | XMS_ITS | Encounter Summary ---
Author Organization [facility] Address [address] [place] [address] Care Team Providers Care Special Diet Cook Name Role Phone rGady Felton MD Primary Care Provider +1 -[phone] Encounter Details Date Type Department Care Team ([facility] st Contact Info) Description 04/23/2005 Outpatient Historical [facility]-[place] [address] [place] [address] Social History Tobacco Use Types Packs/Day Years Used Date Smoking Tobacco: Never Assessed Comments Unknown Sex and Gender Information Value Date Recorded Sex Assigned at Not on file Legal Sex Female 4:52 AM RIB CHOPPER Gender Identity Not on file Sexual Orientation Not on file documented as of this encounter Plan of Treatment Not on file documented as of this encounter Visit Diagnoses Not on filedocumented in this encounter Care Teams Special Diet Cook Relationship Specialty Start Date End Date Grady Felton MD [address] [place] [address] PCP - General Family Practice 03/03/20 documented as of this encounter
--- OUTSIDE RECORDS SUMMARY | 2025-05-20 23:38 | XMS_ITS | Encounter Summary ---
Author Organization [facility] Address [address] [place] [address] Care Team Providers Care Therapy Teacher Name Role Phone Grady Felton MD Primary Care Provider +1 -[phone] Encounter Details Date Type Department Care Team (Latest Contact Info) Description 07/11/2001 Outpatient Historical [facility] Medicine [place] [address] [address] Cr Marina DO NO ADDRESS ON FILE CONTUSION LEG NOS (Primary Dx); SPRAIN OF ANKLE NOS Social History Tobacco Use Types Packs/Day Years Used Date Smoking Tobacco: Never Assessed Comments Unknown Sex and Gender Information Value Date Recorded Sex Assigned at Not on file Legal Sex Female 4:52 AM OLAP DEVELOPER Gender Identity Not on file Sexual Orientation Not on file documented as of this encounter Plan of Treatment Not on file documented as of this encounter Visit Diagnoses Diagnosis Contusion of unspecified part of lower limb- Primary Sprain of ankle, unspecified site documented in this encounter Care Teams Therapy Teacher Relationship Specialty Start Date End Date Grady Felton MD [address] [phone] PCP - General Family Practice 03/03/20 documented as of this encounter
--- OUTSIDE RECORDS SUMMARY | 2025-05-20 23:38 | XMS_ITS | Encounter Summary ---
Author Organization [facility] Address [address] [facility] [address] [place] [place] [address] Care Team Providers Care Almond Paste Molder Name Role Phone Grady Felton MD Primary Care Provider +1 -[phone] Encounter Details Date Type Department Care Team ([facility] st Contact Info) Description 06/22/2018 Ancillary Orders [facility] [address] [facility] 120 [place] [address] Aye Flores MD [address] [address] Post-menopause Social History Tobacco Use Types Packs/Day Years Used Date Smoking Tobacco: Every Day Cigarettes 0.5 20 Started: 11/06/1994; Last attempted to quit: 11/06/2014 Smokeless Tobacco: Never Comments:chews nicorite gum Alcohol Use Standard Drinks/Week Comments No 0 (1 standard drink = 0.6 oz pur e alcohol) Comments No Sex and Gender Information Value Date Recorded Sex Assigned at Not on file Legal Sex Female 4:52 AM 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
--- OUTSIDE RECORDS SUMMARY | 2025-05-20 23:38 | XMS_ITS | Encounter Summary ---
Author Organization [facility] Address [address] [place] [address] Care Team Providers Care Retail Banker Name Role Phone Grady Felton MD Primary Care Provider +1 -[phone] Encounter Details Date Type Department Care Team ([facility] st Contact Info) Description 04/21/2004 Outpatient Historical [facility] [address] [place] [address] Misael Sanchez MD [address] [place] [address] Social History Tobacco Use Types Packs/Day Years Used Date Smoking Tobacco: Never Assessed Comments Unknown Sex and Gender Information Value Date Recorded Sex Assigned at Not on file Legal Sex Female 4:52 AM CURB HOP Gender Identity Not on file Sexual Orientation Not on file documented as of this encounter Plan of Treatment Not on file documented as of this encounter Visit Diagnoses Not on filedocumented in this encounter Care Teams Retail Banker Relationship Specialty Start Date End Date Grady Felton MD [address] [facility] 60 [place] [phone] PCP - General Family Practice 03/03/20 documented as of this encounter
--- OUTSIDE RECORDS SUMMARY | 2025-05-20 23:38 | XMS_ITS | Encounter Summary ---
Author Organization [facility] Address [address] [place] [address] Care Team Providers Care Genetic Physician Name Role Phone Grady Felton MD Primary Care Provider +1 -[phone] Reason for Referral * Outpatient Services (Routine) - Closed Specialty Diagnoses / Procedures Referred By Contcaroline t Referred To Contact Diagnoses Other screening mammogram Procedures MAMMO DIGITAL SCREEN BILAT Cr Marina DO NO ADDRESS ON FILE Referral ID Status Reason Start Date Expiration Date Visits Re quested Visits Authorized [id number] Closed 04/02/2010 09/29/2010 1 1 Encounter Details Date Type Department Care Team ([facility] st Contact Info) Description 04/02/2010 Ancillary Orders [facility] [address] [phone] Cr Marina DO NO ADDRESS ON FILE Other Screening Mammogram Social History Tobacco Use Types Packs/Day Years Used Date Smoking Tobacco: Every Day Alcohol Use Standard Drinks/Week Comments No 0 (1 standard drink = 0.6 oz pur e alcohol) Comments No Sex and Gender Information Value Date Recorded Sex Assigned at Not on file Legal Sex Female 4:52 AM CENTER REP Gender Identity Not on file Sexual Orientation Not on file documented as of this encounter Plan of Treatment Not on file documented as of this encounter Results * MAMMO DIGITAL SCREEN BILAT (04/22/2010 10:05 AM CDT) Anatomical Region Laterality Modality Breast Bilateral Mammography Narrative 04/23/2010 1:18 PM CDT Bilateral Mammogram Reason for Exam: Screening Comparison: Comparison is made with the prior exam(s) dated 01.22.06 Findings: Bilateral CC and MLO views were obtained. This examination was reviewed with the aid of a computer-aided detection system(CAD). The breast tissue density is fatty. No significant new findings since the prior mammogram(s). Procedure Note Kt Doran MD - 04/23/2010 Bilateral Mammogram Reason for Exam: Screening Comparison: Comparison is made with the prior exam(s) dated 01.22.06 Findings: Bilateral CC and MLO views were obtained. This examination was reviewed with the aid of a computer-aided detectionsystem(CAD). The breast tissue density is fatty. No significant new findings since the prior mammogram(s). Cr Marina DO MAMMO ORDERABLES Final Result documented in this encounter Visit Diagnoses Diagnosis Other screening mammogram Other screening mammogram documented in this encounter Care Teams Genetic Physician Relationship Specialty Start Date End Date Grady Felton MD [address] [phone] PCP - General Family Practice 03/03/20 documented as of this encounter
--- OUTSIDE RECORDS SUMMARY | 2025-05-20 23:38 | XMS_ITS | Encounter Summary ---
Author Organization [facility] Address [address] [place] [address] Care Team Providers Care Cadmium Plater Name Role Phone Grady Felton MD Primary Care Provider +1 -[phone] Encounter Details Date Type Department Care Team ([facility] st Contact Info) Description 06/25/2002 Outpatient Historical [facility] Breast [place] [address] [place] [phone] Vic Gregory MD [address] [address] SCREENING MAMM-MAILG NEOPL-OTHER (Primary Dx) Social History Tobacco Use Types Packs/Day Years Used Date Smoking Tobacco: Never Assessed Comments Unknown Sex and Gender Information Value Date Recorded Sex Assigned at Not on file Legal Sex Female 4:52 AM NET PROGRAMMER Gender Identity Not on file Sexual Orientation Not on file documented as of this encounter Plan of Treatment Not on file documented as of this encounter Visit Diagnoses Diagnosis Other screening mammogram- Primary documented in this encounter Care Teams Cadmium Plater Relationship Specialty Start Date End Date Grady Felton MD [address] [facility] [address] [place] [address] PCP - General Family Practice 03/03/20 documented as of this encounter
--- OUTSIDE RECORDS SUMMARY | 2025-05-20 23:38 | XMS_ITS | Encounter Summary ---
Author Organization [facility] Address [address] [place] [address] Care Team Providers Care Concrete Boom Operator Name Role Phone Grady Felton MD Primary Care Provider +1 -[phone] Encounter Details Date Type Department Care Team ([facility] st Contact Info) Description 12/16/2003 Outpatient Historical [facility] Imaging Services-[place] [address] [place] [address] Social History Tobacco Use Types Packs/Day Years Used Date Smoking Tobacco: Never Assessed Comments Unknown Sex and Gender Information Value Date Recorded Sex Assigned at Not on file Legal Sex Female 4:52 AM TRIBAL JUDGE Gender Identity Not on file Sexual Orientation Not on file documented as of this encounter Plan of Treatment Not on file documented as of this encounter Visit Diagnoses Not on filedocumented in this encounter Care Teams Concrete Boom Operator Relationship Specialty Start Date End Date Grady Felton MD [address] [place] [address] PCP - General Family Practice 03/03/20 documented as of this encounter
--- OUTSIDE RECORDS SUMMARY | 2025-05-20 23:38 | XMS_ITS | Encounter Summary ---
Author Organization [facility] Address [address] [place] [address] Care Team Providers Care Police Crime Scene Technician Name Role Phone Grady Felton MD Primary Care Provider +1 -[phone] Encounter Details Date Type Department Care Team (Latest Contact Info) Description 06/25/2002 Outpatient Historical [facility] Breast [place] [address] [place] [address] Compa Cameron MD NO ADDRESS ON FILE SCREENING MAMM-MAILG NEOPL-OTHER (Primary Dx) Social History Tobacco Use Types Packs/Day Years Used Date Smoking Tobacco: Never Assessed Comments Unknown Sex and Gender Information Value Date Recorded Sex Assigned at Not on file Legal Sex Female 4:52 AM EQUIPMENT VALIDATION ENGINEER Gender Identity Not on file Sexual Orientation Not on file documented as of this encounter Plan of Treatment Not on file documented as of this encounter Visit Diagnoses Diagnosis Other screening mammogram- Primary documented in this encounter Care Teams Police Crime Scene Technician Relationship Specialty Start Date End Date Grady Felton MD [address] [facility] [address] [place] [phone] PCP - General Family Practice 03/03/20 documented as of this encounter
--- OUTSIDE RECORDS SUMMARY | 2025-05-20 23:38 | XMS_ITS | Encounter Summary ---
Author Organization [facility] Address [address] [place] [address] Care Team Providers Care Terrazzo Worker Apprentice Name Role Phone Grady Felotn MD Primary Care Provider +1 [phone] Encounter Details Date Type Department Care Team ([facility] st Contact Info) Description 06/22/[address] [facility] [address] [facility] [address] [place] [address] Aye Flores MD [address] [address] Post-menopause Social History Tobacco Use [...] on file Legal Sex Female 4:52 AM MICROSTRATEGY DEVELOPER Gender Identity Not on file Sexual Orientation Not on file Occupation Industry Job Start Date Job End Date Not on file Not on file Not on file Not on file documented as of this encounter Plan of Treatment Not on file documented as of this encounter Visit Diagnoses Diagnosis Post-menopause Asymptomatic postmenopausal status (age-related) (natural) documented in this encounter Care Teams Terrazzo Worker Apprentice Relationship Specialty Start Date End Date Grady Felton MD [address] [address] PCP - General Family Practice 03/03/20 documented as of this encounter
--- OUTSIDE RECORDS SUMMARY | 2025-05-20 23:38 | XMS_ITS | Encounter Summary ---
Author Organization [facility] Address [address] [place] [address] Care Team Providers Care Ore Miner Name Role Phone Grady Felton MD Primary Care Provider +1 [phone] Encounter Details Date Type Department Care Team (Late st Contact Info) Description 06/25/2002 Outpatient Historical [facility] OBFUNMILAYONMurray Mccrarynn [place] [address] [place] [phone] Vic Gregory MD [address] [facility] [address] [place] [address] Social History Tobacco Use Types Packs/Day Years Used Date Smoking Tobacco: Never Assessed Comments Unknown Sex and Gender Information Value Date Recorded Sex Assigned at Not on file Legal Sex Female 4:52 AM REGIONAL GEODETIC ADVISOR Gender Identity Not on file Sexual Orientation Not on file documented as of this encounter Plan of Treatment Not on file documented as of this encounter Visit Diagnoses Not on filedocumented in this encounter Care Teams Ore Miner Relationship Specialty Start Date End Date Grady Felton MD [address] [facility] [address] [place] [address] PCP - General Family Practice 03/03/20 documented as of this encounter
--- OUTSIDE RECORDS SUMMARY | 2025-05-20 23:38 | XMS_ITS | Encounter Summary ---
Author Organization [facility] Address [address] [place] [address] Care Team Providers Care Bottle Washing Machine Operator Name Role Phone Grady Felton MD Primary Care Provider [phone] [phone] Encounter Details Date Type Department Care Team (Latest Contact Info) Description 12/16/2003 Outpatient Historical [facility] [place] [address] [place] [address] Cr [place], NO ADDRESS ON FILE SPINAL DISORDERS NEC (Primary Dx) Social History Tobacco Use Types Packs/Day Years Used Date Smoking Tobacco: Never Assessed Comments Unknown Sex and Gender Information Value Date Recorded Sex Assigned at Not on file Legal Sex Female 4:52 AM MENDING CARRIER Gender Identity Not on file Sexual Orientation Not on file documented as of this encounter Plan of Treatment Not on file documented as of this encounter Visit Diagnoses Diagnosis Other allied disorders of spine- Primary documented in this encounter Care Teams Bottle Washing Machine Operator Relationship Specialty Start Date End Date Grady Felton MD [address] [facility] [address] [place] [phone] PCP - General Family Practice 03/03/20 documented as of this encounter
--- OUTSIDE RECORDS SUMMARY | 2025-05-20 23:38 | XMS_ITS | Encounter Summary ---
Author Organization [facility] Address [address] [place] [address] Care Team Providers Care Shuttle Van Driver Name Role Phone Grady Felton MD Primary Care Provider [phone] [phone] Encounter Details Date Type Department Care Team ([facility] st Contact Info) Description 06/16/2001 Outpatient Historical [facility] [place] [address] [place] [address] Mine Bermudez MD NO ADDRESS ON FILE SCREENING MAMM-MAILG NEOPL-OTHER (Primary Dx) Social History Tobacco Use Types Packs/Day Years Used Date Smoking Tobacco: Never Assessed Comments Unknown Sex and Gender Information Value Date Recorded Sex Assigned at Not on file Legal Sex Female 4:52 AM STATION MECHANIC Gender Identity Not on file Sexual Orientation Not on file documented as of this encounter Plan of Treatment Not on file documented as of this encounter Visit Diagnoses Diagnosis Other screening mammogram- Primary documented in this encounter Care Teams Shuttle Van Driver Relationship Specialty Start Date End Date Grady Felton MD [address] [facility] 60 [place] [address] PCP - General Family Practice 03/03/20 documented as of this encounter
--- OUTSIDE RECORDS SUMMARY | 2025-05-20 23:38 | XMS_ITS | Encounter Summary ---
Author Organization [facility] Address [address] [place] [address] Care Team Providers Care Clinical Services Consultant Name Role Phone Grady Felton MD Primary Care Provider +1 [phone] Encounter Details Date Type Department Care Team (Latest Contact Info) Description 11/02/2002 Outpatient Historical [facility] Medicine [place] [address] [phone] rC Marina DO NO ADDRESS ON FILE ACUTE BRONCHITIS (Primary Dx) Social History Tobacco Use Types Packs/Day Years Used Date Smoking Tobacco: Never Assessed Comments Unknown Sex and Gender Information Value Date Recorded Sex Assigned at Not on file Legal Sex Female 4:52 AM CAUSTIC LOADER Gender Identity Not on file Sexual Orientation Not on file documented as of this encounter Plan of Treatment Not on file documented as of this encounter Visit Diagnoses Diagnosis Acute bronchitis- Primary documented in this encounter Care Teams Clinical Services Consultant Relationship Specialty Start Date End Date Grady Felton MD [address] [phone] PCP - General Family Practice 03/03/20 documented as of this encounter
--- OUTSIDE RECORDS SUMMARY | 2025-05-20 23:38 | XMS_ITS | Encounter Summary ---
Author Organization [facility] Address [address] [place] [address] Care Team Providers Care Application Coordinator Name Role Phone Grady Felton MD Primary Care Provider [phone] [phone] Encounter Details Date Type Department Care Team (Late st Contact Info) Description 02/22/2005 Outpatient Historical [facility] OBFUNMILAYONKiran Mccrarynn [place] [address] [place] [phone] Vic Gregory MD [address] [facility] 120 [place] [address] Social History Tobacco Use Types Packs/Day Years Used Date Smoking Tobacco: Never Assessed Comments Unknown Sex and Gender Information Value Date Recorded Sex Assigned at Not on file 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
--- OUTSIDE RECORDS SUMMARY | 2025-05-20 23:38 | XMS_ITS | Encounter Summary ---
Author Organization [facility] Address [address] [place] [address] Care Team Providers Care Service Now Developer Name Role Phone Grady Felton MD Primary Care Provider [phone] [phone] Encounter Details Date Type Department Care Team ([facility] st Contact Info) Description 06/03/1998 Outpatient Historical [facility] Khoi III, Mango Urias MD [address] [facility] [address] [place] [address] Abdominal pain, unspecified site (Primary Dx) Social History Tobacco Use Types Packs/Day Years Used Date Smoking Tobacco: Never Assessed Comments Unknown Sex and Gender Information Value Date Recorded Sex Assigned at Not on file 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
--- OUTSIDE RECORDS SUMMARY | 2025-05-20 23:38 | XMS_ITS | Encounter Summary ---
Author Organization [facility] Address [address] [place] [address] Care Team Providers Care Physician Practice Manager Name Role Phone Grady Felton MD Primary Care Provider [phone] [phone] Encounter Details Date Type Department Care Team ([facility] st Contact Info) Description 06/16/[address] 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
--- OUTSIDE RECORDS SUMMARY | 2025-05-20 23:38 | XMS_ITS | Encounter Summary ---
Author Organization [facility] Address [address] [place] [address] Care Team Providers Care Pattern Technician Name Role Phone Grady Felton MD Primary Care Provider [phone] [phone] Reason for Referral * Outpatient Services (Routine) - Closed Specialty Diagnoses / Procedures Referred By Contac t Referred To Contact Radiology Diagnoses Breast screening Procedures MAMMO SCRN BILAT 3D JOHN W OR WO CAD MAMMO SCREEN BILAT W OR WO CAD Aye Flores MD [address] [address] Phone: tel: fax: [facility] [address] [address] Phone: tel: fax: Referral ID Status Reason Start Date Expiration Date Visits Re quested Visits Authorized [id number] Closed 04/07/2018 05/08/2019 1 1 Encounter Details Date Type Department Care Team (Late st Contact Info) Description 06/22/2018 Ancillary Orders [facility] Family Medicine [place] [address] [address] Aye Flores MD [address] [address] Breast screening Social History Tobacco Use Types Packs/Day Years [...] on file 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 Gender Identity Not on file Sexual Orientation Not on file Occupation Industry Job Start Date Job End Date Not on file Not on file Not on file Not on file documented as of this encounter Plan of Treatment Not on file documented as of this encounter Results * MAMMO SCRN BILAT 3D JOHN W OR WO CAD (06/23/2018 2:31 PM BRANCH STORE MANAGER) Anatomical Region Laterality Modality Breast Bilateral Mammography Narrative 06/27/2018 4:51 PM BRANCH STORE MANAGER Bilateral Digital Mammogram with CAD and 3D Tomography Reason for Exam: Screening Comparison: Compared to: 12/16/2016 MAMMO SCREEN BILAT W OR WO CAD, 06/19/2015 MAMMO DIGITAL SCREEN BILAT, 05/09/2014 MAMMO DIGITAL SCREEN BILAT, 10/10/2012 MAMMO DIGITAL SCREEN BILAT, and 04/22/2010 MAMMO DIGITAL SCREEN BILAT Technique: 3D MLO [...] significant new findings since the prior mammogram(s). Aye Flores MD MAMMO ORDERABLES Final Resu lt documented in this encounter Visit Diagnoses Diagnosis Breast screening Breast screening, unspecified Breast screening Breast screening, unspecified documented in this encounter Care Teams Pattern Technician Relationship Specialty Start Date End Date Grady Felton MD [address] [facility] [address] [place] [phone] PCP - General Family Practice 03/03/20 documented as of this encounter
--- OUTSIDE RECORDS SUMMARY | 2025-05-20 23:38 | XMS_ITS | Encounter Summary ---
Author Organization [facility] Address [address] [place] [address] Care Team Providers Care Settlement Agent Name Role Phone Grady Felton MD Primary Care Provider [phone] [phone] Encounter Details Date Type Department Care Team (Latest Contact Info) Description 11/13/2003 Outpatient Historical [facility] Medicine [place] [address] [phone] Cr Marina DO NO ADDRESS ON FILE ABDOMINAL PAIN EPIGASTRIC (Primary Dx) Social History Tobacco Use Types Packs/Day Years Used Date Smoking Tobacco: Never Assessed Comments Unknown Sex and Gender Information Value Date Recorded Sex Assigned at Not on file 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
--- OUTSIDE RECORDS SUMMARY | 2025-05-20 23:38 | XMS_ITS | Clinical Summary ---
Author Organization [facility] tone Address [address] [place] [address] Care Team Providers Care Portrait Painter Name Role Phone Grady Felton MD Primary Care Provider [phone] Allergies Active Allergy Reactions Criticality Noted Date Comments Ciprofloxacin Other (See Comments) 06/11/2015 Mouth swelling/tingling Clarithromycin Swelling Medium 12/22/2009 Of throat Metronidazole Other (See Comments) 06/11/2015 Mouth swelling Penicillins Rash Low 11/29/2008 Medications Magnesium 250 mg Oral Tab Take 250 mg by mouth daily. Active aspirin (ECOTRIN EC) 81 mg Tablet, Delayed Release (E.C.) Take 1 Tab by mouth daily. 30 Tab 0 4 Active multivitamin (DAILY-JESUS) tablet Take 1 Tablet by mouth daily. Active turmeric root extract 500 mg Capsule Take by mouth daily. Active cholecalciferol, Vitamin D3, 5,000 unit Capsule Take 5,000 Units by mouth daily. Active acetaminophen (TYLENOL) 500 mg tablet Take 500 mg by mouth every 6 hours as needed. Active fluticasone propionate (FLONASE) 50 mcg/spray [place], Suspension nasal inhaler Administer 2 Sprays in each nostril daily. 16 Gram 3 9 Active diclofenac sodium (VOLTAREN) 1 % gel Apply to affected area 4 times daily. Pt orders thru Marcie Active ascorbic acid, vitamin C, (VITAMIN C) 500 mg tablet Take 500 mg by mouth daily. Active pseudoephedrine (Sudogest) 30 mg tabletIndication s:Environmental and seasonal allergies Take 1 Tablet (30 mg) by mouth every 4 hours as needed for Congestion. 30 Tablet 1 0 Active CALCIUM-MAG OXIDE-VITAMIN D3 ORAL Take 1 Tablet by mouth daily. Active potassium chloride (KLOR-CON) 10 mEq Extended Release tabletIndication s:HTN (hypertension), benign Take 1 Tablet (10 mEq) by mouth daily with breakfast. 90 Tablet 4 1 Active pantoprazole (PROTONIX) 40 mg Tablet, Delayed Release (E.C.)Indication s:Gastroesophage al reflux disease without esophagitis Take 1 Tablet (40 mg) by mouth daily. 90 Tablet 4 1 Active hydroCHLOROthiaz daisy 50 mg tabletIndication s:HTN (hypertension), benign Take 1 Tablet (50 mg) by mouth daily. 90 Tablet 4 1 Active clotrimazole-bet amethasone (LOTRISONE) 1-0.05 % CreamIndications :Dermatitis Apply to affected area 2 times daily. 45 Gram 1 1 Active Active Problems Problem Noted Date Diagnosed Date Gastroesophageal reflux disease without esophagi tis 10/28/2020 Chronic pain syndrome 03/03/2020 Primary osteoarthritis involving multiple joints 03/03/2020 HTN (hypertension), benign 03/14/2019 Tobacco abuse, in remission 03/14/2019 Myopia of both eyes with astigmatism 10/17/2017 PVD (posterior vitreous detachment), bilateral 0 10/17/2017 Pseudophakia of both eyes 10/17/2017 Keratoconjunctivitis, bilateral 10/17/2017 Varicose veins of bilateral lower extremities wi th pain 01/01/2016 Numbness and tingling of left arm and leg 2013 Equilibrium disorder 12/04/2013 Other seborrheic keratosis 07/29/2011 Facial numbness 12/12/2009 Resolved Problems Problem Noted Date Diagnosed Date Resolved Date Active smoker 02/17/2014 03/14/2019 Hyperlipidemia 06/15/2013 03/14/2019 Sebaceous cyst 07/29/2011 10/28/2020 Sebaceous cyst 07/29/2011 10/28/2020 Neoplasm of uncertain behavior of skin 07/19/2011 10/28/2020 Acute URI 12/12/2009 11/27/2013 Immunizations Immunization Administration Dates Next Due (PNEUMOVAX 23)(50 YRS UP) PN EUMOCOCCAL POLYSACCHARIDE (PPV23) 0.5 ML, IM 05/14/2020 (SPIKEVAX) (12 YRS UP PRIMAR Y SERIES) COVID-19 VACCINE - MRNA-1273(PF) 100 MCG/0.5 ML IM SUSP 10/20/2020,09/22/2020 (TDVAX)(7 YRS UP) TETANUS AN D DIPHTHERIA TOXOIDS, ADSORBED (2 LF OF TETANUS TOXOID AND 2 LF OF DIPHTHERIA TOXOID), 0.5ML (PF), IM 07/04/2001 INFLUENZA VACCINE HIGH DOSE QUADRIVALENT 65 YR UP PF IM 04/30/2020 INFLUENZA VACCINE QUADRIVALE NT 3 YR UP PF IM 05/10/2016 Influenza Seasonal Unspecifi ed Formulation IM 06/09/2017,05/17/2013,05/29/2012,05/31,06/01/1999 Influenza Vaccine High Dose 65+ Yrs IM 9,05/02/2018,05/02/2015 Influenza Vaccine Split 3+ Yrs IM 05/08/2014 Zoster Vaccine Live SQ 07/23/2015 Family History Medical History Relation Name Comments Heart Disease Father Breast Cancer Maternal Aunt Diabetes Maternal Grandmother Breast Cancer Mother age 62 Macular Degen Mother Breast Cancer Paternal Cousin Arthritis-rheumatoid Paternal Grandmother Cancer Paternal Uncle BLADDER CANCE R Amblyopia Neg Hx Blindness Neg Hx Detachment/Tears Neg Hx Glaucoma Neg Hx Hypertension Neg Hx Ovarian Cancer Neg Hx Strabismus Neg Hx Stroke Neg Hx Thyroid Disease Neg Hx Relation Name Status Comments Daughter no children Alive Father Maternal Aunt Maternal Grandmother Mother Alive Paternal Cousin Paternal Grandmother Paternal Uncle Sister Alive Social History Tobacco Use Types Packs/Day Years Used Date Smoking Tobacco: Former Cigarettes 0.5 20 1 09/08/1997 - 07/08/2018 Smokeless Tobacco: Never Tobacco Cessation:Ready to Q uit: No; Counseling Given: No Comments:chews nicorite gum Alcohol Use Standard Drinks/Week Comments No 0 (1 standard drink = 0.6 oz pur e alcohol) Comments No Sex and Gender Information Value Date Recorded Sex Assigned at Not on file 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 Gender Identity Not on file Sexual Orientation Not on file Occupation Industry Job Start Date Job End Date Not on file Not on file Not on file Not on file Last Filed Vital Signs Vital Sign Reading Time Taken Comments Blood Pressure 130/78 10/28/2020 8:53 AM CDT Pulse 82 10/28/2020 8:53 AM CDT Temperature 36.6 C (97.8 F) 10/28/2020 8:53 AM CDT Respiratory Rate 16 10/28/2020 8:53 AM CDT Oxygen Saturation 97% 10/28/2020 8:53 AM CDT Inhaled Oxygen Concentration - - Weight 96.6 kg (213 lb) 10/28/2020 8:53 AM CDT Height 170.2 cm (5' 7 ) 10/28/2020 8:53 AM CDT Body Mass Index 33.36 10/28/2020 8:53 AM CDT Plan of Treatment Health Maintenance Due Date Last Done Comments COLORECTAL CANCER SCREENING (AUTO ORDER) 1998 COLORECTAL SCREENING 1998 Flex Sig/CT Colonography Q 5 years 1998 DTAP/TDAP/TD VACCINES (1 - Tdap) 07/05/2001 07/04/20 RSV VACCINE (60+ or ) (1 - Risk 60-74 years 1-dose series) 2013 ZOSTER VACCINE (1 of 2) 09/17/2015 07/23/2015 Traditional Medicare (ACO) A nnual Wellness Visit 04/08/2019 04/07/2018 FIT/FOBT Q 1 YEAR (AUTO ORDER) 04/11/2019 0 04/11/2018, 04/11/2018, 10/06/2012, Additional history exists FIT/FOBT Q 1 year 04/11/2019 04/11/2018 COVID-19 Vaccine (3 - Modern a risk series) 11/17/2020 10/20/2020, 09/22/2020 PNEUMOCOCCAL VACCINE 50+ YEA RS (2 of 2 - PCV) 05/14/2021 05/14/2020 BREAST CANCER SCREENING 04/23/2023 04/23/20 22, 11/06/2020, 07/01/2019, Additional history exists Colorectal Cancer Screening 05/19/2023 FIT-DNA Q 3 years 05/19/2023 05/19/2020 FIT/ DNA Q 3 YEARS (AUTO ORDER) 05/19/2023 0, 05/19/2020 INFLUENZA VACCINE (#1) 2025 0, 05/11/2019, 05/02/2018, Additional history exists Colorectal Cancer Screening (AUTO ORDER) 05/19/2025 FLEX SIG/CT COLONOGRAPHY Q 5 YEARS (AUTO ORDER) 05/19/2025 05/19/2020, 05/19/2020 OSTEOPOROSIS SCREENING 06/16/2025 06/16/2020, 2006 Medical Devices Implanted Type Area Control Clerk Food And Beverage Device Identifier Shelf Expiration Date Model / Serial / Lot Lens Io Tecnis 1pc 23 [id number] - [id number] Implanted:Qty: 1 on 02/06/2013 by Cory Singleton MD at [facility] Right: Eye [employer] 12/07/2016 [id number] / [id number] / Lens Io Tecnis 1pc 21 [id number] - [id number] Implanted:Qty: 1 on 02/20/2013 by Cory Singleton MD at [facility] Left: Eye [employer] 12/21/2016 [id number] / [id number] / Procedures Procedure Name Priority Date/Time Associated Diagnosis Comments MAMMO SCREEN BILAT W OR WO CAD Routine 11/06/2020 12:15 PM CDT Breast cancer screening by mammogram COLON CANCER SCREEN, STOOL DNA Routine 05/19/2020 2:15 PM CDT Encounter for colorectal cancer screening OCCULT BLOOD IMMUNOASSAY, COLORECTAL SCREEN Routine 04/11/2018 10:22 AM CDT Colon cancer screening from Last 3 Months or Most Recently Relevant to Health Maintenance Results * MAMMO SCREEN BILAT W OR WO CAD (11/06/2020 12:15 PM CDT) Anatomical Region Laterality Modality Breast Bilateral Mammography Narrative 11/09/2020 3:11 PM CDT Bilateral Mammogram Reason for Exam: Screening Comparison: No comparisons were made when reading this study. Findings: Bilateral CC and MLO views were obtained. This examination was reviewed with the aid of a computer-aided detection system(CAD). Breast Composition: The breasts are almost entirely fatty. There are no suspicious masses, areas of architectural distortions, or microcalcifications to suggest malignancy. No significant new findings since the prior mammogram(s). Impression: Negative screening mammogram. Recommendation: Routine annual follow-up Overall Assessment: Birads Category 1: Negative Grady Felton MD MAMMO ORDERABLES Final Re sult * COLON CANCER SCREEN, STOOL DNA (05/19/2020 2:15 PM CDT) COLOGUARD RESULT Negative Not Applicable [employer] [facility] Comment: A negative result indicates a low likelihood that a colorectal cancer (CRC) or an advanced adenoma (adenomatous polyps with more advanced pre-malignant features) is present. The chance that a person with a negative Cologuard test has a colorectal cancer is less than 1 in 1500 (negative predictive value >99.9%) or has an advanced adenoma is less than 5.3% (negative predictive value 94.7%). These data are based on a prospective cross-sectional screening study of 10,000 individuals at average risk for colorectal cancer who were screened with both Cologuard and colonoscopy. (Loi Meyer et al, N Engl J Med 2014;370(14):2779-2248) The normal value (reference range) for this assay is negative. COLOGUARD RE-SCREENING RECOMMENDATION: Periodic routine colorectal cancer screening is an important part of preventive healthcare for asymptomatic persons at average risk for colorectal cancer. Following a negative Cologuard result, the [place] Cancer Society and U.S. Multi-Society Task Force screening guidelines recommend a Cologuard re-screening interval of 3 years. References: [place] Cancer Society (ACS). Colorectal cancer prevention and early detection. [place], [place]: [place] Cancer Society; [updated 2015Nov 29]. https://www.cancer.org/cancer/gcvpn-xbreac-oqveue/fsxjakwki-djcsnzhjo-zyzedgj/ac s-rec ommendations.html. Accessed April 07, 2018; Manuel DK, Berry CR, Carmen SalmeronK, Colorectal Cancer Screening: Recommendations for Physicians and Patients from the U.S. Multi-Society Task Force on Colorectal Cancer Screening, Am J Gastroenterology 2017; 112:7113-4180. TEST TYPE: Composite algorithmic analysis of stool DNA-biomarkers with hemoglobin immunoassay. Quantitative values of individual biomarkers are not reportable and are not associated with individual biomarker result reference ranges. PRECAUTIONS AND LIMITATIONS: Cologuard is intended for colorectal cancer screening of adults of either sex, 45 years or older, who are at average-risk for colorectal cancer (CRC). Cologuard has been approved for use by the U.S. FDA. Cologuard may produce a false negative or false positive result. A negative Cologuard test result does not guarantee the absence of CRC or advanced adenoma (pre-cancer). Patients with a negative Cologuard test result should be advised to continue participating in a colorectal cancer screening program. The screening interval for Cologuard is currently recommended at an interval of every 3 years by the [place] Cancer Society and U.S. Multi-Society Task Force. A false positive result occurs when Cologuard produces a positive result, even though a colonoscopy may not find colorectal cancer or precancerous polyps. The performance of Cologuard has been established in a cross sectional study (i.e., single point in time) of average-risk adults aged 50-84. Cologuard performance in patients ages 45 to 49 years was estimated by sub-group analysis of near-age groups. Cologuard performance data in a 10,000 patient pivotal study using colonoscopy as the reference method can be accessed at the following location: www.Set.fm/results. Additional description of the Cologuard test process, warnings and precautions can be found at www.cologuardtest.com. Rx only. Stool STOOL SPECIMEN / Unknown 05/19/2020 2:15 PM CDT 05/21/2020 8:26 PM CDT us [place] TRUCK MECHANIC BODY FLUIDS AND STOOLS Final Res ult EXPO CLIA # [id number] [address] , [address] [place] [address] * OCCULT BLOOD IMMUNOASSAY, COLORECTAL SCREEN (04/11/2018 10:22 AM CDT) Pathologist [facility] OCCULT BLOOD, STOOL Negative Negative 04/12/2018 11:15 AM CDT [facility] Stool STOOL SPECIMEN / Unknown Collection / Unknown 04/11/2018 10:22 AM CDT 04/11/2018 8:14 PM CDT Aye Flores MD BODY FLUIDS AND STOOLS Mary ontiveros Result [facility] [place] [place]# [id number] [address] [place] [address] from Last 3 Months or Most Recently Relevant to Health Maintenance Insurance MEDICARE PART A AND B [facility] RX [employer]ICA PLANS (INTERNAL) [facility] Internal Plans RX MEDIMPACT Member Subscriber Plan / Payer (Ef fective for All Dates) Name:Nanette Gao Relation to Subscriber:Self Name:Nanette Gao Payer ID:Not on file Group ID:[id number] Type:RX Commercial Address: [place] MEDICARE PART A AND B [facility] Advance Directives For more information, please contact: [phone] Documents on File Type Date Recorded Patient Pm Technician Expl anation Advance Directive POA 12/02/2021 2:05 PM A dvance Directive POA Advance Directive Living Will 12/02/2021 2:04 PM Advance Directive Living Will Advance Directive Living Will 11/27/2013 3:11 PM Advance Directive Living Will * Full Code (Latest Code Status on File) Date Activated Date Inactivated Comments 02/17/2014 3:08 PM 02/18/2014 7:14 PM * Full Code Date Activated Date Inactivated Comments 02/20/2013 6:20 AM 02/20/2013 9:50 AM * Full Code Date Activated Date Inactivated Comments 02/06/2013 10:49 AM 02/06/2013 2:12 PM Care Teams Portrait Painter Relationship Specialty Start Date End Date Grady Felton MD [address] [phone] PCP - General Family Practice 03/03/20
--- OUTSIDE RECORDS SUMMARY | 2025-05-20 23:38 | XMS_ITS | Encounter Summary ---
Author Organization [facility] Address [address] [place] [address] Care Team Providers Care Director Distribution Name Role Phone Grady Felton MD Primary Care Provider [phone] Encounter Details Date Type Department Care Team ([facility] Contact Info) Description 01/05/2014 Ancillary Orders [facility] Services [place] [address] [place] [id number] Social History Tobacco Use Types Packs/Day Years Used Date Smoking Tobacco: Every Day Cigarettes 0.5 20 Smokeless Tobacco: Never Alcohol Use Standard Drinks/Week Comments No 0 (1 standard drink = 0.6 oz pur e alcohol) Comments No Sex and Gender Information Value Date Recorded Sex Assigned at Not on file 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 Gender Identity Not on file Sexual Orientation Not on file Occupation Industry Job Start Date Job End Date Not on file Not on file Not on file Not on file documented as of this encounter Plan of Treatment Not on file documented as of this encounter Procedures Procedure Name Priority Date/Time Associated Diagnosis Comments CBC WITH DIFFERENTIAL Routine 01/05/2014 10:27 AM CDT ALT Routine 01/05/2014 10:27 AM CDT TSH Routine 01/05/2014 10:27 AM CDT IRON LEVEL Routine 01/05/2014 10:27 AM CDT HEMOGLOBIN A1C Routine 01/05/2014 10:27 AM CDT CREATININE Routine 01/05/2014 10:27 AM CDT LIPID PANEL Routine 01/05/2014 10:27 AM CDT documented in this encounter Results * IRON LEVEL (01/05/2014 10:27 AM CDT) IRON 66 50 - 170 ug/dL 01/05/2014 6:39 PM CDT [facility] [employer] ([employer]) [facility] Blood Collection / Unknown 01/05/2014 10:27 AM CDT 01/05/2014 10:27 AM CDT External Provider Mtnv CHEMISTRY ORDERABLES Mary ontiveros Result [facility] [employer] ([employer]) [facility] CLIA # [id number] [address] [place] [address] * CREATININE (01/05/2014 10:27 AM CDT) CREATININE 0.90 0.60 - 1.30 mg/dL 01/05/2014 12:00 PM CDT [facility] [employer] ([employer]) [facility] GFR >60 >=60 mL/min/1.7 3 sq meter 01/05/2014 12:00 PM CDT [facility] [employer] ([employer]) [facility] Comment: eGFR has not been validated for [...] GFR, >60 >=60 mL/min/1.7 3 sq meter 01/05/2014 12:00 PM CDT [facility] Blood Collection / Unknown 01/05/2014 10:27 AM CDT 01/05/2014 10:27 AM CDT External Provider Mtnv CHEMISTRY ORDERABLES Mary l Result [facility] [place] CLIA # [id number] [address] [place] [address] * (ABNORMAL) ALT (01/05/2014 10:27 AM CDT) ALT 17(L) 30 - 65 U/L 01/05/2014 12:00 PM CDT [facility] [place] Blood Collection / Unknown 01/05/2014 10:27 AM CDT 01/05/2014 10:27 AM CDT External Provider Nhn CHEMISTRY ORDERABLES Mary l Result Performing Organization Address City/[facility] Co de Phone Number [facility] [place] CLIA # [id number] [address] [place] [address] * (ABNORMAL) CBC WITH DIFFERENTIAL (01/05/2014 10:27 AM CDT) WBC 6.9 4.0 - 10.0 K/uL 01/05/2014 11:01 AM CDT [facility] [place] RBC 5.00 3.93 - 5.22 M/uL 01/05/2014 11:01 AM CDT [facility] [place] HEMOGLOBIN 15.3 11.2 - 15.7 g/dL 01/05/2014 11:01 AM CDT [facility] [place] HEMATOCRIT 44.6 34.1 - 44.9 % 01/05/2014 11:01 AM CDT [facility] [place] MCV 89.2 79.4 - 94.8 fL 01/05/2014 11:01 AM CDT [facility] [place] MCH 30.6 25.6 - 32.2 pg 01/05/2014 11:01 AM CDT [facility] [place] MCHC 34.3 32.2 - 35.5 g/dL 01/05/2014 11:01 AM CDT [facility] [place] RDW 13.4 11.0 - 14.5 % 01/05/2014 11:01 AM CDT [facility] [place] RDW-STDEV 43.0 36.9 - 56.9 fL 01/05/2014 11:01 AM CDT [facility] [place] PLATELETS 222 163 - 337 K/uL 01/05/2014 11:01 AM CDT [facility] [place] MPV 10.8 10.0 - 14.8 fL 01/05/2014 11:01 AM CDT [facility] [place] NEUTROPHILS 66 34 - 71 % 01/05/2014 11:01 AM CDT [facility] [place] LYMPHOCYTES 21 19 - 52 % 01/05/2014 11:01 AM CDT [facility] [place] MONOCYTES 11 5 - 13 % 01/05/2014 11:01 AM CDT [facility] [place] EOSINOPHILS 2 1 - 6 % 01/05/2014 11:01 AM CDT [facility] [place] BASOPHILS 0 0 - 1 % 01/05/2014 11:01 AM CDT [facility] [place] NEUTROPHIL ABSOLUTE 4.54 1.56 - 6.13 K/uL 01/05/2014 11:01 AM CDT [facility] [place] LYMPHOCYTE ABSOLUTE 1.44 1.20 - 3.40 K/uL 01/05/2014 11:01 AM CDT [facility] [place] MONOCYTE ABSOLUTE 0.75(H) 0.24 - 0.36 K/uL 01/05/2014 11:01 AM CDT [facility] [place] EOSINOPHIL ABSOLUTE 0.15 0.04 - 0.36 K/uL 01/05/2014 11:01 AM CDT [facility] [place] BASOPHILS ABSOLUTE 0.03 0.01 - 0.08 K/uL 01/05/2014 11:01 AM CDT [facility] [place] IMMATURE GRANULOCYTES 0 % 01/05/2014 11:01 AM CDT [facility] [place] IMMATURE GRANULOCYTES ABSOLUTE 0.02 K/uL 01/05/2014 11:01 AM CDT [facility] [place] Blood Collection / Unknown 01/05/2014 10:27 AM CDT 01/05/2014 10:27 AM CDT us External Provider Mtnv HEMATOLOGY ORDERABLES Fin al Result [facility] [employer]) [facility] CLIA # [id number] [address] [place] [address] * TSH (01/05/2014 10:27 AM CDT) Pathologist [facility] TSH 2.11 0.30 - 4.80 uIU/mL 01/05/2014 12:00 PM CDT [facility] [employer] [facility] Blood Collection / Unknown 01/05/2014 10:27 AM CDT 01/05/2014 10:27 AM CDT us External Provider Mtnv CHEMISTRY ORDERABLES Mary l Result Performing Organization Address [facility]/ZIP Co de Phone Number [facility] [employer] [facility] CLIA # [id number] [address] [place] [address] * HEMOGLOBIN A1C (01/05/2014 10:27 AM CDT) Pathologist [facility] HEMOGLOBIN A1C 5.6 4.5 - 6.2 % 01/05/2014 11:44 AM CDT [facility] [employer] [facility] EST. AVG GLUCOSE, A1C 114 mg/dL 01/05/2014 11:44 AM CDT [facility] [employer] ([employer]) [facility] Blood Collection / Unknown 01/05/2014 10:27 AM CDT 01/05/2014 10:27 AM CDT us External Provider Mtnv CHEMISTRY ORDERABLES Mary l Result Performing Organization Address City/[facility]/ZIP Co de Phone Number [facility] [employer] [facility] CLIA # [id number] [address] [place] [address] * (ABNORMAL) LIPID PANEL (01/05/2014 10:27 AM CDT) CHOLESTEROL 187 130 - 200 mg/dL 01/05/2014 12:00 PM T [facility] [employer] [facility] TRIGLYCERIDE 91 30 - 200 mg/dL 01/05/2014 12:00 PM CDT [facility] [employer]) [facility] HDL 45 35 - 80 mg/dL 01/05/2014 12:00 PM CDT [facility] [employer]) [facility] LDL CALCULATED 124(H) 0 - 100 mg/dL 01/05/2014 12:00 PM CDT [facility] Blood Collection / Unknown 01/05/2014 10:27 AM CDT 01/05/2014 10:27 AM CDT Narrative [facility] - 01/05/2014 12:00 PM CDT TOTAL CHOLESTEROL mg/dL Desirable <200 Borderline high 200-239 High >=240 TRIGLYCERIDES mg/dL Normal <150 Borderline high 150-199 High 200-499 Very high >=500 HDL CHOLESTEROL mg/dL Low <40 Normal 40-60 Desirable >60 LDL CHOLESTEROL mg/dL Optimal <100 Low risk 100-129 Borderline high 130-159 High 160-189 Very high >=190 Based on AHA/NCEP Guidelines us External Provider Mtnv CHEMISTRY ORDERABLES Mary l Result Performing Organization Address City/State/[facility] Co de Phone Number [facility] [employer]) [facility] CLIA # [id number] [address] [address] documented in this encounter Visit Diagnoses Not on filedocumented in this encounter Care Teams Director Distribution Relationship Specialty Start Date End Date Grady Felton MD [address] [phone] PCP - General Family Practice 03/03/20 documented as of this encounter
--- OUTSIDE RECORDS SUMMARY | 2025-05-20 23:38 | XMS_ITS | Encounter Summary ---
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
--- OUTSIDE RECORDS SUMMARY | 2025-05-20 23:38 | XMS_ITS | Encounter Summary ---
Author Organization [facility] Address [address] [place] [address] Care Team Providers Care Scrap Baller Name Role Phone Grady Felton MD Primary Care Provider [phone] [phone] Encounter Details Date Type Department Care Team ([facility] Contact Info) Description 12/25/2011 Ancillary Orders [facility] Laboratory Services [place] [address] [place] [address] Social History Tobacco Use Types Packs/Day Years Used Date Smoking Tobacco: Every Day Smokeless Tobacco: Never Alcohol Use Standard Drinks/Week Comments No 0 (1 standard drink = 0.6 oz pur e alcohol) Comments No Sex and Gender Information Value Date Recorded Sex Assigned at Not on file 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 Gender Identity Not on file Sexual Orientation Not on file documented as of this encounter Plan of Treatment Not on file documented as of this encounter Procedures Procedure Name Priority Date/Time Associated Diagnosis Comments COMPREHENSIVE METABOLIC PANEL Routine 12/25/2011 8:12 AM CDT documented in this encounter Results * (ABNORMAL) COMPREHENSIVE METABOLIC PANEL (12/25/2011 8:12 AM CDT) SODIUM 142 136 - 145 mmol/L 12/25/2011 4:07 PM CDT [facility] [place] POTASSIUM 3.6 3.5 - 5.1 mmol/L 12/25/2011 4:07 PM CDT [facility] CHLORIDE 104 98 - 107 mmol/L 12/25/2011 4:07 PM CDT [facility] [place] CO2 29 21 - 32 mmol/L 12/25/2011 4:07 PM [facility] CALCIUM 9.3 8.5 - 10.1 mg/dL 12/25/2011 4:07 PM [facility] BUN 12 7 - 18 mg/dL 12/25/2011 4:07 PM [facility] CREATININE 0.80 0.60 - 1.30 mg/dL 12/25/2011 4:07 PM [facility] GLUCOSE 55(L) 74 - 106 mg/dL 12/25/2011 4:07 PM [facility] TOTAL PROTEIN 7.3 6.4 - 8.2 g/dL 12/25/2011 4:07 PM [facility] ALBUMIN 3.6 3.4 - 5.0 g/dL 12/25/2011 4:07 PM [facility] BILIRUBIN TOTAL 0.4 0.2 - 1.0 mg/dL 12/25/2011 4:07 PM [facility] ALKALINE PHOSPHATASE 142(H) 50 - 136 U/L 12/25/2011 4:07 PM [facility] AST 10(L) 15 - 37 U/L 12/25/2011 4:07 PM [facility] ALT 30 30 - 65 U/L 12/25/2011 4:07 PM [facility] GFR 74 >=60 mL/min/1.7 3 sq meter 12/25/2011 4:07 PM [facility] GFR, 89 >=60 mL/min/1.7 3 sq meter 12/25/2011 4:07 PM [facility] Blood specimen (specimen) 12/25/2011 8:12 AM CDT 12/25/2011 9:38 AM [facility] - 12/25/2011 4:07 PM [facility] eGFR has not been validated for use in the elderly (> 70 years of age), women, patients with serious co-morbid conditions, or persons with extremes of body size or muscle mass and should also be interpreted with caution in patients with acute kidney failure, dialysis dependant patients, patients reporting exceptional dietary intake (e.g. vegetarian diet, high protein diets, creatine supplementation), and patients with severe liver disease. Based on National Kidney Disease Education Program Cr Marina DO CHEMISTRY ORDERABLES Final Resu lt [facility] [place] CLIA # [id number] [address] [address] documented in this encounter Visit Diagnoses Not on filedocumented in this encounter Care Teams Scrap Baller Relationship Specialty Start Date End Date Grady Felton MD [address] [phone] PCP - General Family Practice 03/03/20 documented as of this encounter
--- OUTSIDE RECORDS SUMMARY | 2025-05-20 23:38 | XMS_ITS | Encounter Summary ---
Author Organization [facility] Address [address] [place] [address] Care Team Providers Care Coroner Technician Name Role Phone Grady Felton MD Primary Care Provider [phone] [phone] Encounter Details Date Type Department Care Team (Latest Contact Info) Description 03/03/2004 Outpatient Historical 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
--- OUTSIDE RECORDS SUMMARY | 2025-05-20 23:38 | XMS_ITS | Encounter Summary ---
Author Organization [facility] Address [address] [place] [address] Care Team Providers Care Recep Name Role Phone Grady Felton MD Primary Care Provider [phone] [phone] Encounter Details Date Type Department Care Team (Latest Contact Info) Description 08/17/2004 Outpatient Historical [facility] Medicine [place] [address] [phone] Cr Marina DO NO ADDRESS ON FILE ACUTE BRONCHITIS (Primary Dx) Social History Tobacco Use Types Packs/Day Years Used Date Smoking Tobacco: Never Assessed Comments Unknown Sex and Gender Information Value Date Recorded Sex Assigned at Not on file 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
--- OUTSIDE RECORDS SUMMARY | 2025-05-20 23:38 | XMS_ITS | Encounter Summary ---
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); ABNORMAL WEIGHT GAIN Social History Tobacco Use Types Packs/Day Years Used Date Smoking Tobacco: Never Assessed Comments Unknown Sex and Gender Information Value Date Recorded Sex Assigned at Not on file Legal Sex Female 4:52 AM PICU NURSE Gender Identity Not on file Sexual Orientation Not on file documented as of this encounter Plan of Treatment Not on file documented as of this encounter Visit Diagnoses Diagnosis Routine gynecological examination- Primary Abnormal weight gain documented in this encounter Care Teams Counter Clerk Relationship Specialty Start Date End Date Grady Felton MD [address] [facility] [place] [address] PCP - General Family Practice 03/03/20 documented as of this encounter
--- OUTSIDE RECORDS SUMMARY | 2025-05-20 23:38 | XMS_ITS | Encounter Summary ---
Author Organization [facility] Address [address] [place] [address] Care Team Providers Care Plating Engineer Name Role Phone Grady Felton MD Primary Care Provider [phone] [phone] Encounter Details Date Type Department Care Team ([facility] st Contact Info) Description 02/11/2003 Outpatient Historical [facility] Dermatology- [address] [place] [place] 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
--- OUTSIDE RECORDS SUMMARY | 2025-05-20 23:38 | XMS_ITS | Encounter Summary ---
Author Organization [facility] Address [address] [place] [address] Care Team Providers Care Computer Systems Technician Name Role Phone Grady Felton MD Primary Care Provider [phone] [phone] Encounter Details Date Type Department Care Team (Latest Contact Info) Description 07/03/2002 Outpatient Historical [facility] Medicine [place] [address] [phone] Cr Marina DO NO ADDRESS ON FILE CHEST PAIN NOS (Primary Dx) Social History Tobacco Use Types Packs/Day Years Used Date Smoking Tobacco: Never Assessed Comments Unknown Sex and Gender Information Value Date Recorded Sex Assigned at Not on file 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
--- OUTSIDE RECORDS SUMMARY | 2025-05-20 23:38 | XMS_ITS | Encounter Summary ---
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
--- OUTSIDE RECORDS SUMMARY | 2025-05-20 23:38 | XMS_ITS | Encounter Summary ---
Author Organization [facility] Address [address] [place] [address] Care Team Providers Care Library Aide Name Role Phone Grady Felton MD Primary Care Provider [phone] [phone] Encounter Details Date Type Department Care Team (Latest Contact Info) Description 07/04/2001 Outpatient Historical [facility] Medicine [place] [address] [address] Cr Marina DO NO ADDRESS ON FILE LOWER LEG INJURY NOS (Primary Dx); SPRAIN OF ANKLE NOS Social History Tobacco Use Types Packs/Day Years Used Date Smoking Tobacco: Never Assessed Comments Unknown Sex and Gender Information Value Date Recorded Sex Assigned at Not on file 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
--- OUTSIDE RECORDS SUMMARY | 2025-05-20 23:38 | XMS_ITS | Encounter Summary ---
Author Organization [facility] Address [address] [place] [address] Care Team Providers Care Assembler Insulator Name Role Phone Grady Felton MD Primary Care Provider [phone] [phone] Encounter Details Date Type Department Care Team (Latest Contact Info) Description 12/10/2005 Outpatient Historical [facility] Medicine [place] [address] [address] Dung Pérez NP NO ADDRESS ON FILE Acute Sinusitis, Unspecified (Primary Dx); Acute Pharyngitis; Allergic Rhinitis, Cause Unspecified Social History Tobacco Use Types Packs/Day Years Used Date Smoking Tobacco: Never Assessed Comments Unknown Sex and Gender Information Value Date Recorded Sex Assigned at Not on file 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
--- OUTSIDE RECORDS SUMMARY | 2025-05-20 23:39 | XMS_ITS | Clinical Summary ---
Author Organization [facility] [place] Address [address] [place] [address] Care Team Providers Care Zipper Setter Lockstitch Name Role Phone Grady Felton MD Primary Care Provider [phone] Allergies Active Allergy Reactions Criticality Noted Date Comments Ciprofloxacin Other (See Comments) 06/11/2015 Mouth swelling/tingling Clarithromycin Swelling Medium 12/22/2009 Of throat Metronidazole Other (See Comments) 06/11/2015 Mouth swelling Penicillins Rash Low 11/29/2008 Sulfamethoxazole Nausea and Vomiting Low 08/01/2022 Trimethoprim Nausea and Vomiting Low 08/01/2022 Medications turmeric root extract 500 mg Capsule Take by mouth daily. 8 Active cholecalciferol, Vitamin D3, 125 mcg (5,000 unit) Capsule Take 5,000 Units by mouth daily. 8 Active acetaminophen (TYLENOL) 500 mg tablet Take 500 mg by mouth every 6 hours as needed. 9 Active mupirocin (BACTROBAN) 2 % Ointment 1 Active multivitamin (DAILY-JESUS) tablet Take 1 Tablet by mouth daily. Active Magnesium 250 mg Tablet Take 250 mg by mouth daily. Active nebulizerIndicatio ns:COVID-19 virus detected Length of need 99 months Nebulizer with compressor, Kit: Disposable Nebulizer Kit, 2 per month, filters , areosol mask: No. Name of Medication Albuterol 1 Each 1 Active triamcinolone acetonide (KENALOG) 0.5 % OintmentIndication s:Rash of unknown etiology Apply to affected area 2 times daily. 15 Gram 1 2 Active albuterol (PROVENTIL,VENTOLI N) 2.5 mg /3 mL (0.083 %) Solution for NebulizationIndica tions:COVID-19 virus detected USE 1 VIAL IN NEBULIZER EVERY 6 HOURS NEEDED FOR SHORTNESS OF BREATH 75 mL 2 Active diltiaZEM (CARDIZEM CD) 180 mg Controlled Delivery 24 hour capsule TAKE 1 CAPSULE BY MOUTH ONCE DAILY IN THE MORNING 2 Active Eliquis 5 mg tablet Take 5 mg by mouth 2 times daily. 3 Active hydroCHLOROthiazid e 50 mg tabletIndications: HTN (hypertension), benign Take 1 tablet by mouth once daily 90 Tablet 3 3 Active furosemide (LASIX) 20 mg tablet 3 Active diltiaZEM (CARDIZEM) 30 mg tablet TAKE 1 TABLET BY MOUTH EVERY 8 HOURS NEEDED FOR HR OVER 110 BPM 4 Active potassium chloride (K-TAB) 20 mEq Extended Release tablet 4 Active diclofenac sodium (VOLTAREN) 1 % gelIndications:Odalis nani osteoarthritis involving multiple joints Apply 4 Grams to affected area 2 times daily as needed for Pain. 100 Gram 11 5 Active fluticasone propionate (FLONASE) 50 mcg/spray [place], Suspension nasal inhalerIndications :Equilibrium disorder Administer 2 Sprays in each nostril daily. 48 Gram 3 5 Active Active Problems Problem Noted Date Diagnosed Date Declined influenza vaccine 05/02/2024 Raynauds disease 05/26/2023 Varicose veins of both lower extremities 023 Knee injury, right, initial encounter 05/23/2023 Atrial fibrillation 08/11/2022 Gastroesophageal reflux disease without esophagi tis 10/28/2020 Primary osteoarthritis involving multiple joints 03/03/2020 Chronic pain syndrome 03/03/2020 Tobacco abuse, in remission 03/14/2019 HTN (hypertension), benign 03/14/2019 Myopia of both eyes with astigmatism 10/17/2017 Keratoconjunctivitis, bilateral 10/17/2017 Pseudophakia of both eyes 10/17/2017 PVD (posterior vitreous detachment), bilateral 0 10/17/2017 Varicose veins of bilateral lower extremities [...] skin 07/19/2011 10/28/2020 Acute URI 12/12/2009 11/27/2013 Encounters Date Type Department Care Team Description 04/16/2025 External Device Data [facility] ABSTRACTION Provider, Abstract 04/09/2025 External Device Data [facility] ABSTRACTION Provider, Abstract 03/27/2025 External Device Data [facility] ABSTRACTION Provider, Abstract 03/18/2025 Results Follow-Up [facility] [address] [phone] Grady Felton MD LIPID PANEL, TSH, COMPREHENSIVE METABOLIC PANEL, CBC WITH DIFFERENTIAL 03/04/2025 10:00 AM CDT Office Visit [facility] [address] [phone] Saniya Garcia FNP Left hip pain (Primary Dx) 03/04/2025 9:27 AM CDT - 03/04/2025 11:59 PM CDT Hospital Encounter [facility] [address] [phone] Saniya Garcia FNP Discharge Disposition: Home or Self Care 03/04/2025 Results Follow-Up [address] [phone] Saniya Garcia FNP XR HIP 2 OR 3 VIEWS LT 02/27/2025 8:25 AM CDT Procedure visit [address] [phone] Longstanding persistent atrial fibrillation (CMS/HCC); Encounter for screening for cardiovascular disorders 02/26/2025 11:00 AM CDT Office Visit [address] [phone] Grady Felton MD Medicare annual wellness visit, subsequent (Primary Dx); Longstanding persistent atrial fibrillation (CMS/HCC); Equilibrium disorder; Primary osteoarthritis involving multiple joints; Encounter for screening for cardiovascular disorders; Breast cancer screening by mammogram from Last 3 Months Immunizations Immunization Administration Dates Next Due (PNEUMOVAX [...] DOSE QUADRIVALENT 65 YR UP PF IM 05/17/2023,05/10/2022,05/19/2021,04/30 INFLUENZA VACCINE HIGH DOSE TRIVALENT SPLIT VIRUS, (65 YR UP), 0.5ML (PF), IM 05/28/2024 INFLUENZA VACCINE QUADRIVALE NT 3 YR UP PF IM 05/10/2016 Influenza Seasonal Unspecifi ed Formulation IM 06/09/2017,05/17/2013,05/29/2012,05/31,06/01/1999 Influenza Vaccine High Dose 65+ Yrs IM 9,05/02/2018,05/02/2015 Influenza Vaccine Split 3+ Yrs IM 05/08/2014 Zoster Vaccine Live SQ 07/23/2015 Family History Medical History Relation Name Comments Heart Disease Father Eusebio Breast Cancer Maternal Aunt Diabetes Maternal Grandmother Zula Breast Cancer Mother [place] age 62 Macular Degen Mother [place] Breast Cancer Paternal Cousin Arthritis-rheumatoid Paternal Grandmother Cancer Paternal Uncle BLADDER CANCE R Amblyopia Neg Hx Blindness Neg Hx Detachment/Tears Neg Hx Glaucoma Neg Hx Hypertension Neg Hx Ovarian Cancer Neg Hx Strabismus Neg Hx Stroke Neg Hx Thyroid Disease Neg Hx Relation Name Status Comments Daughter no children Alive Father Eusebio Maternal Aunt Maternal Grandmother Zula Mother Jessica Alive Paternal Cousin Paternal Grandmother Paternal Uncle Sister Alive Social History Tobacco Use Types Packs/Day Years Used Date Smoking Tobacco: Former Cigarettes Q uit: 07/08/2018 Smokeless Tobacco: Never Tobacco Cessation:Counseling Given: No Comments:Quit smoking: chews nicorite gum Alcohol Use Standard Drinks/Week Comments No 0 (1 standard drink = 0.6 oz pur e alcohol) Financial Resource Strain Answer Date R ecorded How hard is it for you to pa y for the very basics like food, housing, medical care, and heating? Not very hard 11/03/2021 Food Insecurity Answer Date Recorded In the past 12 months, have you worried that your food would run out before you had money to buy more? Never true 11/03/2021 In the past 12 months, did y ou run out of food and didn't have money to buy more? Never true 11/03/2021 Transportation Needs Answer Date Record ed In the past 12 months, has l ack of transportation kept you from medical appointments or from getting medications? No 11/03/2021 Lack of Transportation (Non-Medical) Not on file 11/03/2021 Feeling Safe Answer Date Recorded Are you in a relationship wi th someone who hurts you emotionally and/or physically? 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 CATTLE FARM MANAGER Gender Identity Not on file Sexual Orientation Not on file Last Filed Vital Signs Vital Sign Reading Time Taken Comments Blood Pressure 120/67 03/04/2025 8:51 AM CDT Pulse 67 03/04/2025 8:51 AM CDT Temperature 36.6 C (97.8 F) 03/04/2025 8:51 AM CDT Respiratory Rate 18 03/04/2025 8:51 AM CDT Oxygen Saturation 98% 03/04/2025 8:51 AM CDT Inhaled Oxygen Concentration - - Weight 88.1 kg (194 lb 4 oz) 03/04/2025 8:51 AM CDT Height 165.1 cm (5' 5 ) 03/04/2025 8:51 AM CDT Body Mass Index 32.32 03/04/2025 8:51 AM CDT Plan of Treatment Upcoming Encounters Date Type Department Care Team (Late st Contact Info) Description 09/03/2025 8:00 AM BEEF CATTLE FARM MANAGER Office Visit [facility] [address] [phone] Grady Felton MD [address] [place] [address] Health Maintenance Due Date Last Done Comments COLORECTAL CANCER SCREENING (AUTO ORDER) 1998 COLORECTAL SCREENING 1998 Flex Sig/CT Colonography Q 5 years 1998 DTAP/TDAP/TD VACCINES (1 - Tdap) 07/05/2001 07/04/20 ZOSTER VACCINE (2 of 3) 09/17/2015 07/23/2015 FIT/FOBT Q 1 YEAR (AUTO ORDER) 04/11/2019 0 04/11/2018, 04/11/2018, 04/11/2018, Additional history exists FIT/FOBT Q 1 year 04/11/2019 04/11/2018 PNEUMOCOCCAL VACCINE 50+ YEA RS (2 of 2 - PCV) 05/14/2021 05/14/2020 INFLUENZA VACCINE (#1) 2025 , 05/17/2023, 05/10/2022, Additional history exists COVID-19 Vaccine (3 - 2024-2 6 season) 2025 10/20/2020, 09/22/2020 OSTEOPOROSIS SCREENING 06/16/2025 06/16/2020, 2006 BREAST CANCER SCREENING 06/22/2025 06/22/20 24, 06/22/2024, 06/13/2024, Additional history exists Traditional Medicare (ACO) A nnual Wellness Visit 02/27/2026 02/26/2025, 02/27/2024, 11/05/2021 Colorectal Cancer Screening 05/30/2026 FIT-DNA Q 3 years 05/30/2026 05/30/2023, 05/19/2020 FIT/ DNA Q 3 YEARS (AUTO ORDER) 05/30/2026 05/30/2023, 05/30/2023, 05/19/2020, Additional history exists RSV VACCINE (60+ or ) (1 - 1-dose 75+ series) 01/05/2028 Colorectal Cancer Screening (AUTO ORDER) 05/30/2028 FLEX SIG/CT COLONOGRAPHY Q 5 YEARS (AUTO ORDER) 05/30/2028 05/30/2023, 05/30/2023 Medical Devices Implanted Type Area Fuel Yard Operator Device Identifier Shelf Expiration Date Model / Serial / Lot Lens Io Tecnis 1pc 23 [id number] - [id number] Implanted:Qty: 1 on 02/06/2013 by Cory Singleton MD Eye Right: Eye [employer] 12/07/2016 [id number] / [id number] / Lens Io Tecnis 1pc 21 [id number] - [id number] Implanted:Qty: 1 on 02/20/2013 by Cory Singleton MD Eye Left: Eye [employer] 12/21/2016 [id number] / [id number] / Procedures Procedure Name Priority Date/Time Associated Diagnosis Comments XR HIP 2 OR 3 VIEWS LT Routine 03/04/2025 9:36 AM CDT Left hip pain CBC WITH DIFFERENTIAL Routine 02/27/2025 8:17 AM CDT Longstanding persistent atrial fibrillation (CMS/HCC) COMPREHENSIVE METABOLIC PANEL Routine 02/27/2025 8:17 AM CDT Longstanding persistent atrial fibrillation (CMS/HCC) TSH Routine 02/27/2025 8:17 AM CDT Longstanding persistent atrial fibrillation (CMS/HCC) LIPID PANEL Routine 02/27/2025 8:17 AM CDT Longstanding persistent atrial fibrillation (CMS/HCC) Encounter for screening for cardiovascular disorders MAMMO 3D JOHN SCREEN BILAT W OR WO CAD Routine 06/13/2024 8:12 AM BEEF CATTLE FARM MANAGER Breast cancer screening by mammogram COLON CANCER SCREEN, STOOL DNA Routine 05/30/2023 2:12 PM CDT Screening for colon cancer OCCULT BLOOD IMMUNOASSAY, COLORECTAL SCREEN Routine 04/11/2018 10:22 AM CDT from Last 3 Months or Most Recently Relevant to Health Maintenance Results * XR HIP 2 OR 3 VIEWS LT (03/04/2025 9:36 AM CDT) Anatomical Region Laterality Modality Lower Extremity Left Computed Radiogr aphy 03/04/2025 9:37 AM CDT Impressions 03/04/2025 10:26 AM CDT IMPRESSION: Please see below. Exam: XR HIP 2 OR 3 VIEWS LT Date/Time of Exam: 03/04/2025 9:36 AM Reason For Exam: See Diagnosis. Diagnosis: Left hip pain. Findings: No acute osseous pathology or subluxation. Joint space well maintained. Soft tissues nonspecific. Narrative Procedure Note Ashley Liu MD - 03/04/2025 IMPRESSION: Please see below. Exam: XR HIP 2 OR 3 VIEWS LT Date/Time of Exam: 03/04/2025 9:36 AM Reason For Exam: See Diagnosis. Diagnosis: Left hip pain. Findings: No acute osseous pathology or subluxation. Joint space well maintained. Soft tissues nonspecific. Saniya Garcia [facility] ORDERABL ES Final Result * (ABNORMAL) CBC WITH DIFFERENTIAL (02/27/2025 8:17 AM CDT) WBC 6.3 3.8 - 10.8 Thousand/u L [facility] RBC 4.65 3.80 - 5.10 Million/uL [facility] HEMOGLOBIN 13.8 11.7 - 15.5 g/dL [facility] HEMATOCRIT 44.7 35.0 - 45.0 % [facility] MCV 96.1 80.0 - 100.0 fL [facility] MCH 29.7 27.0 - 33.0 pg [facility] MCHC 30.9(L) 32.0 - 36.0 g/dL [facility] Comment: For adults, a slight decrease in the calculated MCHC value (in the range of 30 to 32 g/dL) is most likely not clinically significant; however, it should be interpreted with caution in correlation with other red cell parameters and the patient's clinical condition. RDW 13.5 11.0 - 15.0 % [facility] PLATELETS 247 140 - 400 Thousand/u L [facility] MPV 10.2 7.5 - 12.5 fL [facility] NEUTROPHIL ABSOLUTE 3,868 1,500 - 7,800 cells/uL [facility] LYMPHOCYTE ABSOLUTE 1,506 850 - 3,900 cells/uL [facility] MONOCYTE ABSOLUTE 725 200 - 950 cells/uL [facility] EOSINOPHIL ABSOLUTE 151 15 - 500 cells/uL [facility] BASOPHILS ABSOLUTE 50 0 - 200 cells/uL [facility] NEUTROPHIL 61.4 % [facility] LYMPHOCYTES 23.9 % [facility] MONOCYTE 11.5 % [facility] EOSINOPHILS 2.4 % [facility] BASOPHILS 0.8 % [facility] Comment: Test Performed at: [facility] [address] [phone] Stoney Ignacio MD Blood 02/27/2025 8:17 AM CDT 02/28/2025 3:27 AM CDT Grady Felton MD HEMATOLOGY ORDERABLES Fin al Result [facility] [phone] [facility] [address] [address] * TSH (02/27/2025 8:17 AM CDT) TSH 1.72 0.40 - 4.50 mIU/L [facility] Comment: Test Performed at: [facility] [address] [address] Stoney Ignacio MD Blood 02/27/2025 8:17 AM CDT 02/28/2025 3:27 AM CDT Grady Felton MD CHEMISTRY ORDERABLES Mary l Result [facility] [phone] [facility] [address] [facility] [place] [address] * (ABNORMAL) LIPID PANEL (02/27/2025 8:17 AM CDT) CHOLESTEROL 211(H) <200 mg/dL [facility] HDL 55 > OR = 50 mg/dL [facility] TRIGLYCERIDE 172(H) <150 mg/dL [facility] LDL CALCULATED 127(H) mg/dL (calc) [facility] Comment: Reference range: <100 Desirable range <100 mg/dL for primary prevention; <70 mg/dL for patients with CHD or diabetic patients with > or = 2 CHD risk factors. LDL-C is now calculated using the Jey-Jesus calculation, which is a validated novel method providing better accuracy than the Friedewald equation in the estimation of LDL-C. Jey SS et al. CARITO. 2013;310(19): 6595-5216 (http://education.import.io.[facility]/faq/PHB570) CHOL/HDL RATIO 3.8 <5.0 (calc) [facility] NON-HDL CHOLESTEROL 156(H) <130 mg/dL (calc) [facility] Comment: For patients with diabetes plus 1 major ASCVD risk factor, treating to a non-HDL-C goal of <100 mg/dL (LDL-C of <70 mg/dL) is considered a therapeutic option. Test Performed at: [facility] [address] [facility] [address] Stoney Ignacio MD Blood 02/27/2025 8:17 AM CDT 02/28/2025 3:27 AM CDT Grady Felton MD CHEMISTRY ORDERABLES Mary l Result [facility] [phone] [facility] [address] [facility] [place] [address] * COMPREHENSIVE METABOLIC PANEL (02/27/2025 8:17 AM CDT) GLUCOSE 93 65 - 99 mg/dL [facility] Comment: Fasting reference interval BUN 13 7 - 25 mg/dL [facility] CREATININE 0.80 0.60 - 1.00 mg/dL [facility] GFR 78 > OR = 60 mL/min/1. 73m2 [facility] BUN/CREAT RATIO SEE NOTE: (calc) [facility] Comment: Not Reported: BUN and Creatinine are within reference range. SODIUM 137 135 - 146 mmol/L [facility] POTASSIUM 4.1 3.5 - 5.3 mmol/L [facility] CHLORIDE 100 98 - 110 mmol/L [facility] CO2 29 20 - 32 mmol/L [facility] CALCIUM 9.5 8.6 - 10.4 mg/dL [facility] TOTAL PROTEIN 7.1 6.1 - 8.1 g/dL [facility] ALBUMIN 4.4 3.6 - 5.1 g/dL [facility] GLOBULIN 2.7 1.9 - 3.7 g/dL (calc) [facility] ALBUMIN/GLOBULIN RATIO 1.6 1.0 - 2.5 (calc) [facility] BILIRUBIN TOTAL 0.4 0.2 - 1.2 mg/dL [facility] ALKALINE PHOSPHATASE 86 37 - 153 U/L [facility] AST 16 10 - 35 U/L [facility] ALT 16 6 - 29 U/L [facility] Comment: Test Performed at: [facility] [address] [facility] [place] [address] Stoney Ignacio MD Blood 02/27/2025 8:17 AM CDT 02/28/2025 3:27 AM CDT Grady Felton MD CHEMISTRY ORDERABLES Mary l Result [facility] [phone] [facility] [address] [address] * MAMMO 3D JOHN SCREEN BILAT W OR WO CAD (06/13/2024 8:12 AM BEEF CATTLE FARM MANAGER) Anatomical Region Laterality Modality Breast Bilateral Mammography, Dig ital Radiography Impressions 06/22/2024 7:58 PM BEEF CATTLE FARM MANAGER : No mammographic evidence of malignancy. BI-RADS ASSESSMENT: 1 - Negative RECOMMENDATION: Routine annual screening mammography. Narrative 06/22/2024 7:58 PM BEEF CATTLE FARM MANAGER EXAM: MAMMO SCRN BILAT 3D JOHN W OR WO CAD INDICATION: Screening COMPARISON: 06/10/2023 MAMMO SCRN BILAT 3D JOHN W OR WO CAD, 04/23/2022 MAMMO PRIOR STUDY, 11/06/2020 MAMMO SCREEN BILAT W OR WO CAD, 06/27/2019 MAMMO SCRN BILAT 3D JOHN W OR WO CAD, 06/23/2018 MAMMO SCRN BILAT 3D JOHN W OR WO CAD, 12/16/2016 MAMMO SCREEN BILAT W OR WO CAD, 06/19/2015 MAMMO SCREEN BILAT W OR WO CAD, 05/09/2014 MAMMO SCREEN BILAT W OR WO CAD, and 10/10/2012 MAMMO SCREEN BILAT W OR WO CAD BREAST COMPOSITION: The breasts are almost entirely fatty. FINDINGS: RIGHT BREAST: There are no suspicious masses, calcifications, or areas of architectural distortion. LEFT BREAST: There are no suspicious masses, calcifications, or areas of architectural distortion. Grady Felton MD MAMMO ORDERABLES Final Re sult * COLON CANCER SCREEN, STOOL DNA (05/30/2023 2:12 PM CDT) COLOGUARD RESULT Negative Negative [facility] Comment: NEGATIVE TEST RESULT. A negative Cologuard result indicates a low likelihood that a colorectal cancer (CRC) or advanced adenoma (adenomatous polyps with more advanced pre-malignant features) is present. The chance that a person with a negative Cologuard test has a colorectal cancer is less than 1 in 1500 (negative predictive value >99.9%) or has an advanced adenoma is less than 5.3% (negative predictive value 94.7%). These data are based on a prospective cross-sectional study of 10,000 individuals at average risk for colorectal cancer who were screened with both Cologuard and colonoscopy. (Loi Meyer et al, N Engl J Med 2014;370(14):6536-6959) The normal value (reference range) for this assay is negative. COLOGUARD RE-SCREENING RECOMMENDATION: Periodic colorectal cancer screening is an important part of preventive healthcare for asymptomatic individuals at average risk for colorectal cancer. Following a negative Cologuard result, the [place] Cancer Society and U.S. Multi-Society Task Force screening guidelines recommend a Cologuard re-screening interval of 3 years. References: [place] [employer] Society Guideline for Colorectal Cancer Screening: https://www.cancer.org/cancer/xyrgm-tjlkmc-ocbkbd/fzjcbyoyq-rsstspoue-rfjbnzf/ac s-rec ommendations.html.; Manuel DK, Berry DUPONT, Carmen SalmeronK, Colorectal Cancer Screening: Recommendations for Physicians and Patients from the U.S. Multi-Society Task Force on Colorectal Cancer Screening , Am J Gastroenterology 2017; 112:1609-4191. TEST DESCRIPTION: Composite algorithmic analysis of stool DNA-biomarkers with hemoglobin immunoassay. Quantitative values of individual biomarkers are not reportable and are not associated with individual biomarker result reference ranges. Cologuard is intended for colorectal cancer screening of adults of either sex, 45 years or older, who are at average-risk for colorectal cancer (CRC). Cologuard has been approved for use by the U.S. FDA. The performance of Cologuard was established in a cross sectional study of average-risk adults aged 50-84. Cologuard performance in patients ages 45 to 49 years was estimated by sub-group analysis of near-age groups. Colonoscopies performed for a positive result may find as the most clinically significant lesion: colorectal cancer [4.0%], advanced adenoma (including sessile serrated polyps greater than or equal to 1cm diameter) [20%] or non- advanced adenoma [31%]; or no colorectal neoplasia [45%]. These estimates are derived from a prospective cross-sectional screening study of 10,000 individuals at average risk for colorectal cancer who were screened with both Cologuard and colonoscopy. (Loi Chandra al, N Engl J Med 2014;370(14):5655-8469.) Cologuard may produce a false negative or false positive result (no colorectal cancer or precancerous polyp present at colonoscopy follow up). A negative Cologuard test result does not guarantee the absence of CRC or advanced adenoma (pre-cancer). The current Cologuard screening interval is every 3 years. ([employer] [employer] Society and U.S. Multi-Society Task Force). Cologuard performance data in a 10,000 patient pivotal study using colonoscopy as the reference method can be accessed at the following location: www.Attendify.[facility]/results. Additional description of the Cologuard test process, warnings and precautions can be found at www.My [email or web address].[facility] [employer]. Stool STOOL SPECIMEN / Unknown 05/30/2023 2:12 PM CDT 05/31/2023 9:46 PM CDT us Grady Felton MD BODY FLUIDS AND STOOLS Fi nal Result [employer] software CLIA # [id number] [address], [address] [place] [address] * OCCULT BLOOD IMMUNOASSAY, COLORECTAL SCREEN (04/11/2018 10:22 AM CDT) OCCULT BLOOD, STOOL Negative Negative 04/12/2018 11:15 AM CDT [facility] Stool STOOL SPECIMEN / Unknown Collection / Unknown 04/11/2018 10:22 AM CDT 04/11/2018 8:14 PM CDT us Aye Flores MD BODY FLUIDS AND STOOLS Mary l Result [facility]ANE [facility] CLIA# [id number] [facility] [place] [address] from Last 3 Months or Most Recently Relevant to Health Maintenance Insurance MEDICARE PART A AND B [facility] SUPP * Guarantor: JEAN GAO Account Type Relation to Patient Date of Phone Billing Address Personal/Family [address] [address] RX [employer] Member Subscriber Plan / Payer (Ef fective for All Dates) Name:Jean Gao Relation to Subscriber:Self Name:Jean Gao Payer ID:Not on file Group ID:[id number] Type:RX Commercial Address: [address] [place] [employer] PLANS (INTERNAL) [facility] Advance Directives For more information, please contact: [phone] Documents on File Type Date Recorded Patient Carton Counter Feeder Expl anation Advance Directive Living Will 12/02/2021 2:02 PM Advance Directive Living Will Advance Directive POA 12/02/2021 2:02 PM A dvance Directive POA Care Teams Zipper Setter Lockstitch Relationship Specialty Start Date End Date Grady Felton MD [address] [address] PCP - General Family Practice 03/03/20
--- OUTSIDE RECORDS SUMMARY | 2025-05-20 23:39 | XMS_ITS | Encounter Summary ---
Author Organization [facility] Address [address] Attn: Epic [place] [address] Care Team Providers Care Broker Name Role Phone Grady Felton MD Primary Care Provider [phone] Encounter Details Date Type Department Care Team (Late st Contact Info) Description 06/16/2001 Outpatient Historical Vic Gregory MD [address] [address] Social History Tobacco Use Types Packs/Day Years Used Date Smoking Tobacco: Never Assessed Comments Unknown Sex and Gender Information Value Date Recorded Sex Assigned at Not on file Legal 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
--- NOTE | 2025-05-20 23:55 | ECG_ITS ---
[employer] Test Date: 2025-05-20 Pat Name: Nanette Gao Department: Room: Gender: Female Product Engineer: : [id number] Requested By: Sarita Pruitt Order Number: [id number] Nakul MD: Jack Grimaldo M.D. Measurements Intervals [place] Rate: 79 P: 49 NH: 186 QRS: -15 QRSD: 94 T: 29 QT: 399 QTc: 458 Interpretive Statements SINUS RHYTHM WITH OCCASIONAL ECTOPIC PREMATURE COMPLEXES INCOMPLETE RIGHT BUNDLE BRANCH BLOCK [90+ ms QRS DURATION, TERMINAL R IN V1/V2, 40+ ms S IN I/aVL/V4/V5/V6] PROBABLE SEPTAL MYOCARDIAL INFARCTION , OF INDETERMINATE AGE [35 ms Q WAVE IN V1/V2] Compared to ECG 05/23/2024 04:45:25 Incomplete right bundle-branch block now present Myocardial infarct finding now present Left bundle-branch block no longer present Electronically Signed On 05-22-2025 16:56:17 CDT by Jack Grimaldo M.D. [email or web address] [id number]
[2025-05-21 00:02] LABS: Hematocrit 43.0 % (36-47); Hemoglobin 14.40 g/dL (11.27-16.99); Mean Corpuscular HGB Conc 33.5 g/dL (30-55); Mean Corpuscular Hemoglobin 30.1 pg (27-33); Mean Corpuscular Volume 89.8 fl (85-98); Nucleated Red Blood Cells % 0 %; Platelet Count 257 10^3/cmm (157-399); Red Blood Count 4.79 10^6/uL (3.85-5.65); White Blood Count 9.21 10^3/uL (3.29-11.43)
[2025-05-21 00:11] LABS: Anion Gap 19.2 (5-19); Blood Urea Nitrogen 16 mg/dL (8-23); Calcium 9.4 mg/dL (8.5-10.5); Carbon Dioxide 23 mmol/L (22-29); Chloride 100 mmol/L (98-107); Creatinine Clr Calc Pharmacy 67.5269; Glucose 118 mg/dL (65-115); Magnesium 2.1 mg/dL (1.7-2.3); Osmolality Calculated 290 mOsm/kg (285-295); Potassium 3.2 mmol/L (3.5-5.1); Sodium 139 mmol/L (136-145)
[2025-05-21 00:16] VITALS: BP 133/58; PULSE 65; RESP 22; O2SAT 95
[2025-05-21 01:31] VITALS: BP 124/74; PULSE 72; O2SAT 98
[2025-05-21 01:55] VITALS: BP 124/74; PULSE 60; RESP 18; O2SAT 96
== END 2025-05-21 01:58 | disposition home or self-care (01) ==
PROVIDERS: Emergency Provider Emergency Medicine; PCP Family Medicine
DX: I48.0 Paroxysmal atrial fibrillation (principal); Z87.891 Personal history of nicotine dependence; I12.9 Hypertensive chronic kidney disease with stage 1 through stage 4 chronic kidney disease, or unspecified chronic kidney disease; N18.9 Chronic kidney disease, unspecified
CPT/HCPCS: 80048; 83735; 85025; 93005; 99284; J9999

== ENCOUNTER → 2025-06-24 13:05 | Outpatient (BNVA) | payer MEDICARE, OTHER, SELFPAY | PROVIDERS: PCP Family Medicine; Visit Provider Nurse Practitioner Family | DX: I48.91 Unspecified atrial fibrillation (principal); Z79.01 Long term (current) use of anticoagulants; I73.9 Peripheral vascular disease, unspecified; I10 Essential (primary) hypertension; E87.6 Hypokalemia; R25.2 Cramp and spasm; Z90.5 Acquired absence of kidney; Z87.891 Personal history of nicotine dependence | CPT/HCPCS: 84132; 99213 ==

== ENCOUNTER 2025-07-25 14:34 | Outpatient (CLI) | payer MEDICARE, OTHER, SELFPAY ==
--- NOTE | 2025-07-25 14:43 | CTR_ITS ---
PROCEDURE INFORMATION: Exam: CT Neck With Contrast Exam date and time: 07/25/2025 3:15 PM Age: 70 years old Clinical indication: Condition or disease; Thyroid disorder; Other: Thyroid nodule TECHNIQUE: Imaging protocol: Computed tomography of the neck with contrast. Radiation optimization: All CT scans at this facility use at least one of these dose optimization techniques: automated exposure control; mA and/or kV adjustment per patient size (includes targeted exams where dose is matched to clinical indication); or iterative reconstruction. Contrast material: OMNI 350; Contrast volume: 100 ml; Contrast route: INTRAVENOUS (IV); COMPARISON: CT neck w con* [id number] 12/30/2022 7:44 AM RADIATION DOSE METRICS: Total DLP (mGy-cm): 215.94 FINDINGS: Salivary glands: Normal. Glands are normal in size. Pharynx: Unremarkable. No significant tonsillar enlargement. Larynx: Unremarkable. Epiglottis is normal. Thyroid: There is a 2.2 x 1.4 cm nodule arising from the isthmus of the thyroid. This was also present on 12/30/2022 and appears unchanged. No adjacent adenopathy. Trachea: Visualized trachea is unremarkable. Lungs: Unremarkable as visualized. Lymph nodes: See Thyroid finding. Bones/joints: Unremarkable. No acute fracture. Soft tissues: Unremarkable. No significant soft tissue swelling. CT/CT neck w con* [id number] IMPRESSION: Stable thyroid nodule. Ultrasound recommended for better evaluation of the thyroid gland.
[2025-07-25 15:13] LABS: Blood Urea Nitrogen 17 mg/dL (8-23)
[2025-07-25] MEDS: iohexol 350 mg/mL 500 mL Btl (per mL) IV (15:22)
== END 2025-07-25 14:35 | disposition home or self-care (01) ==
LOC: RAD 14:36
PROVIDERS: PCP Family Medicine; Visit Provider Specialist
DX: R13.19 Other dysphagia (principal); J37.0 Chronic laryngitis; E04.1 Nontoxic single thyroid nodule
CPT/HCPCS: 70491; 82565; 84520

== ENCOUNTER 2025-07-31 07:51 | Outpatient (CLI) | payer MEDICARE, OTHER, SELFPAY ==
--- NOTE | 2025-07-31 07:58 | FL_ITS ---
WS: [id number] Barium swallow and esophagram, 07/31/2025 Clinical Data: DYSPHAGIA Comparison: Modified barium swallow, 01/07/2023 Fluoroscopy time: 1min [id number] # of spot films: 45 Findings: The patient swallowed the thick and thin barium, and it flowed through the hypopharynx without hesitation. No stricture, mass, polyp or erosion was seen. No aspiration or penetration occurred. 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 The barium entered the esophagus and there was poor motility throughout. No reflux, stricture, polyp, mass, erosion or ulcer was noted. No reflux was present. There is a small sliding hiatal hernia. The barium passed normally into the stomach. FL/PA barium swallow [id number] Impression: 1. Poor esophageal motility. 2. Sliding hiatal hernia.
== END 2025-07-31 07:52 | disposition home or self-care (01) ==
LOC: RAD 07:53
PROVIDERS: PCP Family Medicine; Visit Provider Specialist
DX: R13.19 Other dysphagia (principal); J37.0 Chronic laryngitis; K44.9 Diaphragmatic hernia without obstruction or gangrene
CPT/HCPCS: 74220

== ENCOUNTER 2025-08-05 08:58 | Outpatient (CLI) | payer MEDICARE, OTHER, SELFPAY ==
--- NOTE | 2025-08-05 09:06 | FL_ITS ---
WS: [id number] Modified barium swallow, 08/05/2025 Clinical Data: Other dysphagia Comparison: None. Fluoroscopy time: 2min [id number] # of spot films: Findings: There is minimal residue with liquids and thick material but cleared promptly with double swallows. There is no aspiration or penetration. The barium tablet moved normally from the oral cavity into the hypopharynx then the esophagus and finally the stomach. FL/FL barium swallow modifd [id number] Impression: 1. Minimal residue with liquids and thick material which cleared with double sw allows. 2. No aspiration or penetration.
== END 2025-08-05 08:59 | disposition home or self-care (01) ==
LOC: RAD 09:00
PROVIDERS: PCP Family Medicine; Visit Provider Specialist
DX: R13.19 Other dysphagia (principal); J37.0 Chronic laryngitis
CPT/HCPCS: 74230; 92611